=== PATIENT | female | born 2000 | race Caucasian/White ===

== ENCOUNTER 2022-03-22 17:00 | Outpatient (RCR) | payer BC, SELFPAY | END 2022-05-15 12:14 | disposition home or self-care (01) | PROVIDERS: PCP Family Medicine; Visit Provider Family Medicine | DX: M25.511 Pain in right shoulder (principal); Z51.89 Encounter for other specified aftercare | CPT/HCPCS: 97110; 97140; 97161 ==

== ENCOUNTER 2022-03-28 12:54 | Emergency (ER) | payer BC, SELFPAY ==
[2022-03-28 13:22] VITALS: BP 137/72; PULSE 123; RESP 16; TEMP 37; O2SAT 97; BMI 35.9
[2022-03-28] MEDS: HYDROCODONE-ACETAMIN 5-325 MG 1 TAB PO (15:34)
[2022-03-28] MEDS: LIDOCAINE 1% MDV 30 ML INJECTION (15:35)
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
--- OUTSIDE RECORDS SUMMARY | 2022-03-28 15:49 | XMS_ITS | Encounter Summary ---
:2000 Author Organization [facility] Address [address] [place] [address] Care Team Providers Name Role Phone Lionel Luo M.D. Primary Care Provider [phone] Reason for Visit Reason Comments COVID Inquiry Encounter Details Date Type Department Care Team Description 05/26/2020 Clinical Communication Department of Lionel Beatty Medicine in [place] [address] [place], [place] [phone] Social History Tobacco Use Types Packs/Day Years [...] 07/21/2021 relatives? How often do you attend baptism or sabianist services? Never 07/21/2021 Do you belong to any clubs or organizations such as No 07/21/2021 baptism groups, unions, fraternal or athletic groups, or [...] 12 months, you worried that your food Someti mes true 07/21/2021 would run out before you got money to buy more. Within the past 12 months, the food you bought just Never tr ue 07/21/2021 didn't last and you didn't have [...] place to sleep or slept in a fdc (including now)? Education Answer Date Recorded What is the highest level of school you have Some college, n o degree 05/29/2019 completed or the highest degree you have received? 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 documented as of this encounter Miscellaneous Notes Telephone Encounter - Zain Chioma Alvarado - 05/26/2020 12:39 PM CST COVID DOS/PASS Screening What is the patient requesting?: Additional Appointments (Continue with screening) Have you tested positive for COVID-19 in the last 30 days (20 days for ARZ) or do you have a pendingCOVID-19 test because you had symptoms?: No (Continue with screening) Have you had close contact* with a person who has a LABORATORY CONFIRMED case of COVID-19 in the past 14 days?: No (Continue with screening) When is the patient asking to be scheduled F2F?: Not applicable in [facility], [facility], [facility] (Continue screening) Plan: Endpoint recommendation: Followed regional [facility] *Reminder if sending patient for testing in [facility] or [facility], an email notification is required. EATION THERAPY DIRECTOR documented in this encounter Plan of Treatment Not on filedocumented as of this encounter Visit Diagnoses Not on filedocumented in this encounter Additional Health Concerns Assessment Noted Time PHQ-9 Depression Total Score: 9 01/21/2019 3:13 PM CDT documented as of this encounter Care Teams Field Staff Relationship Specialty Start Date End Date Lionel Luo M.D. PCP - General 01/12/17 [address] [place] [address] documented as of this encounter
--- OUTSIDE RECORDS SUMMARY | 2022-03-28 15:49 | XMS_ITS | Encounter Summary ---
:2000 Author Organization [facility] Address [address] [place] [address] Care Team Providers Name Role Phone Lionel Luo M.D. Primary Care Provider [phone] Reason for Referral Specialty Diagnoses / Procedures Referred By Contact Refer red To Contact [facility] Aneesh rodríguez [facility] Region [address] [place] [address] Referral ID Status Reason Start Date Expiration Date Visits Requ ested Visits Authorized Encounter Details Date Type Department Care Team Description 11/18/2020 Immunization Department of [facility] er For COVID-19 Medicine in [facility] Immunization [place] (Primary Dx) [address] [place] [address] Social History Tobacco Use Types Packs/Day Years [...] 07/21/2021 relatives? How often do you attend yazidism or denominational services? Never 07/21/2021 Do you belong to any clubs or organizations such as No 07/21/2021 yazidism groups, unions, fraternal or athletic groups, or [...] place to sleep or slept in a longterm (including now)? Education Answer Date Recorded What is the highest level of school you have Some college, n o degree 05/29/2019 completed or the highest degree you have received? 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 encounter Plan of Treatment Scheduled Referrals Name Type Priority Associated Diagnoses Order S chedule Covid immunization Outpatient Referral Routine Encounter For E xpected: office visit COVID-19 Vaccine 12/09/2020, Subsequent; 21 days Immunization Expires: 11/19/2023 documented as of this encounter Visit Diagnoses Diagnosis Encounter For COVID-19 Vaccine Immunizat ion - Primary documented in this encounter Additional Health Concerns Assessment Noted Time PHQ-9 Depression Total Score: 9 01/21/2019 3:13 PM CDT documented as of this encounter Care Teams Home Lending Officer Relationship Specialty Start Date End Date Lionel Luo M.D. PCP - General 01/12/[address] [facility] [phone] documented as of this encounter
--- OUTSIDE RECORDS SUMMARY | 2022-03-28 15:49 | XMS_ITS | Encounter Summary ---
:2000 Author Organization [facility] Address [address] [place] [address] Care Team Providers Name Role Phone Lionel Luo M.D. Primary Care Provider [phone] Encounter Details Date Type Department Care Team Description 09/28/2020 Hospital Encounter Department of Radiology, Sherrell Hamm, [facility], in CONCESSION STAND ATTENDANT, C. N.P. [facility] [address] [place] [phone] Social History Tobacco Use Types Packs/Day Years [...] 07/21/2021 relatives? How often do you attend buddhism or bahai services? Never 07/21/2021 Do you belong to any clubs or organizations such as No 07/21/2021 buddhism groups, unions, fraternal or athletic groups, or [...] place to sleep or slept in a fpc (including now)? Education Answer Date Recorded What is the highest level of school you have Some college, n o degree 05/29/2019 completed or the highest degree you have received? 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 dextroamphetamine Take 1 capsule 30 capsule 0 01/21/2019 (DEXEDRINE SPANSULE) 15 mg (15 mg total) by ER capsuleIndications: mouth daily. Attention Deficit With Hyperactivity Disorder propranoloL (INDERAL) 40 mg 0 07/07/20 20 tablet FLUoxetine (PROzac) 10 mg 0 09/27/2020 07/21/2021 capsule FLUoxetine (PROzac) 20 mg Take 1 capsule 30 capsule 1 201807/21/2021 capsuleIndications: Anxiety (20 mg total) by Generalized Disorder mouth daily. levonorgestreL-ethinyl Take 1 tablet by 84 tablet 4 020 07/04/2021 estrad mouth daily. (DUYENE,ABNER,ARIADNE) 0.1-20 mg-mcg per tabletIndications: Management Contraception Prescription documented as of this encounter Plan of Treatment Not on filedocumented as of this encounter Procedures Procedure Name Priority Date/Time Associated Comments Diagnosis DX ANKLE RIGHT 3+ RAD - Routine 09/28/2020 6:50 Injury Ankle Result s for this VIEWS (most inpatients PM CDT Initial Right procedure are in and all the results outpatients) section. documented in this encounter Results DX Ankle Right 3+ Views (09/28/2020 6:50 PM CDT) Anatomical Region Laterality Modality Lower Extremity, Ankle, Musculoskeletal RST LOS, Right Digital Radiography Musculoskeletal ARZ LOS, Muskuloskeletal FLA LOS Specimen (Source) Anatomical Collection Method Collection Time Re ceived Time Location / / Volume Laterality 09/28/2020 7:01 PM CDT Impressions 09/28/2020 7:02 PM CDT No acute radiographic abnormality of the right ankle. Narrative 09/28/2020 7:02 PM CDT EXAM: DX ANKLE RIGHT 3+ VIEWS COMPARISON: 12/11/2012. FINDINGS: Stable bone island within the right distal tibia. Small ossification distal to the right lateral malleolus al so appears stable, likely sequela of prior ligamentous injury. No acute fract ure or destructive osseous abnormality of the right ankle. No significant soft tissue swelling. No degenerative findings. Ankle mortise and talar dome a ppear intact. Procedure Note [place] Joshua M.D. - 09/28/2020For matting of this note might be different from the original. EXAM: DX ANKLE RIGHT 3+ VIEWS COMPARISON: 12/11/2012. FINDINGS: Stable bone island within the right distal tibia. Small ossification distal to the right lateral malleolus al so appears stable, likely sequela of prior ligamentous injury. No acute fract ure or destructive osseous abnormality of the right ankle. No significant soft tissue swelling. No degenerative findings. Ankle mortise and talar dome a ppear intact. IMPRESSION: No acute radiographic abnormality of the right ankle. Savi Hamm APRN, C.N.P. IMG DIAGNOSTIC IMAGING PRO CEDURES documented in this encounter Visit Diagnoses Not on filedocumented in this encounter Additional Health Concerns Assessment Noted Time PHQ-9 Depression Total Score: 9 01/21/2019 3:13 PM CDT documented as of this encounter Care Teams Canvas Products Sales Representative Relationship Specialty Start Date End Date Lionel Luo M.D. PCP - General 01/12/[address] [place] [phone] documented as of this encounter
--- OUTSIDE RECORDS SUMMARY | 2022-03-28 15:49 | XMS_ITS | Encounter Summary ---
:2000 Author Organization [facility] Address [address] [place] [address] Care Team Providers Name Role Phone Lionel Luo M.D. Primary Care Provider [phone] Reason for Referral Outpatient (Routine) - Closed Specialty Diagnoses / Procedures Referred By Contact Refer red To Contact Sleep Medicine Diagnoses Obstructive Sleep Apnea Adult Alyssa Thomas APRN, [facility] C.N.P. [address] [place] [address] Referral ID Status Reason Start Date Expiration Date Visits V isits Requested Authorized [id number] Closed Specialty 03/08/2021 03/08/2022 1 1 Services Required Reason for Visit Reason Comments Sleep Apnea Mouth guard, has questions a bout cpap Encounter Details Date Type Department Care Team Description 03/08/2021 Office Visit Department of [facility] Alyssa Thomas Obst ructive Sleep Apnea Medicine in [place], C.N.P. Adult (Primary Dx) Christian Darling [address] [place] [phone] Social History Tobacco Use Types Packs/Day Years [...] 07/21/2021 relatives? How often do you attend episcopalian or yazidi services? Never 07/21/2021 Do you belong to any clubs or organizations such as No 07/21/2021 episcopalian groups, unions, fraternal or athletic groups, or [...] place to sleep or slept in a skilled nursing (including now)? Education Answer Date Recorded What is the highest level of school you have Some college, n o degree 05/29/2019 completed or the highest degree you have received? 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 - 03/08/2021 11:30 AM CDT SUBJECTIVE CHIEF COMPLAINT / REASON FOR VISIT Sleep Apnea (Mouth guard, has questions about cpap) HISTORY OF PRESENT ILLNESS Ruy Rice is a 20 y.o. female who presents for prescription for mouth guard. Patient has known obstructive sleep apnea. She started on a CPAP in March 2018. She has been seen [facility] in [place] for her sleep apnea. She is not tolerating the CPAP as it is uncomfortable for her to wear it. She becomes claustrophobic. They have tried a new mask and she still not having any benefit. Mom states she notices a huge difference in the patient's mood and behavior with her wearing the CPAP and not. They were more concerned because she is starting college again what to make sure she isgetting good sleep. They are wondering if she can have a mouth guard instead of the CPAP to help with her sleep apnea. Mom is also questioning whether not she can start a sleep aid to help her toleratethe CPAP better. Review of Systems Comprehensive review of systems is negative except noted above. The following portions of the patient's history were reviewed and updated as appropriate: allergies,current medications, problem list and social history OBJECTIVE BP 127/78 (BP Location: Left arm, Patient Position: Sitting, Cuff Size: Regular) Pulse 86 Temp 36.1 ??C (Temporal) Resp 20 Wt 97.6 kg SpO2 98% BMI 33.71 kg/m?? PHYSICAL EXAM General Appearance: awake, alert, oriented, in no acute distress Skin: skin color, texture, turgor are normal Lungs: Breathing Pattern: regular, no distress ASSESSMENT / PLAN 1. Obstructive Sleep Apnea Adult Discussed with patient that I would recommend following back up with her sleep medicine provider fortheir input. I would not know what type of mouth guard to prescribe or if a mouth guard is appropriate for the type of sleep apnea she has been diagnosed. Discussed that I do not recommend starting a sleep aid to be able use the CPAP at this point. I would want Sleep medicine's approval before starting the sleep state on a regular basis. I did give the patient a referral to Sleep Medicine within the [facility] if this is more convenient. - Sleep Medicine - General consult (clinic); Future All of patient's questions were answered. Patient is agreeable with plan outlined above. Patient will return to clinic if symptoms do not improve as expected or become worse. documented in this encounter Plan of Treatment Scheduled Referrals Name Type Priority Associated Diagnoses Order S shweta Sleep Medicine - Outpatient Referral Routine Obstructive Sleep Expected: General consult Apnea Adult 03/08/2021 (clinic) (Approximate), Expires: 03/08/2024 documented as of this encounter Visit Diagnoses Diagnosis Obstructive Sleep Apnea Adult - Primary documented in this encounter Additional Health Concerns Assessment Noted Time PHQ-9 Depression Total Score: 9 01/21/2019 3:13 PM CDT documented as of this encounter Care Teams Campus Executive Director Relationship Specialty Start Date End Date Lionel Luo M.D. PCP - General 01/12/[address] [facility] [phone] documented as of this encounter
--- OUTSIDE RECORDS SUMMARY | 2022-03-28 15:49 | XMS_ITS | Encounter Summary ---
:2000 Author Organization [facility] Address [address] [place] [address] Care Team Providers Name Role Phone Lionel Luo M.D. Primary Care Provider [phone] Reason for Visit Reason Comments Anxiety For more than 8 years Appointment Request (Routine) - Closed Specialty Diagnoses / Procedures Referred By Contact Refer red To Contact Family Medicine Referral ID Status Reason Start Date Expiration Date Visits Requ ested Visits Authorized [id number] Closed 07/20/2021 07/20/2022 1 1 Encounter Details Date Type Department Care Team Description 07/21/2021 Office Visit Department of [facility] Alyssa Thomas Anxi ety [facility] Medicine in [place] DANCER, C.N.P. Disorder Christian Darling a [address] [place] [phone] Social History Tobacco Use Types Packs/Day Years [...] How often do you attend baptism or scientology services? Never 07/21/2021 Do you belong to [...] place to sleep or slept in a group home (including now)? Education Answer Date Recorded What is the highest level of school you have completed or 12 th grade 07/21/2021 the highest degree you have received? 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 encounter Last Filed Vital Signs Vital Sign Reading Time Taken Comments Blood Pressure 132/85 07/21/2021 2:56 PM PIECE MAKER Pulse 92 07/21/2021 2:56 PM PIECE MAKER Temperature 36.8 ??C (98.2 ??F) 07/21/2021 2:56 PM PIECE MAKER Respiratory Rate 16 07/21/2021 2:56 PM PIECE MAKER Oxygen Saturation 98% 07/21/2021 2:56 PM PIECE MAKER Inhaled Oxygen Concentration - - Weight 105 kg (232 lb 8 oz) 07/21/2021 2:56 PM PIECE MAKER Height 171.5 cm (5' 7.5) 07/21/2021 2:56 PM PIECE MAKER Body Mass Index 35.88 07/21/2021 2:56 PM PIECE MAKER documented in this encounter Progress Notes Alyssa Thomas, BARBER, C.N.P. - 07/21/2021 3:00 PM CST SUBJECTIVE CHIEF COMPLAINT / REASON FOR VISIT Anxiety (For more than 8 years) HISTORY OF PRESENT ILLNESS Ruy Rice is a 21 y.o. female who presents for medication refill. Patient needs a refill of her fluoxetine. She states she is almost out. She does have an appointment Psychiatry at the end ofthe month. She states anxiety is pretty well controlled at this time with the 30 mg of fluoxetine. No thoughts of suicide or self-harm. Review of Systems Comprehensive review of systems is negative except noted above. The following portions of the patient's history were reviewed: allergies, current medications, problem list and social history OBJECTIVE BP 132/85 Pulse 92 Temp 36.8 ??C (Temporal) Resp 16 Ht 171.5 cm Wt 105 kg SpO2 98% BMI35.88 kg/m?? PHYSICAL EXAM General Appearance: awake, alert, oriented, in no acute distress Skin: skin color, texture, turgor are normal Lungs: Breathing Pattern: regular, no distress Psych exam:alert,oriented, in NAD with a full range of affect, normal behavior and no psychotic features ASSESSMENT / PLAN 1. Anxiety Generalized Disorder I refilled Prozac for a total of 30 mg for the next month with 1 refill. Patient will follow-up withpsychiatry as scheduled. Further treatment evaluation based on Psychiatry recommendations. - FLUoxetine (PROzac) 10 mg capsule; Take 1 capsule (10 mg total) by mouth daily. Take with 20 mg Prozac for total of 30 mg daily. Dispense: 30 capsule; Refill: 1 - FLUoxetine (PROzac) 20 mg capsule; Take 1 capsule (20 mg total) by mouth daily. Take with 10 mg Prozac for total 30 mg of Prozac Dispense: 30 capsule; Refill: 1 All of patient's questions were answered. Patient is agreeable with plan outlined above. Patient will return to clinic if symptoms do not improve as expected or become worse. Answers for HPI/ROS submitted by the patient on 07/21/2021 No general issues: Yes No eye issues: Yes No ENT issues: Yes No heart issues: Yes No respiratory issues: Yes No GI issues: Yes No muscle/bone issues: Yes No skin issues: Yes No neurologic issues: Yes Little interest or pleasure in doing things: Yes Feeling nervous, anxious or on edge: Yes Not being able to stop or control worrying: Yes No blood/lymph issues: Yes No urinary/reproductive issues: Yes E MAKER documented in this encounter Plan of Treatment Not on filedocumented as of this encounter Visit Diagnoses Diagnosis Anxiety Generalized Disorder documented in this encounter Additional Health Concerns Assessment Noted Time PHQ-9 Depression Total Score: 4 07/21/2021 2:28 PM PIECE MAKER documented as of this encounter Care Teams Professor Of Archaeology Relationship Specialty Start Date End Date Lionel Luo M.D. PCP - General 01/12/[address] [facility] [place] [id number] documented as of this encounter
--- OUTSIDE RECORDS SUMMARY | 2022-03-28 15:49 | XMS_ITS | Encounter Summary ---
:2000 Author Organization [facility] Address [address] [place] [address] Care Team Providers Name Role Phone Lionel Luo M.D. Primary Care Provider [phone] Reason for Visit Reason Comments Med Refill control Encounter Details Date Type Department Care Team Description 05/26/2020 Refill Department of [facility] Lionel Luo, Med Refill ( Medicine in [place]ie Darling control ) [place] [address] [place] [phone] Social History Tobacco Use Types Packs/Day Years [...] or more drinks on one occasion? Ne mraisa 05/29/2019 Comment: Not asked Social Isolation Answer Date Recorded In a typical week, how many times do you talk on the Once a week 07/21/2021 phone with family, friends, or neighbors? How often do you get together with friends or Once a week 07/21/2021 relatives? How often do you attend mormon or adventism services? Never 07/21/2021 Do you belong to any clubs or organizations such as Sonya 07/21/2021 mormon groups, unions, fraternal or athletic groups, or [...] place to sleep or slept in a snf (including now)? Education Answer Date Recorded What is the highest level of school you have Some college, n o degree 05/29/2019 completed or the highest degree you have received? 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 - 05/26/2020 3:55 PM TIE KNITTER HELPER Name of Medication(s) Needing Refill: Levonorgestrel-ethinyl estrad Last Appointment: 05/29/2019 Future Appointment: 06/03/2020 with Alyssa Leyias KNITTER HELPER Telephone Encounter - Chioma Pittman - 05/26/2020 12:36 PM CST Please do not reply to sender,emails are not monitored. Thank you. If you need a prescription refill please call your pharmacy. Please allow 3 business days for processing. Expert RN: N/A (Med Refill Only) Call Center Template: ??? May we leave a message for you on this phone? no What can I help you with today? Patient has appt w/Alyssa Leyias scheduled on 06/03 ??? If Medication Refill: o What is the name and strength of the medication? control o What do you use the medication for? o How many pills do you have left? 1 week left o What pharmacy do you use (include location)? [facility] I will send this information to the appropriate staff member who will look into your concern. Is there anything else I can help you with today? Thank you for calling [facility]. KNITTER HELPER documented in this encounter Plan of Treatment Not on filedocumented as of this encounter Visit Diagnoses Diagnosis Management Contraception Prescription documented in this encounter Additional Health Concerns Assessment Noted Time PHQ-9 Depression Total Score: 9 01/21/2019 3:13 PM CDT documented as of this encounter Care Teams Television Equipment Operator Relationship Specialty Start Date End Date Lionel Luo M.D. PCP - General 6/30/[address] [place] [address] documented as of this encounter
--- OUTSIDE RECORDS SUMMARY | 2022-03-28 15:49 | XMS_ITS | Encounter Summary ---
:2000 Author [address] [facility] Address [address] [place] [address] Care Team Providers Name Role Phone Lionel Luo M.D. Primary Care Provider [phone] Reason for Visit Reason Comments COVID Nurse Line Encounter Details Date Type Department Care Team Description 01/26/2020 Clinical Communication Central Appointment Line, Covid YAMEL Nurse Line Office in [facility] [address] [place], [place] [phone] Social History Tobacco Use Types Packs/Day Years [...] 07/21/2021 relatives? How often do you attend mandaen or restorationist services? Never 07/21/2021 Do you belong to any clubs or organizations such as No 07/21/2021 mandaen groups, unions, fraternal or athletic groups, or [...] place to sleep or slept in a senior living (including now)? Education Answer Date Recorded What is the highest level of school you have Some college, n o degree 05/29/2019 completed or the highest degree you have received? 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 - 01/26/2020 3:27 PM CDT COVID-19 Nurse Line Screening ASSESSMENT COVID 19 Screening Have you had close contact with a person who has a LABORATORY CONFIRMED case of COVID-19?: No - Continue screening. In the last 48 hours have you had any of the following symptoms?: New nausea, New headache(heat flushing) Do you have any urgent symptoms?: None- Patient meets criteria for testing. PLAN Endpoint recommendation: Screening positive, testing indicated, advised to be swabbed for COVID-19, sent to [facility] located at [address] Testing hours are M-F 8:30 am to 4:30 pm. Sat-Sun 9 am to 12:30 pm. When you arrive stay in your car and someone will direct you. Care Points provided: STANDARD PRECAUTIONS FOR ALL PATIENTS: Wash hands often with soap and water for at least 20 seconds, especially after blowing your nose, coughing, sneezing, or having been in a public place. If soap and water aren't available, use a hand satellite manager that contains at least 60% alcohol. Avoid close contact with anyone who may be exhibiting respiratory symptoms such as coughing and sneezing. Avoid touching your eyes, nose and mouth. Clean and disinfect frequently touched surfaces daily. Cover your mouth and nose with a cloth face cover when around others or in public. The cloth face cover is not a substitute for social distancing. Continue to keep about 6 feet between yourself andothers. Monitor for symptoms. Do not take your temperature within 30 minutes of exercise. If your test or screen is negative and new symptoms develop please contact your provider. Educational Resource: https://www.cdc.gov/coronavirus/2019-ncov/ssuzqzj-xeicrqh-mxbx/index.html RECOMMENDATIONS TESTING CRITERIA IS MET: Stay home except to get medical care. Avoid public areasand public transportation. Separate yourself from other people and stay in a specific sick room ifpossible. Wear a cloth face covering, over your nose and mouth if you must be around other people even at home). Cover your nose and mouth when coughing or sneezing. Contact employer/occupational health department to notify them that they are being tested. Seek emergent care if any of the following occur: 1) Trouble breathing, 2) Bluish lips or face, 3) Persistent pain or pressure in the chest, 4) Newly confused or unable to stay alert and awake. Notify appropriate care provider if any new or worsening symptoms. If your test is negative and new symptoms develop please contact your care provider to determine if re-testing is necessary. Education Resources: https://www.cdc.gov/coronavirus/2019-ncov/i p-fxq-epn-sick/bcvdz-nopt-qovq.html SELF CARE FOR ALL PATIENTS: Take breaks from watching, reading, or listening to news stories. Make time to unwind. Try to do some other activities you enjoy. Connect with others. Be creative in keepingconnected with loved ones, especially those at high risk. Try healthy coping strategies such as meditation, relaxation, exercise, healthy eating habits, and avoid alcohol and drugs. Education: patient/caregiver Patient/caregiver able to teach back Patient agreeable to plan of care: Yes The following references were used: [facility] novel coronavirus (COVID- 19) resources CDC web site https://www.cdc.gov/coronavirus/2019-ncov/summary.html Nursing judgement documented in this encounter Plan of Treatment Not on filedocumented as of this encounter Visit Diagnoses Not on filedocumented in this encounter Additional Health Concerns Assessment Noted Time PHQ-9 Depression Total Score: 9 01/21/2019 3:13 PM CDT documented as of this encounter Care Teams Clinical Education Coordinator Relationship Specialty Start Date End Date Lionel Luo M.D. PCP - General 01/12/[address] [place] [phone] documented as of this encounter
--- OUTSIDE RECORDS SUMMARY | 2022-03-28 15:49 | XMS_ITS | Encounter Summary ---
:2000 Author Organization [facility] Address [address] [place] [address] Care Team Providers Name Role Phone Lionel Luo M.D. Primary Care Provider [phone] Reason for Visit Physical Therapy (Routine) - Canceled Specialty Diagnoses / Procedures Referred By Contact Refer red To Contact Diagnoses Pain Cervical Pain Scapula Alyssa Thomas APRN, [facility] Procedures PT Ongoing treatment C.N.P. [address] [place] [address] Referral ID Status Reason Start Date Expiration Date Visits V isits Requested Authorized [id number] Canceled 08/25/2020 07/15/2021 99 99 Encounter Details Date Type Department Care Team Description 09/22/2020 Clinical Support Department of Physical Alyssa Thomas APRN, C.N.P. [address] [place] [address] Pain Scapula (Primary Dx); Medicine and Guadalupe Ryder, P.TChen [address] [place] [address] Pain Cervical Rehabilitation in [place], [place] [address] [place] [phone] Social History Tobacco Use Types Packs/Day Years [...] 07/21/2021 relatives? How often do you attend pentecostal or yarsani services? 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 - 09/22/2020 10:30 AM CST Physical Therapy Outpatient Treatment Note SUBJECTIVE Patient's Name: Ruy Mijares Dwayne Referring Provider: Alyssa Thomas APRN, C.* Visit Diagnosis: 1. Pain Scapula 2. Pain Cervical Reason for Referral: Right shoulder pain, right shoulder blade pain, right neck pain Onset Date: 08/24/20 Payor: [facility] / Plan: [facility] HMO / Product Type: Medicaid HMO / No data recorded Epic Visit Count: 2 Patient comments: Patient reports she noticed some less pain at her scapular region. She continues to have some tenderness with end range shoulder movement, however it is decreased in intensity. She ishaving less right superior shoulder pain and her symptoms are mostly located in her shoulder blade. She has been compliant to her home exercise program. Contact monitoring: PPE used during therapy: Therapist was wearing the following PPE throughout entire session: surgicalmask and eye protection Patient was wearing a mask during therapy session: yes OBJECTIVE Pain: Intermittent pain right mid scapular region. Palpation: Moderate hypertonicity noted right upper trapezius, levator scapulae, supraspinatus, infraspinatus, and teres minor. Minor hypertonicity right scalenes ? Range of Motion: Left Right Shoulder Flexion 0-170 AROM: 170?? AROM: 151?? Shoulder Abduction 0-140 AROM: 170?? AROM: 138?? Shoulder Internal Rotation 0-70 AROM: T4 AROM: T8 Shoulder External Rotation 0-90 AROM: T2 AROM: T2 Strength: Bilateral shoulder strength 5/5 with the exception of bilateral external rotation 4/5 and right scaption 4+/5 TREATMENT Treatment today consisted of: Manual Therapy: With patient in left side-lying and in supine performed soft tissue mobilization andmyofascial release right upper trapezius, levator scapulae, infraspinatus, supraspinatus, and teres minor with extensive clearing along borders of scapula and spinous scapula. To improve right shoulderrange of motion performed grade 2/3 right shoulder inferior and posterior capsular mobilizations with stretching into end range right shoulder flexion and abduction. ?? Therapeutic Exercise: Educated patient in a progression of scap strengthening and stabilization to include red Thera-Band scapular row and shoulder extension. Provided patient with written and pictorial instructions of exercises. Patient was able to demonstrate exercises correctly with minimal cuing.? Home Exercise Program/Education: Wall shoulder flexion, wall shoulder abduction, levator scapulae stretch, lower cervical/upper thoracic stretch Pt reports good compliance with her HEP. Assessment Clinical Impression: Patient has been compliant to her home exercise program. Today she was able to perform end range shoulder flexion and abduction after treatment and mobilization with no symptoms. Patient continues with hypertonicity at mid right scapular region and upper trapezius that is gradually decreasing and tone. Patient remains appropriate for skilled physical therapy services to progress home exercise program with flexibility and stabilization activities into continue with manual therapytechniques to decrease muscle hypertonicity and improve shoulder range of motion. Functional Goals and Timeframes: PT Goal #1: Patient to improve score on NDI to 12% or less to demonstrate improved functional mobility. PT Goal #1 Date: 11/11/20 PT Goal #1 Status: Progressing PT Goal #2: Patient to improve right shoulder active range of motion flexion and abduction to at least 165?? to perform dressing activities overhead. PT Goal #2 Date: 11/11/20 PT Goal #2 Status: Progressing PT Goal #3: Patient to improve combined right shoulder range of motion extension/horizontal ad duction/internal rotation to at least the level of T4 to allow patient to Don/doff clothing. PT Goal #3 Date: 11/12/20 PT Goal #3 Status: Progressing No data recorded Plan Plan for next session: Review current home exercise program. Progress into scapular stabilization activities as able. Time Spent with Patient Manual Therapy (min): 20 min Therapeutic Exercise (min): 15 min Time Calculation Total Timed Units (min): 35 min Total Treatment Time (min): 35 min Guadalupe Ryder P.T. Department of Physical Medicine and Rehabilitation in [place], [place] [address] [facility] [phone] Dept: [phone] PER ON documented in this encounter Plan of Treatment Not on filedocumented as of this encounter Visit Diagnoses Diagnosis Pain Scapula - Primary Pain Cervical documented in this encounter Additional Health Concerns Assessment Noted Time PHQ-9 Depression Total Score: 9 01/21/2019 3:13 PM CDT documented as of this encounter Care Teams Material Dispatcher Relationship Specialty Start Date End Date Lionel Luo M.D. PCP - General 01/12/[address] [place] [phone] documented as of this encounter
--- OUTSIDE RECORDS SUMMARY | 2022-03-28 15:49 | XMS_ITS | Encounter Summary ---
:2000 Author Organization [facility] Address [address] [place] [address] Care Team Providers Name Role Phone Lionel Luo M.D. Primary Care Provider [phone] Reason for Visit Outpatient (Routine) - Closed Specialty Diagnoses / Procedures Referred By Contact Refer red To Contact Family Medicine Lionel Luo M.D. [facility] [address] [place] [address] Referral ID Status Reason Start Date Expiration Date Visits Requ ested Visits Authorized [id number] Closed 05/17/2020 05/17/2021 1 1 Encounter Details Date Type Department Care Team Description 07/01/2020 Office Visit Department of Family Alyssa Thomas, Need Vaccine Immunization Human Papillomavirus (Primary Dx); Medicine in RN PRIOR AUTHORIZATION, C.N.P. Management Contraception Prescription Christian Darling [address] [place] [phone] Social History Tobacco Use Types Packs/Day Years [...] 07/21/2021 relatives? How often do you attend rastafarian or scientology services? Never 07/21/2021 Do you belong to any clubs or organizations such as No 07/21/2021 rastafarian groups, unions, fraternal or athletic groups, or [...] place to sleep or slept in a alf (including now)? Education Answer Date Recorded What is the highest level of school you have Some college, n o degree 05/29/2019 completed or the highest degree you have received? 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 - 07/01/2020 4:30 PM CST SUBJECTIVE CHIEF COMPLAINT / REASON FOR VISIT No chief complaint on file. HISTORY OF PRESENT ILLNESS Ruy Rice is a 20 y.o. female who presents for medication refill. Patient needs refill of her control. She uses this to control her menses and decreased cramping. She is not sexually active. Patient declines Pap smear today. She states gives her too much anxiety. She is not having any side effects from the control. She is aware of the risks associated with control use. Patient is attending college and working. She is doing well it has been stressful with working and school. She is working with a psychiatrist to manage her anxiety. Overall, things are going well. Review of Systems Comprehensive review of systems is negative except noted above. The following portions of the patient's history were reviewed and updated as appropriate: allergies,current medications, problem list, surgical history and social history OBJECTIVE BP 122/70 (BP Location: Left arm, Patient Position: Sitting, Cuff Size: Regular) Pulse 91 Temp 36.4 ??C (Temporal) Wt 85.2 kg LMP 06/30/2020 SpO2 98% No BMI 29.43 kg/m?? PHYSICAL EXAM General Appearance: awake, alert, oriented, in no acute distress Skin: skin color, texture, turgor are normal Lungs: Normal expansion. Clear to auscultation. No rales, rhonchi, or wheezing. Heart: Heart sounds are normal. Regular rate and rhythm without murmur, gallop or rub. ASSESSMENT / PLAN 1. Management Contraception Prescription control is refilled for 1 year. Patient is aware of the risks of not having Pap smear completed. She will come in when she is ready. We talked about different relaxation techniques to use while having a Pap smear. She will let us know when she is ready. She is at lower risk if she is not sexually active at this time. - levonorgestreL-ethinyl estrad (AVIANE,ALESSE,LESSINA) 0.1-20 mg-mcg per tablet; Take 1 tablet by mouth daily. Dispense: 84 tablet; Refill: 4 2. Need Vaccine Immunization Human Papillomavirus Patient was given her last dose of HPV vaccination. She is now up-to-date on immunizations except for influenza which she declined. - 9vHPV: human papillomavirus vaccine All of patient's questions were answered. Patient is agreeable with plan outlined above. Patient will return to clinic if symptoms do not improve as expected or become worse. STARTER documented in this encounter Plan of Treatment Not on filedocumented as of this encounter Visit Diagnoses Diagnosis Need Vaccine Immunization Human Papillom avirus - Primary Management Contraception Prescription documented in this encounter Additional Health Concerns Assessment Noted Time PHQ-9 Depression Total Score: 9 01/21/2019 3:13 PM CDT documented as of this encounter Care Teams Drilling Manager Relationship Specialty Start Date End Date Lionel Luo M.D. PCP - General 01/12/[address] [place] [address] documented as of this encounter
--- OUTSIDE RECORDS SUMMARY | 2022-03-28 15:49 | XMS_ITS | Encounter Summary ---
:2000 Author Organization [facility] Address [address] [place] [address] Care Team Providers Name Role Phone Lionel Luo M.D. Primary Care Provider [phone] Reason for Referral Specialty Diagnoses / Procedures Referred By Contact Refer red To Contact Ty Garrett M.D. [facility] Region [address] [place] [address] Referral ID Status Reason Start Date Expiration Date Visits Requ ested Visits Authorized Encounter Details Date Type Department Care Team Description 10/15/2020 Orders Only [facility] PCP [facility] Ty Garrett Jr., M.D. [address] [place] [phone] (Wo rk) Social History Tobacco Use Types Packs/Day Years [...] 07/21/2021 relatives? How often do you attend presybeterian or gnosticism services? Never 07/21/2021 Do you belong to any clubs or organizations such as No 07/21/2021 presybeterian groups, unions, fraternal or athletic groups, or [...] months, you worried that your food Someadwoa arthur true 07/21/2021 would run out before you [...] place to sleep or slept in a care home (including now)? Education Answer Date Recorded What is the highest level of school you have Some college, n o degree 05/29/2019 completed or the highest degree you have received? 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 PCP - General 01/12/[address] [place] [phone] documented as of this encounter
--- OUTSIDE RECORDS SUMMARY | 2022-03-28 15:49 | XMS_ITS | Encounter Summary ---
:2000 Author Organization [facility] Address [address] [place] [address] Care Team Providers Name Role Phone Lionel Luo M.D. Primary Care Provider [phone] Reason for Referral Specialty Diagnoses / Procedures Referred By Contact Refer red To Contact Lionel Luo M.D. [facility] Region [address] [place] [address] Referral ID Status Reason Start Date Expiration Date Visits Requ ested Visits Authorized W MACHINE TENDER Encounter Details Date Type Department Care Team Description 06/14/2021 Orders Only [facility] PCP [facility] [place] Lionel Luo M.D. [address] [place] [phone] (Wo rk) Social History Tobacco Use Types [...] 07/21/2021 relatives? How often do you attend gnosticism or church services? Never 07/21/2021 Do you belong to any clubs or organizations such as No 07/21/2021 gnosticism groups, unions, fraternal or athletic groups, or [...] minutes do you engage in exercise at is 10 min 07/21/2021 level? Stress Answer [...] place to sleep or slept in a jail (including now)? Education Answer Date Recorded What is the highest level of school you have Some college, n o degree 05/29/2019 completed or the highest degree you have received? 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 PCP - General 01/12/[address] [place] [address] documented as of this encounter
--- OUTSIDE RECORDS SUMMARY | 2022-03-28 15:49 | XMS_ITS | Encounter Summary ---
:1999 Author Organization [facility] Address [address] [place] [address] Care Team Providers Name Role Phone Lionel Luo M.D. Primary Care Provider [phone] Reason for Visit Reason Comments Ankle Pain R rolled when stepping down a step while moving a bed. Today Encounter Details Date Type Department Care Team Description 09/28/2020 [facility] Ankle Initial Right (Primary Dx); [place], in [place], BARBER, C.N .P. Sprain Ankle Initial Right [place] [address] [place] [phone] Social History Tobacco Use Types Packs/Day Years [...] 07/21/2021 relatives? How often do you attend catholic or synagogue services? Never 07/21/2021 Do you belong to any clubs or organizations such as No 07/21/2021 catholic groups, unions, fraternal or athletic groups, or [...] place to sleep or slept in a half-way (including now)? Education Answer Date Recorded What is the highest level of school you have Some college, n o degree 05/29/2019 completed or the highest degree you have received? 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 - 09/28/2020 6:00 PM CDT Wear boot for protection when up and about. Rest ice and elevation when at home. Alberto wrap when at home. Gradually increase activity as tolerates. Start exercises for ankle as tolerates. Do not want to allow ankle to freeze up, be sure to stretch it daily. Followup if not gradually improving or if symptoms would worsen. Thanks for coming in to urgent caretonight. Hope this heals up quickly for you. AttachmentsThe following attachments cannot be sent through Care Everywhere. Ankle Sprain Iuia-xn-[id number] (Uzbek)Elastic Bandage and RICE Therapy (Uzbek) Walking Boot Adult (Uzbek)documented in this encounter Progress Notes Savi Hamm APRN, C.N.P. - 09/28/2020 6:00 PM CDT Images from the original note were not included. SUBJECTIVE CHIEF COMPLAINT / REASON FOR VISIT Ankle Pain (R rolled when stepping down a step while moving a bed. Today) HISTORY OF PRESENT ILLNESS Ruy Rice is a 20 y.o. female who presents for evaluation of right ankle injury. 4:50 pm moving a box spring and rolled right ankle when going down a step. [place] a crunch. Unable to bear weight. On crutches. The following portions of the patient's history were reviewed and updated as appropriate: Allergies,current medications, medical history. History of fx ankle in childhood reports frequent sprains since that time. ALLERGIES/CONTRAINDICATIONS Allergies Allergen Reactions ??? Dairy Digestive Ultra Other (see comments) ??? Gluten Other (see comments) CURRENT MEDICATIONS Current Outpatient Medications on File Prior to Visit Medication Sig ??? cetirizine (ZyrTEC) 10 mg tablet Take 1 tablet by mouth daily. ??? dextroamphetamine (DEXEDRINE SPANSULE) 15 mg ER capsule Take 1 capsule (15 mg total) by mouth daily. ??? FLUoxetine (PROzac) 10 mg capsule ??? FLUoxetine (PROzac) 20 mg capsule Take 1 capsule (20 mg total) by mouth daily. ??? levonorgestreL-ethinyl estrad (AVIANE,ALESSE,LESSINA) 0.1-20 mg-mcg per tablet Take 1 tablet by mouth daily. ??? propranoloL (INDERAL) 40 mg tablet No current facility-administered medications on file prior to visit. REVIEW OF SYSTEMS Pertinent items are noted in HPI; all other review of systems was negative. OBJECTIVE VITAL SIGNS BP 142/89 Pulse 84 Temp 36.9 ??C SpO2 98% PHYSICAL EXAMINATION Vitals signs and nursing note reviewed. Constitutional General: She is in acute distress (obvious sore ankle/foot. ). HENT Head: Comments: HEENT: Grossly intact. Cardiovascular Rate and Rhythm: Normal rate. Pulmonary Effort: Pulmonary effort is normal. Musculoskeletal General: Tenderness (lateral malleolus to medial malleous of right foot. ) and signs of injury (Right foot) present. Feet: Feet Comments: Tender to palpation and movement as noted above. Unable to dorsi/plantar flexion. CMS alltoes intact. Neurological Mental Status: She is alert. Psychiatric Mood and Affect: Mood normal. Behavior: Behavior normal. Behavior is cooperative. DIAGNOSTICS Dx Ankle Right 3+ Views Result Date: 09/28/2020 Narrative: EXAM: DX ANKLE RIGHT 3+ VIEWS COMPARISON: 12/11/2012. FINDINGS: Stable bone island within the right distal tibia. Small ossification distal to the right lateral malleolus also appears stable,likely sequela of prior ligamentous injury. No acute fracture or destructive osseous abnormality of the right ankle. No significant soft tissue swelling. No degenerative findings. Ankle mortise and talar dome appear intact. Impression: No acute radiographic abnormality of the right ankle. Personally reviewed images. ASSESSMENT / PLAN 1. Injury Ankle Initial Right - DX Ankle Right 3+ Views; Future - DX Ankle Right 3+ Views 2. Sprain Ankle Initial Right Mother is requesting walking boot for patient to have protection when on feet all day at work. Rest ice compression elevation. Follow up if not gradually improving or sooner if symptoms worsen. No further questions or concerns. Follow up as discussed. Discharged from urgent care in stable condition accompanied with her mother. I personally spent 25 minutes in total care of the patient today. documented in this encounter Plan of Treatment [...] CEDURES documented in this encounter Visit Diagnoses Diagnosis Injury Ankle Initial Right - Primary Sprain Ankle Initial Right documented in this encounter Additional Health Concerns Assessment Noted Time PHQ-9 Depression Total Score: 9 01/21/2019 3:13 PM CDT documented as of this encounter Care Teams Corporate Tax Manager Relationship Specialty Start Date End Date Lionel Luo M.D. PCP - General 01/12/[address] [place] [phone] documented as of this encounter
--- OUTSIDE RECORDS SUMMARY | 2022-03-28 15:49 | XMS_ITS | Encounter Summary ---
:1999 Author Organization [facility] Address [address] [place] [address] Care Team Providers Name Role Phone Lionel Luo M.D. Primary Care Provider [phone] Encounter Details Date Type Department Care Team Description 02/06/2019 Hospital Encounter Department of Hernan Lopez M .D. Pain Wrist Right Radiology, [place] [address] [facility], in [facility] [address] [place] [phone] [place], [place] (Work) [phone] Social History Tobacco Use Types Packs/Day Years [...] 07/21/2021 relatives? How often do you attend jain or evangelical services? Never 07/21/2021 Do you belong to any clubs or organizations such as No 07/21/2021 jain groups, unions, fraternal or athletic groups, or [...] slept in a care home (including now)? 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 dextroamphetamine Take 1 capsule 30 capsule 0 01/21/2019 (DEXEDRINE SPANSULE) 15 mg (15 mg total) by ER capsuleIndications: mouth daily. Attention Deficit With Hyperactivity Disorder FLUoxetine (PROzac) 20 mg Take 1 capsule 30 capsule 1 201807/21/2021 capsuleIndications: Anxiety (20 mg total) by Generalized Disorder mouth daily. levonorgestrel-ethinyl Take 1 tablet by 84 tablet 3 018 05/28/2019 estrad mouth daily. (NICHOLAS,ABNER,ARIADNE) 0.1-20 mg-mcg per tabletIndications: Management Contraception Prescription documented as of this encounter Plan of Treatment Not on filedocumented as of this encounter Procedures Procedure Name Priority Date/Time Associated Comments Diagnosis DX WRIST RIGHT 3+ RAD - Routine 02/06/2019 3:47 Pain Wrist Right Re sults for this VIEWS (most inpatients PM CDT procedure a re in and all the results outpatients) section. documented in this encounter Results DX Wrist Right 3+ Views (02/06/2019 3:47 PM CDT) Anatomical Region Laterality Modality Upper Extremity, Wrist, Musculoskeletal RST LOS, Right Computed Radiography Musculoskeletal ARZ LOS, Muskuloskeletal FLA LOS Specimen (Source) Anatomical Collection Method Collection Time Re ceived Time Location / / Volume Laterality 02/06/2019 3:52 PM CDT Impressions 02/06/2019 3:59 PM CDT Nondisplaced fracture of the radial styl oid. Narrative 02/06/2019 3:59 PM CDT EXAM: DX WRIST RIGHT 3+ VIEWS COMPARISON: None FINDINGS: Soft tissues are unremarkable. There is a nondisplaced fracture of the radial styloid. No additional fracture i dentified. Wrist joint spaces are preserved. Procedure Note Olegario Ortega Jr., M.D. - 2018 EXAM: DX WRIST RIGHT 3+ VIEWS COMPARISON: None FINDINGS: Soft tissues are unremarkable. There is a nondisplaced fracture of the radial styloid. No additional fracture i dentified. Wrist joint spaces are preserved. IMPRESSION: Nondisplaced fracture of the radial styl oid. Hernan [facility] CASSIE EASLEY documented in this encounter Visit Diagnoses Diagnosis Pain Wrist Right documented in this encounter Additional Health Concerns Assessment Noted Time PHQ-9 Depression Total Score: 9 01/21/2019 3:13 PM CDT documented as of this encounter Care Teams Control Panel Operator Crude Unit Relationship Specialty Start Date End Date Lionel Luo M.D. PCP - General 01/12/[address] [place] [phone] documented as of this encounter
--- OUTSIDE RECORDS SUMMARY | 2022-03-28 15:49 | XMS_ITS | Encounter Summary ---
:1999 Author Organization [facility] Address [address] [place] [address] Care Team Providers Name Role Phone Lionel Luo M.D. Primary Care Provider [phone] Encounter Details Date Type Department Care Team Description 08/24/2020 Hospital Encounter Department of Radiology Loyda Thomas, Pain Neck; in [facility] ruma BLANDON C.N.P. Pain Scap[place] [address] [place] [phone] Social History Tobacco Use Types Packs/Day Years [...] 07/21/2021 relatives? How often do you attend adventist or sikhism services? Never 07/21/2021 Do you belong to any clubs or organizations such as No 07/21/2021 adventist groups, unions, fraternal or athletic groups, or [...] place to sleep or slept in a custodial (including now)? Education Answer Date Recorded What is the highest level of school you have Some college, n o degree 05/29/2019 completed or the highest degree you have received? 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 levonorgestreL-ethinyl Take 1 tablet by 84 tablet 4 020 07/04/2021 estrad mouth daily. (ABNER PETERSON,ARIADNE) 0.1-20 mg-mcg per tabletIndications: Management Contraception Prescription documented as of this encounter Plan of Treatment Not on filedocumented as of this encounter Visit Diagnoses Diagnosis Pain Neck Pain Scapula documented in this encounter Additional Health Concerns Assessment Noted Time PHQ-9 Depression Total Score: 9 01/21/2019 3:13 PM CDT documented as of this encounter Care Teams Flexboard Operator Relationship Specialty Start Date End Date Lionel Luo M.D. PCP - General 01/12/[address] [facility] [phone] documented as of this encounter
--- OUTSIDE RECORDS SUMMARY | 2022-03-28 15:49 | XMS_ITS | Encounter Summary ---
:1999 Author Organization [facility] Address [address] [place] [address] Care Team Providers Name Role Phone Lionel Luo M.D. Primary Care Provider [phone] Reason for Visit Reason Comments COVID Nurse Line Encounter Details Date Type Department Care Team Description 10/17/2019 Clinical Communication Central Appointment Line, Covid YAMEL Nurse Line Office in [facility] [address] [place], [place] [phone] Social History Tobacco Use Types Packs/Day Years [...] 07/21/2021 relatives? How often do you attend christianity or baptism services? 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 - 10/17/2019 5:50 PM CDT COVID-19 Nurse Line Screening ASSESSMENT COVID 19 Screening Have you had close contact with a person who has a LABORATORY CONFIRMED case of COVID-19?: No - Continue screening. In the last 48 hours have you had any of the following symptoms?: New diarrhea, New sore throat, Newchills Do you have any urgent symptoms?: None- Patient meets criteria for testing. PLAN Endpoint recommendation: Screening positive, testing indicated, advised to be swabbed for COVID-19, sent to [place], [place] and Self-isolation, quarantine at home Care Points provided: Wash hands often with soap and water for at least 20 seconds, especially afterblowing your nose, coughing, sneezing, or having been in a public place If soap and water aren't available, use a hand hoister that contains at least 60% alcohol Avoid touching your face, nose and eyes Stay home except to get medical care Avoid public areas (do not go to work, school, etc) Avoid public transportation Stay in a specific room away from other people and pets Use a separate bathroom ifpossible Wear a facemask if you are sick before you enter the medical office Advise to contact theiremployer/occupational health department Go to the nearest emergency department if any of the following occur: 1) New shortness of breath at rest, 2) Pain, pressure or tightness unrelated to coughing inthe chest, jaw or arm, 3) Newly confused or unable to stay alert and awake Educational resources include- http://www.cdc.gov/coronavirus Education: patient/caregiver Patient/caregiver able to teach back Patient agreeable to plan of care: Yes The following references were used: [facility] novel coronavirus (COVID- 19) resources CDC web site https://www.cdc.gov/coronavirus/2019-ncov/summary.html [facility] Nursing judgement Telephone Encounter - Jason Purvis - 10/17/2019 5:44 PM CDT Headache Stomach ache Diarrhea Lightheaded documented in this encounter Plan of Treatment Not on filedocumented as of this encounter Visit Diagnoses Not on filedocumented in this encounter Additional Health Concerns Assessment Noted Time PHQ-9 Depression Total Score: 9 01/21/2019 3:13 PM CDT documented as of this encounter Care Teams Oil Well Logging Engineer Relationship Specialty Start Date End Date Lionel Luo M.D. PCP - General 01/12/[address] [place] [phone] documented as of this encounter
--- OUTSIDE RECORDS SUMMARY | 2022-03-28 15:49 | XMS_ITS | Encounter Summary ---
:1999 Author Organization [facility] Address [address] [place] [address] Care Team Providers Name Role Phone Lionel Luo M.D. Primary Care Provider [phone] Reason for Visit Reason Onset Date Comments Outpatient COVID-19 Testing 03/08/2020 Encounter Details Date Type Department Care Team Description 03/08/2020 External Outreach Department of [facility] Savi Hamm , Infection Upper Medicine in [place], C.N.P. Respiratory ([place], [place] [address] Dx) [address] [place] [phone] Social History Tobacco Use Types Packs/Day Years [...] 07/21/2021 relatives? How often do you attend latter-day or taoist services? Never 07/21/2021 Do you belong to any clubs or organizations such as No 07/21/2021 latter-day groups, unions, fraternal or athletic groups, or [...] 12 months, you worried that your food Allison mes true 07/21/2021 would run out before [...] place to sleep or slept in a residential (including now)? Education Answer Date Recorded What is the highest level of school you have Some college, n o degree 05/29/2019 completed or the highest degree you have received? 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 - 03/08/2020 1:32 PM CDT Encounter created for the drive-through COVID-19 testing. documented in this encounter Plan of Treatment Not on filedocumented as of this encounter Procedures Procedure Name Priority Date/Time Associated Diagnosis Comme nts SARS CORONAVIRUS-2, Routine 03/08/2020 1:40 PM Re sults for this PCR CDT procedure are i n the results section. documented in this encounter Results SARS Coronavirus-2, PCR (03/08/2020 1:40 PM CDT) [facility] Method Time Signature SARS Nasopharynx 03/09/2020 DTL Coronavirus-2 11:14 PM CDT Source SARS Undetected Undetected 03/09/2020 DTL Coronavirus-2 11:14 PM CDT , PCR Comment: SARS-CoV-2 RNA absent. This result does not rule out COVID-19 in the patient, as the sensitivity of the test depends o n the timing of the specimen collection and quality of the specimen. Result should be correlated with patient's history and clinical presentat ion. ----ADDITIONAL INFORMATION---- This test was developed and its performa nce characteristics determined by [facility] in a manner co nsistent with CLIA requirements. Independent review by the U.S. Food and Drug Administration is pending. Visit the CDC website: https://www.cdc.gov/coronavirus/ ?? for the most recent guidelines on [place] virus testing. Fact Sheet for Healthcare Providers: (https://www.2Checkout.Workshare/it-mmfil es/ Provider_Fact_Sheet_for_[facility]_COVI D-19.pdf) Fact Sheet for Patients: (https://www.2Checkout.Workshare/it-mmfil es/ Patient_Fact_Sheet_for_COVID-19.pdf) Specimen Anatomical Collection Method Collection Time Receive d Time (Source) Location / / Volume Laterality Varies 03/08/2020 1:40 PM 0 2:11 CDT PM CDT Savi Hamm APRN [facility] LAB MICROBIOLOGY - GENERAL ORDERABLES Performing Organization Address City/State/ZIP Code Phon e Number [facility] - [address] [place], [place] [address] [facility] [place] [address] [facility] [address] documented in this encounter Visit Diagnoses Diagnosis Infection Upper Respiratory - Primary documented in this encounter Additional Health Concerns Infection Onset Date Last Indicated Resolved Time COVID19 Pending 03/08/2020 03/08/2020 03/09/2020 8:39 AM CDT Assessment Noted Time PHQ-9 Depression Total Score: 9 01/21/2019 3:13 PM CDT documented as of this encounter Care Teams Certified Hand Therapist Relationship Specialty Start Date End Date Lionel Luo M.D. PCP - General 01/12/[address] [place] [facility] [place] [phone] documented as of this encounter
--- OUTSIDE RECORDS SUMMARY | 2022-03-28 15:49 | XMS_ITS | Encounter Summary ---
:1999 Author Organization [facility] Address [address] [place] [address] Care Team Providers Name Role Phone Lionel Luo M.D. Primary Care Provider [phone] Reason for Visit Reason Comments Med Refill Encounter Details Date Type Department Care Team Description 07/02/2021 Refill Department of Family Medicine Loyda Thomas APRN, Med Refill in [facility] C.N.P. [address] [place] [address] [place], [place] [phone] (Wo rk) Social History Tobacco Use Types [...] 07/21/2021 relatives? How often do you attend synagogue or scientology services? 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 - 07/04/2021 2:45 PM TRAFFIC CONTROLLER CABLE Name of Medication(s) Needing Refill: FALMINA Additional Information: Last fill date: 07-01-20 Last Appointment: 03-08-21 Future Appointment: None at this time FIC CONTROLLER CABLE documented in this encounter Plan of Treatment Not on filedocumented as of this encounter Visit Diagnoses Diagnosis Management Contraception Prescription documented in this encounter Additional Health Concerns Assessment Noted Time PHQ-9 Depression Total Score: 9 01/21/2019 3:13 PM CDT documented as of this encounter Care Teams Lawn Care Professional Relationship Specialty Start Date End Date Lionel Luo M.D. PCP - General 01/12/[address] [place] [phone] documented as of this encounter
--- OUTSIDE RECORDS SUMMARY | 2022-03-28 15:49 | XMS_ITS | Encounter Summary ---
:1999 Author Organization [facility] Address [address] [place] [address] Care Team Providers Name Role Phone Lionel Luo M.D. Primary Care Provider [phone] Encounter Details Date Type Department Care Team Description 07/19/2021 Immunization Department of Family Medicine in [place], [place] [address] [place] [address] Social History Tobacco Use Types Packs/Day Years Used Date Smoking Tobacco: Never Smokeless Tobacco: Never Alcohol Use Standard Drinks/Week Comments No 0 (1 standard drink = 0.6 oz pure alcoho l) Alcohol Habits Answer Date Recorded How often do you have a drink containing alcohol? Never 07/21/2021 How many drinks containing alcohol do you have on a typical or 2 05/29/2019 day when you are [...] 07/21/2021 relatives? How often do you attend congregation or samaritan services? Never 07/21/2021 Do you belong to any clubs or organizations such as No 07/21/2021 congregation groups, unions, fraternal or athletic groups, or [...] place to sleep or slept in a halfway (including now)? Education Answer Date Recorded What is the highest level of school you have Some college, n o degree 05/29/2019 completed or the highest degree you have received? 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 PCP - General 01/12/[address] [place] [phone] documented as of this encounter
--- OUTSIDE RECORDS SUMMARY | 2022-03-28 15:49 | XMS_ITS | Encounter Summary ---
:1999 Author Organization [facility] Address [address] [place] [address] Care Team Providers Name Role Phone Lionel Luo M.D. Primary Care Provider [phone] Reason for Visit Reason Onset Date Comments Outpatient COVID-19 Testing 10/18/2019 Encounter Details Date Type Department Care Team Description 10/18/2019 External Outreach Department [facility] [place] in [place]on APRN, Respiratory ( Primary Serafin Darling Dx) [place] [address] [place] [phone] Social History Tobacco Use Types Packs/Day Years [...] 07/21/2021 relatives? How often do you attend oriental orthodox or shinto services? 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 - 10/18/2019 9:04 AM CDT Encounter created for the drive-through COVID-19 testing. documented in this encounter Plan of Treatment Not on filedocumented as of this encounter Procedures Procedure Name Priority Date/Time Associated Diagnosis Comme nts SARS CORONAVIRUS-2, Routine 10/19/2019 12:04 PM Infection Uppe r Results for this PCR CDT Respiratory procedure are i n the results section. documented in this encounter Results SARS Coronavirus-2, PCR (10/19/2019 12:04 PM CDT) Component Value Ref Range Test Analysis Performed Pathologis t Method Time At Signature SARS Swab, Nasopharynx 10/20/2019 DTL Coronavirus-2 2:27 PM Source CDT SARS Negative Negative 10/20/2019 [facility] Coronavirus-2, 2:27 PM PCR CDT SARS Coronavirus This test was developed and its performance characteristics determined by 10/20/2019 DTL Interpretation [facility] in a manner cons istent with CLIA requirements. Independent review 2:27 PM by the U.S. Food and Drug Administration is pending. CDT For the most recent CDC guidelines for Coronavirus testing, visit: https://www.cdc.gov/coronavirus/ Fact Sheet for Healthcare Providers: Fact Sheet for Patients: Specimen Anatomical Collection Method Collection Time Receive d Time (Source) Location / / Volume Laterality Varies 10/19/2019 12:04 10/19/2019 4:10 (Nasopharynx) PM CDT PM CDT Nidhi Silva APRN, C.N.P. LAB MICROBIOLOGY - GENE RAL ORDERABLES Performing Organization Address City/State/ZIP Code Phon e Number [facility] - [address] [place], [place] [address] [facility] [place] [address] [facility] [address] documented in this encounter Visit Diagnoses Diagnosis Infection Upper Respiratory - Primary documented in this encounter Additional Health Concerns Assessment Noted Time PHQ-9 Depression Total Score: 9 01/21/2019 3:13 PM CDT documented as of this encounter Care Teams Heating Mechanic Relationship Specialty Start Date End Date Lionel Luo M.D. PCP - General 01/12/[address] [facility] [place] [phone] documented as of this encounter
--- OUTSIDE RECORDS SUMMARY | 2022-03-28 15:49 | XMS_ITS | Encounter Summary ---
:1999 Author Organization [facility] Address [address] [place] [address] Care Team Providers Name Role Phone Lionel Luo M.D. Primary Care Provider [phone] Encounter Details Date Type Department Care Team Description 12/09/2020 Immunization Department of [facility] er For COVID-19 Medicine in [place], [facility] ine Immunization [place] [address] [place] [address] Social History Tobacco Use Types Packs/Day [...] 07/21/2021 relatives? How often do you attend baptist or jain services? 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 PCP - General 01/12/[address] [place] [phone] documented as of this encounter
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
--- OUTSIDE RECORDS SUMMARY | 2022-03-28 15:49 | XMS_ITS | Encounter Summary ---
:1999 Author Organization [facility] Address [address] [place] [address] Care Team Providers Name Role Phone Lionel Luo M.D. Primary Care Provider Reason for Visit Reason Comments Follow-up right wrist fracture Outpatient (Routine) - Closed Specialty Diagnoses / Procedures Referred By Contact Refer red To Contact Family Medicine Hernan Lopez M.D. [facility] Region [address] [place] [address] Referral ID Status Reason Start Date Expiration Date Visits Requ ested Visits Authorized [id number] Closed 02/06/2019 02/06/2020 1 1 Encounter Details Date Type Department Care Team Description 02/13/2019 Office Visit Department of [facility] Nidhi Silva [facility] Closed Medicine in [place], INFORMATION DELIVERY ANALYST, C.N.P. Subsequent Right Christian Darling a [address] (Primary Dx) [address] [place] [phone] Social History Tobacco Use Types Packs/Day Years [...] 07/21/2021 relatives? How often do you attend cheondoism or buddhist services? Never 07/21/2021 Do you belong to any clubs or organizations such as No 07/21/2021 cheondoism groups, unions, fraternal or athletic groups, or [...] or slept in a usp (including now)? 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 - 02/13/2019 3:30 PM CDT SUBJECTIVE CHIEF COMPLAINT / REASON FOR VISIT Ruy Rice is a 18 y.o. female who presents for evaluation of Follow-up (right wrist fracture) HISTORY OF PRESENT ILLNESS 18-year-old female is here today for follow-up wrist fracture. One week ago she tripped and fell hyperextending her wrist. She fractured the radial head and was placed in a wrist brace and recommended to follow up today. She was seen on 02/06/2019. Patient states that she does not feel that the brace is keeping her immobilized as good as it should. Every time she moves her thumb she feels pain in thewrist. She rates her pain today at a 5. She has been taking Tylenol but has not been icing the area.Denies any numbness or tingling in her hand or finger. The following portions of the patient's history were reviewed and updated as appropriate: allergies,current medications, family history, medical history, social history, surgical history and problem list. REVIEW OF SYSTEMS REVIEW OF SYSTEMS A comprehensive review of systems was completed and all systems are negative except as listed under the HPI. MEDICATIONS Current Outpatient Medications on File Prior to Visit Medication Sig Dispense Refill ??? cetirizine (ZyrTEC) 10 mg tablet Take 1 tablet by mouth daily. ??? dextroamphetamine (DEXEDRINE SPANSULE) 15 mg ER capsule Take 1 capsule (15 mg total) by mouth daily. 30 capsule 0 ??? FLUoxetine (PROzac) 20 mg capsule Take 1 capsule (20 mg total) by mouth daily. 30 capsule 1 ??? levonorgestrel-ethinyl estrad (AVIANE,ALESSE,LESSINA) 0.1-20 mg-mcg per tablet Take 1 tablet by mouth daily. 84 tablet 3 No current facility-administered medications on file prior to visit. OBJECTIVE BP 114/66 Pulse 88 Temp 36.7 ??C Wt 96.5 kg LMP 01/18/2019 SpO2 98% BMI 31.88 kg/m?? PHYSICAL EXAM General: Patient is alert, oriented x 3 and in no acute distress. Musculoskeletal: Mild point tenderness at the radial head of the right wrist on the lateral aspect. No surrounding edema, ecchymosis noted. No other bony tenderness is noted. ASSESSMENT / PLAN 1. Fracture Radius Closed Subsequent Right I recommended a different brace that will immobilize the thumb. She agreed and she was fitted. She should wear this for an additional 3-4 weeks. [id number] Tylenol for discomfort. Follow up at that time if she has any symptoms that are persisting and would consider a repeat x-ray. Reviewed some s tretching and strengthening exercises after her braces off and pain has resolved. documented in this encounter Plan of Treatment Not on filedocumented as of this encounter Visit Diagnoses Diagnosis Fracture Radius Closed Subsequent Right - Primary documented in this encounter Additional Health Concerns Assessment Noted Time PHQ-9 Depression Total Score: 9 01/21/2019 3:13 PM CDT documented as of this encounter Care Teams Construction Quality Control Manager Relationship Specialty Start Date End Date Lionel Luo M.D. PCP - General 01/12/[address] [place], [place] [address] documented as of this encounter
--- OUTSIDE RECORDS SUMMARY | 2022-03-28 15:49 | XMS_ITS | Encounter Summary ---
:1999 Author Organization [facility] Address [address] [place] [address] Care Team Providers Name Role Phone Lionel Luo M.D. Primary Care Provider [phone] Reason for Referral Outpatient (Routine) - Closed Specialty Diagnoses / Procedures Referred By Contact Refer red To Contact Family Medicine Lionel Luo M.D. [facility] Region [address] [place] [address] Referral ID Status Reason Start Date Expiration Date Visits Requ ested Visits Authorized [id number] Closed 05/17/2020 05/17/2021 1 1 TAL RETOUCHER Encounter Details Date Type Department Care Team Description 05/17/2020 Orders Only [facility] PCP [facility] Lionel Luo M.D. [address] [place] [phone] (Wo rk) Social History Tobacco Use [...] 07/21/2021 relatives? How often do you attend christian or jewish services? 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 PCP - General 01/12/[address] [place] [phone] documented as of this encounter
--- OUTSIDE RECORDS SUMMARY | 2022-03-28 15:49 | XMS_ITS | Encounter Summary ---
:2000 Author Organization [facility] Address [address] [place] [address] Care Team Providers Name Role Phone Lionel Luo M.D. Primary Care Provider [phone] Reason for Visit Physical Therapy (Routine) - Canceled Specialty Diagnoses / Procedures Referred By Contact Refer red To Contact Diagnoses Pain Cervical Pain Scapula Alyssa Thomas APRN, [facility] Region Procedures PT Ongoing treatment C.N.P. [address] [place] [address] Referral ID Status Reason Start Date Expiration Date Visits V isits Requested Authorized [id number] Canceled 08/25/2020 07/15/2021 99 99 Encounter Details Date Type Department Care Team Description 10/07/2020 Clinical Support Department of Physical Alyssa Thomas APRN, C.N.P. [address] [place] [address] Pain Scapula (Primary Dx); Medicine and Guadalupe Ryder, P.TChen [address] [place] [address] Pain Cervical Rehabilitation in [place], [place] [address] [place] [phone] Social History Tobacco Use Types Packs/Day Years [...] 07/21/2021 relatives? How often do you attend amish or confucianism services? Never 07/21/2021 Do you belong to any clubs or organizations such as No 07/21/2021 amish groups, unions, fraternal or athletic groups, or [...] place to sleep or slept in a penitentiary (including now)? Education Answer Date Recorded What is the highest level of school you have Some college, n o degree 05/29/2019 completed or the highest degree you have received? 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 - 10/07/2020 11:15 AM CDT Physical Therapy Outpatient Treatment Note SUBJECTIVE Patient's Name: Ruy Mijares Dwayne Referring Provider: Alyssa Thomas APRN, C.* Visit Diagnosis: 1. Pain Scapula 2. Pain Cervical Reason for Referral: Right shoulder pain, right shoulder blade pain, right neck pain Onset Date: 08/24/20 Payor: [facility] CARE / Plan: [facility] HMO / Product Type: Medicaid HMO / No data recorded Epic Visit Count: 4 Patient comments: Patient reports she has fell backwards off a step while carrying an item last weekand injured her left ankle. Patient went to the emergency room and was prescribed a Cam boot to wear. She has been wearing with to work, but does not wear it within her home. She feels her ankle pain has been steadily decreasing. Patient reports that she has felt very little right scapular pain over the last week. Contact monitoring: PPE used during therapy: Therapist [...] end range right shoulder flexion and abduction. Also performed right shoulder lateral capsular mobilizations with gradual stretching into horizontal ad duction. ?? Therapeutic Exercise: Performed upper body ergometer 5 minutes, resistance level 6. ?? Home Exercise Program/Education: Wall shoulder flexion, wall shoulder abduction, levator scapulae stretch, lower cervical/upper thoracic stretch Red Thera-Band scapular retraction, red Thera-Band scapular extension Pt reports good compliance with her HEP. Assessment Clinical Impression: Patient has been compliant to her home exercise program. Today she was able to perform end range shoulder flexion and abduction after treatment and mobilization with no symptoms. Patient is having decreased hypertonicity at mid right scapular region and upper trapezius that is gradually decreasing in tone. Patient remains appropriate for skilled physical therapy services to progress home exercise program with flexibility and stabilization activities into continue with manual therapy techniques to decrease muscle hypertonicity and improve shoulder [...] Progress into scapular stabilization activities as able. Continue with soft tissue mobilization myofascial release to decrease muscle hypertonicity and decrease pain. Time Spent with Patient Manual Therapy (min): 30 min Therapeutic Exercise (min): 5 min Time Calculation Total Timed Units (min): 35 min Total Treatment Time (min): 35 min Guadalupe Ryder P.T. Department of Physical Medicine and Rehabilitation in [place] [address] [address] [facility] [address] Dept: [phone] Guadalupe Ryder P.T. - 10/07/2020 11:15 AM CDT Patient is a 20 y.o. female referred to clinic for Pain Scapula [M89.8X8]. Patient has been seen in Physical Therapy from 09/15/2020-10/07/2020 for a total of 4 visits. On assessment, patient presented with right scapular pain. Patient has been compliant with home exercise program and at home recommendations. REASON FOR DISCHARGE: Pt's goals have been met or partially met. Patient did not call to reschedule any additional visits. Functional Goals and Timeframes: PT Outpatient Goals [...] #2 Date: 11/11/20 PT Goal #2 Status: Achieved PT Goal #3: Patient to improve combined right shoulder range of motion extension/horizontal ad duction/internal rotation to at least the level of T4 to allow patient to Don/doff clothing. PT Goal #3 Date: 11/12/20 PT Goal #3 Status: Achieved Patient discharge at this time. Thank you for this referral. documented in this encounter Plan of Treatment Not on filedocumented as of this encounter Visit Diagnoses Diagnosis Pain Scapula - Primary Pain Cervical documented in this encounter Additional Health Concerns Assessment Noted Time PHQ-9 Depression Total Score: 9 01/21/2019 3:13 PM CDT documented as of this encounter Care Teams Director Life Sales Relationship Specialty Start Date End Date Lionel Luo M.D. PCP - General 01/12/[address] [place] [place] [address] documented as of this encounter
--- OUTSIDE RECORDS SUMMARY | 2022-03-28 15:49 | XMS_ITS | Encounter Summary ---
:2000 Author Organization [facility] Address [address] [place] [address] Care Team Providers Name Role Phone Lionel Luo M.D. Primary Care Provider [phone] Encounter Details Date Type Department Care Team Description 08/23/2021 Orders Only [facility] Lionel Luo M.D. [address] [place], [place] [phone] (Wo rk) Social History Tobacco Use [...] 07/21/2021 relatives? How often do you attend evangelical or sabianist services? Never 07/21/2021 Do you belong to any clubs or organizations such as No 07/21/2021 evangelical groups, unions, fraternal or athletic groups, or [...] place to sleep or slept in a prison (including now)? Education Answer Date Recorded What is the highest level of school you have completed or 12 th grade 07/21/2021 the highest degree you have received? 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 PCP - General 01/12/[address] [place] [address] documented as of this encounter
--- OUTSIDE RECORDS SUMMARY | 2022-03-28 15:49 | XMS_ITS | Encounter Summary ---
:2000 Author Organization [facility] Address [address] [place] [address] Care Team Providers Name Role Phone Lionel Luo M.D. Primary Care Provider [phone] Encounter Details Date Type Department Care Team Description 08/24/2020 Hospital Encounter Department of Radiology Loyda Thomas, Pain Neck; in [facility] ruma BLANDON C.N.P. Pain Scapula [address] [place] [phone] Social History Tobacco Use Types Packs/Day Years [...] 07/21/2021 relatives? How often do you attend spiritism or gnosticism services? Never 07/21/2021 Do you belong to any clubs or organizations such as No 07/21/2021 spiritism groups, unions, fraternal or athletic groups, or [...] place to sleep or slept in a [facility] (including now)? Education Answer Date Recorded What is the highest level of school you have Some college, n o degree 05/29/2019 completed or the highest degree you have received? 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 (NICHOLAS,ABNER,ARIADNE) 0.1-20 mg-mcg per tabletIndications: Management Contraception Prescription documented as of this encounter Plan of Treatment Not on filedocumented as of this encounter Procedures Procedure Name Priority Date/Time Associated Comments Diagnosis DX CERVICAL SPINE RAD - Routine 08/24/2020 12:11 Pain Neck Results for this 2-3 VIEWS (most inpatients PM PROGRAM DEVELOPER Pain Scapula procedure a re in and all the results outpatients) section. documented in this encounter Results DX Cervical Spine 2-3 Views (08/24/2020 12:11 PM PROGRAM DEVELOPER) Anatomical Region Laterality Modality Cervical Spine, Musculoskeletal RST LOS, N/A Digital Radiography Neuroradiology ARZ LOS, Muskuloskeletal FLA LOS Specimen (Source) Anatomical Collection Method Collection Time Re ceived Time Location / / Volume Laterality 08/24/2020 12:15 PM PROGRAM DEVELOPER Impressions 08/24/2020 12:17 PM PROGRAM DEVELOPER Negative cervical spine. Normal neural foramina and facets on the right. Narrative 08/24/2020 12:17 PM PROGRAM DEVELOPER EXAM: DX CERVICAL SPINE 2-3 VIEWS COMPARISON: [...] and facets on the right. Alyssa Thomas APRN C.N.PChen IMG DIAGNOSTIC IMAGING PROC EDURES documented in this encounter Visit Diagnoses Diagnosis Pain Neck Pain Scapula documented in this encounter Additional Health Concerns Assessment Noted Time PHQ-9 Depression Total Score: 9 01/21/2019 3:13 PM CDT documented as of this encounter Care Teams Healthcare Architect Relationship Specialty Start Date End Date Lionel Luo M.D. PCP - General 01/12/[address] [place] [address] documented as of this encounter
--- OUTSIDE RECORDS SUMMARY | 2022-03-28 15:49 | XMS_ITS | Encounter Summary ---
:2000 Author Organization [facility] Address [address] [place] [address] Care Team Providers Name Role Phone Lionel Luo M.D. Primary Care Provider [phone] Reason for Visit Physical Therapy (Routine) - Canceled Specialty Diagnoses / Procedures Referred By Contact Refer red To Contact Diagnoses Pain Cervical Pain Scapula Alyssa Thomas APRN, [facility] Region Procedures PT Ongoing treatment C.N.P. [address] [place] [address] Referral ID Status Reason Start Date Expiration Date Visits V isits Requested Authorized [id number] Canceled 08/25/2020 07/15/2021 99 99 Encounter Details Date Type Department Care Team Description 09/28/2020 Clinical Support Department of Physical Alyssa Thomas APRN, C.N.P. [address] [place] [address] Pain Scapula (Primary Dx); Medicine and Guadalupe Ryder, P.TChen [address] [place] [address] Pain Cervical Rehabilitation in [place], [place] [address] [place] [phone] Social History Tobacco Use Types Packs/Day Years [...] 07/21/2021 relatives? How often do you attend confucianism or confucianist services? 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 - 09/28/2020 9:45 AM CDT Physical Therapy Outpatient Treatment Note SUBJECTIVE Patient's Name: Ruy Mijares Dwayne Referring Provider: Alyssa Thomas APRN, C.* Visit Diagnosis: 1. Pain Scapula 2. Pain Cervical Reason for Referral: Right shoulder pain, right shoulder blade pain, right neck pain Onset Date: 08/24/20 Payor: [facility] CARE / Plan: [facility] HMO / Product Type: Medicaid HMO / No data recorded Epic Visit Count: 3 Patient comments: Patient reports she has not been as compliant to her stretching exercises over theeke, resulting in increased soreness in her shoulder blade. She has been able to sleep on her right shoulder 4 different lengths of time. She occasionally wakes pain in her right shoulder after slee ping on it, however it is not consistent with every time she is sleeping on her right side. Contact monitoring: PPE used during therapy: Therapist [...] ?? Therapeutic Exercise: Performed upper body ergometer 4 minutes, resistance level 4 with alternating directions each minute. Reviewed band exercises and patient feels that her current level of resistance remains appropriate. Performed passive range of motion stretching right shoulder into flexion, abduction, and horizontal ad duction ?? Home Exercise Program/Education: Wall shoulder flexion, [...] treatment and mobilization with no symptoms. Patient improved horizontal ad duction from 30?? to 60?? posttreatment. Patient continues with hypertonicity at mid right scapular region and upper trapezius that is gradually decreasing in tone. Patientremains appropriate for skilled physical therapy services to progress home exercise program with flexibility and stabilization activities into continue with manual therapy techniques to decrease musclehypertonicity and improve shoulder range of motion. Functional [...] Therapy (min): 30 min Therapeutic Exercise (min): 10 min Time Calculation Total Timed Units (min): 40 min Total Treatment Time (min): 40 min Guadalupe Ryder P.T. Department of Physical Medicine and Rehabilitation in [place], [place] [address] [facility] [address] Dept: [phone] documented in this encounter Plan of Treatment Not on filedocumented as of this encounter Visit Diagnoses Diagnosis Pain Scapula - Primary Pain Cervical documented in this encounter Additional Health Concerns Assessment Noted Time PHQ-9 Depression Total Score: 9 01/21/2019 3:13 PM CDT documented as of this encounter Care Teams Evp Strategy Relationship Specialty Start Date End Date Lionel Luo M.D. PCP - General 01/12/[address] [place] [address] documented as of this encounter
--- OUTSIDE RECORDS SUMMARY | 2022-03-28 15:49 | XMS_ITS | Encounter Summary ---
:2000 Author Organization [facility] Address [address] [place] [address] Care Team Providers Name Role Phone Lionel Luo M.D. Primary Care Provider [phone] Reason for Visit Physical Therapy (Routine) - Canceled Specialty Diagnoses / Procedures Referred By Contact Refer red To Contact Diagnoses Pain Cervical Pain Scapula Alyssa Thomas APRN, [facility] Region Procedures PT Ongoing treatment C.N.P. [address] [place] [phone] Referral ID Status Reason Start Date Expiration Date Visits V isits Requested Authorized [id number] Canceled 08/25/2020 07/15/2021 99 99 Encounter Details Date Type Department Care Team Description 09/17/2020 Clinical Support Department of Physical Alyssa Thomas APRN, C.N.P. [address] [place] [address] Pain Cervical (Primary Dx); Medicine and Guadalupe Ryder, P.TChen [address] [place] [address] Pain Scapula; Rehabilitation in [place], [place] [address] [place] [phone] Social History Tobacco Use Types Packs/Day Years [...] How often do you attend cheondoism or christianity services? Never 07/21/2021 Do you belong to [...] place to sleep or slept in a nursing home (including now)? Education Answer Date Recorded What is the highest level of school you have Some college, n o degree 05/29/2019 completed or the highest degree you have received? 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 - 09/17/2020 9:45 AM CST Patient did not show for visit. documented in this encounter Plan of Treatment Not on filedocumented as of this encounter Visit Diagnoses Diagnosis Pain Cervical - Primary Pain Scapula Pain Shoulder Right documented in this encounter Additional Health Concerns Assessment Noted Time PHQ-9 Depression Total Score: 9 01/21/2019 3:13 PM CDT documented as of this encounter Care Teams Forklift Mechanic Relationship Specialty Start Date End Date Lionel Luo M.D. PCP - General 01/12/[address] [place] [address] documented as of this encounter
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
--- OUTSIDE RECORDS SUMMARY | 2022-03-28 15:49 | XMS_ITS | Clinical Summary ---
:2000 Author Organization [facility] Address [address] [place] [address] Care Team Providers Name Role Phone Lionel Luo M.D. Primary Care Provider [phone] Source Comments Patient records contain information from all sites at [facility]. For routine questions regarding patient records, call [phone] during business hours, M-F 8:00 AM - 5:00 PM Central Time. Record requests for emergency care only can be directed to [phone] at any time.[facility] Allergies Active Allergy Reactions Severity Noted Date Comments Dairy Digestive Ultra Other (see comments) 08/24/2016 Gluten Other (see comments) 08/07/2016 Medications Medication Sig Dispensed Refills Start Date End Date Status cetirizine (ZyrTEC) 10 mg Take 1 tablet 0 08/09/2015 Active tablet by mouth daily. dextroamphetamine Take 1 capsule 30 capsule 0 01/21/2019 Active (DEXEDRINE SPANSULE) 15 (15 mg total) mg ER capsuleIndications: by mouth Attention Deficit With daily. Hyperactivity Disorder propranoloL (INDERAL) 40 0 07/07/2020 Active mg tablet Falmina, 28, 0.1-20 TAKE 1 TABLET 84 tablet 3 07/04/2021 Active mg-mcg per BY MOUTH tabletIndications: DAILY. Management Contraception Prescription FLUoxetine (PROzac) 10 mg Take 1 capsule 30 capsule 1 07/21/19 22 Active capsuleIndications: (10 mg total) Anxiety Generalized by mouth Disorder daily. Take with 20 mg Prozac for total of 30 mg daily. FLUoxetine (PROzac) 20 mg Take 1 capsule 30 capsule 1 07/21/19 22 Active capsuleIndications: (20 mg total) Anxiety Generalized by mouth Disorder daily. 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 Myopia 12/16/2012 Resolved Problems Problem Noted Date Resolved Date Osteotomy Mandibular Status Post 10/30/2016 019 Immunizations Name Administration Dates Next Due 4vHPV (discontinued) 01/11/2012, 11/08/2011 9vHPV 07/01/2020 DTaP (Infanrix, Tripedia) 12/05/2004, 1999, 1999 , 1999 DTaP / Hib 07/12/2000 HepA Pediatric/Adolescent 08/13/2017, 10/05/2015 HepB Pediatric/Adolescent 07/12/2000, 1999, 1999 , 1999 Hib (PRP-T) (ACTHIB, HIBERIX) 07/12/2000, 1999, 1999, 1999 IPV 12/05/2004, 07/12/2000, 1999, 1999 MCV4 (Menactra) 10/05/2015 MCV4 (Menveo) 11/08/2011 MMR 12/05/2004, 04/12/2000 PCV7 (discontinued) 04/12/2000 SARS-COV-2 (COVID-19) - FEMA Guides (12 07/19/2021, 12/09/2020, 0 11/18/2020 years or older) Tdap 11/08/2011 DELVIN 11/08/2011, 2000 Family History Medical History Relation Name Comments Anxiety disorder Brother Asthma Father Throat cancer Father Anxiety disorder Mother Relation Name Status Comments Brother Alive Father Alive Mother Alive Social History Tobacco Use Types Packs/Day Years Used Date Smoking Tobacco: Never Smokeless Tobacco: Never Tobacco Cessation: Counseling Given: No Alcohol Use Standard Drinks/Week Comments No 0 [...] 07/21/2021 relatives? How often do you attend caodaism or congregational services? 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 Inhaled Oxygen Concentration - - Weight 105 kg (232 lb 8 oz) 07/21/2021 2:56 PM 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 Height 171.5 cm (5' 7.5) 07/21/2021 2:56 PM 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 Body Mass Index 35.88 07/21/2021 2:56 PM 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 Plan of Treatment Health Maintenance Due Date Last Done Comments Cervical Cancer Screening 1999 Chlamydia and Gonorrhea 1999 Screening HIV Screening 1999 Hepatitis C Screening 1999 DTaP,Tdap,and Td Vaccines (7 11/07/2021 11/08/2011, 005, - Td or Tdap) 07/12/2000, Additional history exists Influenza Vaccine (#1) 2022 08/24/2006 Pneumococcal vaccine (0-64 Aged Out 04/12/2000 No lo nger eligible years) based on patient 's age to complete this topic Hepatitis B Vaccines Completed 07/12/2000, 1999, 1999, Additional history exists Meningococcal Vaccine Completed 10/05/2015, 11/08/2011 HPV Vaccines Completed 07/01/2020, 01/11/2012, 11/08/2011 COVID-19 Vaccine Completed 07/19/2021, 12/09/2020, 11/18/2020 Depression Screening (Annual Completed 07/21/2021 PHQ-2) Medical Devices Implanted Type Area Foreign Broadcast Specialist Device Shelf Model / Identifier Expiration Date Ser ial / Lot [employer]-Simplant - Ro [id number] Hardware e.g. VIVEK Flowers Implanted: Qty: 1 on 10/17/2016 pins/screws/r ods Description: Device Foreign Broadcast Specialist - VIVEK Lofton candelario. Device Status Text - [id number]. Insurance Payer Benefit Plan Subscriber ID Effective Phone Address Typ e / Group Dates BLUE CROSS BCBS BLUE [id number] 2018-[id number] ATTN: Kirsty vargas HMO BLUE SHIELD PLUS HMO nt CONSUMER [facility] [address] [address] [place] [address] [phone] [place] (Home) [place] [address] Care Teams Coding Compliance Auditor Relationship Specialty Start Date End Date Lionel Luo M.D. PCP - General 01/12/[address] [place] [address]
--- OUTSIDE RECORDS SUMMARY | 2022-03-28 15:50 | XMS_ITS | Encounter Summary ---
:2000 Author Organization [facility] Address [address] [place] [address] Care Team Providers Name Role Phone Unavailable Primary Care Provider Unavailable Encounter Details Date Type Department Care Team Description 08/24/2016 Hospital Encounter HX [facility] Alyssa Dodge, UPHOLSTERER LIMOUSINE AND HEARSE, C.N.P. [address] [place] [address] (Wo rk) Social History Tobacco Use Types Packs/Day Years Used Date Smoking Tobacco: Never Alcohol Habits Answer Date Recorded How often [...] How often do you attend gnosticist or taoist services? Never 07/21/2021 Do you [...] slept in a nursing home (including now)? 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 FLUoxetine (PROzac) 40 Take 1 capsule by 0 201507/02/2017 mg capsule mouth daily. documented as of this encounter Progress Notes Alyssa Thomas APRN, C.N.P. - 08/24/2016 3:47 PM CST Clinic Full Note CHIEF COMPLAINT/REASON FOR VISIT Rash HISTORY OF PRESENT ILLNESS Farhad Negrete is a 16-year-old female who presents to clinic with mom for evaluation of rash and itching for the last month. Mom states she had been complaining of itching all over in various spots for the last month. Mom states she in think anything of it until she saw some hives. Patient reports she gets hives randomly throughout the day and evening. Rash is very itchy. The notice that the itching started when her control bread and switched. They are wondering if this could be the cause ofthe itching. She did not take her control last evening and she has noticed an improvement in her itching or ready. Other than the itching she is tolerating her control well and desires to stay on control for menorrhagia. MEDICATIONS dextroamphetamine 15 mg oral capsule, extended release, 15 mg, 1 cap(s), PO, Daily AM, 0 refills, * dextroamphetamine 15 mg oral capsule, extended release, 15 mg, 1 cap(s), PO, Daily AM, 0 refills, * dextroamphetamine 15 mg oral capsule, extended release, 15 mg, 1 cap(s), PO, Daily AM, 0 refills, * Lutera 100 mcg-20 mcg oral tablet, 1 tab(s), PO, Daily, 3 refills PROzac 40 mg oral capsule, 40 mg, 1 cap(s), PO, Daily ZyrTEC 10 mg oral tablet, 10 mg, 1 tab(s), PO, Daily, * * indicates non-compliance ALLERGIES Dairy Digest Falmina (hives) Glutens PAST MEDICAL HISTORY Chronic Anxiety NOS Disorder Attention Deficit Hyperactive (ADHD) Disorder Autism Spectrum Historical Hip pain-swelling PROCEDURES/SURGICAL HISTORY Colonoscopy (05/30/2011), Esophagogastroduodenoscopy (05/30/2011). SOCIAL HISTORY Date Time: 08/24/2016 15:21 Tobacco: Smoking Status: Never smoker Exposure: Care provider denies smoking in home, Other: non-smoker Alcohol: Use: No Results Found Recreational Drugs: Use: No Results Found Type: No Results Found FAMILY HISTORY Mother: Negative:;;;;;;;;;;;;;;;;;;;;;; VITAL SIGNS T: 36.1 ??C (Core) HR: 87 BP: 104 / 56 SpO2: 98% WT: 87.2 kg PHYSICAL EXAMINATION GENERAL: Well developed, well nourished, alert and cooperative, and appears to be in no acute distress. LUNGS: Regular rate and rhythm of breathing. Non-labored. SKIN: Skin normal color, texture, and turgor with no lesions or eruptions at this time. Pictures shown in clinic of wheals scattered on arms, legs, and torso. IMPRESSION/REPORT/PLAN 1. Hives Ordered: 2. Reaction Drug Adverse Initial Ordered: I called the pharmacy and patient prescription brand was changed due to what they had a stock. The pharmacy is going to order a different brand of control for the patient. She will be able to greens picker a new prescription tomorrow. Patient may use Benadryl or Zyrtec as needed to help with hives. If symptoms do not improve with the change in control patient return to clinic for further evaluation. All of Mom's questions were answered. Mom is agreeable with plan outlined above. Patient will return to clinic if symptoms do not improve as expected or become worse. Electronically Signed By: ALYSSA THOMAS CNP On: 08/24/2016 03:50 PM Source: [facility] POWERCHART Document Id: [id number] AND SHOE INSPECTOR documented in this encounter Miscellaneous Notes Miscellaneous - Alyssa Thomas APRN, C.N.P. - 08/24/2016 3:50 PM CST Ambulatory Patient Summary [address] [place], [place] [id number] Visit Information Name: FARHAD NEGRETE [facility] Number: [phone] Current Date: 08/24/2016 15:50:47 Physicians Attending Provider: ALYSSA THOMAS CNP Primary Care Provider: MELANIA BENITEZ MD FARHAD NEGRETE has been given the following list of follow-up instructions, medication list, and patient education materials: Follow-up Instructions Your Medications Here is a list of your medications. It is important to take your medications as directed. Use a pillbox or chart to help remind you to take your medications. Please let your doctor or nurse know if you have problems taking your medications. Medication/Strength How to Take Indications/Special Instructions/Comments/Notes for Patient Medication Changes/Routing *cetirizine (ZyrTEC 10 mg oral tablet) 1 Tablet(s), Oral, once a day *dextroamphetamine (dextroamphetamine 15 mg oral capsule, extended release) 1 cap, Oral, once a day (in the morning) *dextroamphetamine (dextroamphetamine 15 mg oral capsule, extended release) 1 cap, Oral, once a day (in the morning) *dextroamphetamine (dextroamphetamine 15 mg oral capsule, extended release) 1 cap, Oral, once a day (in the morning) FLUoxetine (PROzac 40 mg oral capsule) 1 cap, Oral, once a day levonorgestrel-ethinyl estradiol (Lutera 100 mcg-20 mcg oral tablet) 1 Tablet(s), Oral, once a day * You have let us know that you are not taking this medication as listed. Please talk with your primary care provider or the health care provider who prescribed the medication as soon as possible. Stop Taking the Following Medications: Medication list as of 08-24-16 15:50 Attention: If you have any medications at home that are not on this list, DO NOT take them until youcontact your provider for clarification. Give a copy of your medication list to your primary care provider. Update your medication list any time medications or doses are changed and carry your medication list at all times in case of emergency. Electronically Signed By: ALYSSA THOMAS CNP Signed On:24-AUG-2016 15:47:14 Your Allergies & Intolerances Substance Reaction Symptoms Category Comments Falmina hives Drug Rash is caused from additive. Tolerates Oresythia control Dairy Digest Food Glutens Food Your Problem List Problem Status Onset Comments Disorder Attention Deficit Hyperactive (ADHD) Active Disorder Autism Spectrum Active Anxiety NOS Active Your Upcoming Appointments Date Time Location Provider No Appointments found Attention: Contact your local Clinic if further appointment detail needed. Consider Using Patient Online Services Patient Online Services is a secure online and Mobile application that lets you: ?? View lab and test results ?? View portions of your medical record including clinical notes, immunizations and discharge summaries ?? Request an appointment or medication refill ?? Review your appointment schedule ?? Send secure messages to your care team Its easy to create an account if you dont have one. Go to [email or web address] and click on Create Your Account. Then, follow the directions to complete the online form. Youll be asked for your [facility] number which you can find at the top of this document. Your Goals/Additional instructions: Source: [facility] POWERCHART Document Id: [id number] AND SHOE INSPECTOR Miscellaneous - Alyssa Thomas APRN, C.N.P. - 08/24/2016 3:50 PM CST Ambulatory Discharge Medication List [address] [id number] Visit Information Name: FARHAD NEGRETE [facility] Number: [id number] Current Date: 08/24/2016 15:50:46 Attending Provider: ALYSSA THOMAS VOLUNTEER RECRUITER Primary Care Provider: MELANIA BENITEZ MD FARHAD NEGRETE has been given the following list of medications: Your Medications It is important to take your medications as directed. Use a pill box or chart to help remind you to take your medications. Please let your doctor or nurse know if you have problems taking your medications. Medication/Strength How to Take Indications/Special Instructions/Comments/Notes for Patient Medication Changes/Routing *cetirizine (ZyrTEC 10 mg oral tablet) 1 Tablet(s), Oral, once a day *dextroamphetamine (dextroamphetamine 15 mg oral capsule, extended release) 1 cap, Oral, once a day (in the morning) *dextroamphetamine (dextroamphetamine 15 mg oral capsule, extended release) 1 cap, Oral, once a day (in the morning) *dextroamphetamine (dextroamphetamine 15 mg oral capsule, extended release) 1 cap, Oral, once a day (in the morning) FLUoxetine (PROzac 40 mg oral capsule) 1 cap, Oral, once a day levonorgestrel-ethinyl estradiol (Lutera 100 mcg-20 mcg oral tablet) 1 Tablet(s), Oral, once a day * You have let us know that you are not taking this medication as listed. Please talk with your primary care provider or the health care provider who prescribed the medication as soon as possible. Stop Taking the Following Medications: Medication list as of 08-24-16 15:50 Attention: If you have any medications at home that are not on this list, DO NOT take them until youcontact your provider for clarification. Give a copy of your medication list to your primary care provider. Update your medication list any time medications or doses are changed and carry your medication list at all times in case of emergency. Electronically Signed By: ALYSSA THOMAS VOLUNTEER RECRUITER Signed On:24-AUG-2016 15:47:14 Additional Information: Source: [facility] POWERCHART Document Id: [id number] AND SHOE INSPECTOR Miscellaneous - Radha Graham, LChenP.N. - 08/24/2016 3:21 PM CST Pediatric Field Coordinator Intake/History Pediatric Field Coordinator Intake/History Entered On: 08/24/2016 15:25 HOOF AND SHOE INSPECTOR Performed On: 08/24/2016 15:21 HOOF AND SHOE INSPECTOR by RADHA GRAHAM LPN Intake Chief Complaint : c/o itchiness, spots like bug bites numerous areas. Questioning if allergic to brand of control Temperature Core : 36.1 DegC(Converted to: 97.0 DegF) (LOW) Peripheral Pulse Rate : 87 /min Systolic Blood Pressure : 104 mmHg Diastolic Blood Pressure : 56 mmHg NIBP Mean : 72 mmHg SpO2 : 98 % Oxygen Therapy : Room air Actual Weight : 87.2 kg(Converted to: 192 lb 4 oz) Dosing Weight Clinic : 87.2 kg RADHA GRAHAM LPN - 08/24/2016 15:21 HOOF AND SHOE INSPECTOR General Info Present in Room During Exam/Procedure : Mother Languages : Wallisian Is Patient Female and 13-50 no hysterectomy : Yes Status : Patient denies Are you ? : No RADHA GRAHAM LPN - 08/24/2016 15:21 HOOF AND SHOE INSPECTOR Subjective Pain Symptoms : No RADHA GRAHAM LPN - 08/24/2016 15:21 HOOF AND SHOE INSPECTOR Dependent Habits Exposure to Tobacco Smoke : Care provider denies smoking in home, Other: non-smoker Smoking Status : Never smoker Tobacco 2A : No Tobacco Use/Currently Using : No Tobacco Use/Last 30 Days : No Tobacco Use/Last 12 months : No RADHA GRAHAM LPN - 08/24/2016 15:21 HOOF AND SHOE INSPECTOR Caffeine Use Grid Caffeine Use : Current Type : Soft drinks Frequency : Occasionally Amount : very rare RADHA GRAHAM LPN - 08/24/2016 15:21 HOOF AND SHOE INSPECTOR [facility] Document Id: [id number] HOOF AND SHOE INSPECTOR!33 AND SHOE INSPECTOR documented in this encounter Plan of Treatment Not on filedocumented as of this encounter Visit Diagnoses Not on filedocumented in this encounter
--- OUTSIDE RECORDS SUMMARY | 2022-03-28 15:50 | XMS_ITS | Encounter Summary ---
:2000 Author Organization [facility] Address [address] [place] [address] Care Team Providers Name Role Phone Unavailable Primary Care Provider Unavailable Encounter Details Date Type Department Care Team Description 10/05/2015 Hospital Encounter HX [facility] Alyssa Dodge, TERRAZZO POLISHER HELPER, C.N.P. [address] [place] [address] (Wo rk) Social History Tobacco Use Types Packs/Day Years Used Date Smoking Tobacco: Never Assessed Alcohol Habits Answer Date Recorded How often [...] 07/21/2021 relatives? How often do you attend methodist or jain services? Never 07/21/2021 Do you belong to any clubs or organizations such as No 07/21/2021 methodist groups, unions, fraternal or athletic groups, or [...] or slept in a jail (including now)? 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 documented as of this encounter Progress Notes Alyssa Nicole APRN, C.NMike - 10/05/2015 4:03 PM CDT Clinic Full Note CHIEF COMPLAINT/REASON FOR VISIT Medication refill HISTORY OF PRESENT ILLNESS Patient presents to the clinic with Mom for refill of Dexedrine. She has been taking Dexedrine daily when in school for ADHD. She is stable on her medications. She does really well at school. She is getting mostly A's. She has friends. Mom would like Farhad's ears checked. She has a history of producing a lot of wax and Mom wants to make sure her ears are not occluded. Patient also needs a refill of her control. She is on control for heavy and painful menses. She is not sexually active at this time. She is tolerating the control well. She does not forget any doses. She does not smoke. MEDICATIONS Dexedrine Spansule 5 mg oral capsule, extended release, 15 mg, 3 cap(s), PO, Daily AM, 0 refills Lutera 100 mcg-20 mcg oral tablet, 1 tab(s), For further refills, please follow up with PCP, PO, Daily, 3 refills ZyrTEC 10 mg oral tablet, 10 mg, 1 tab(s), PO, Daily ALLERGIES NKA PAST MEDICAL HISTORY Chronic Anxiety NOS Disorder Attention Deficit Hyperactive (ADHD) Disorder Autism Spectrum Historical Hip pain-swelling PROCEDURES/SURGICAL HISTORY Colonoscopy (05/30/2011), Esophagogastroduodenoscopy (05/30/2011). SOCIAL HISTORY Date Time: 10/05/2015 15:39 Tobacco: Smoking Status: Never smoker Exposure: Care provider denies smoking in home, Other: non-smoker Alcohol: Use: No Results Found Recreational Drugs: Use: No Results Found Type: No Results Found Richard in High School. Lives with both parents. FAMILY HISTORY Mother: Negative:;;;;;;;;;;;;;;;; Family history negative for heart disease. SYSTEMS REVIEW Denies fever, chills, dyspnea, lightheadedness, dizziness, chest pain, chest pressure, ear pain, rhinitis, or cough. VITAL SIGNS T: 36.5 ??C (Core) HR: 88 BP: 102 / 68 SpO2: 97% WT: 91.1 kg PHYSICAL EXAMINATION GENERAL: Well developed, well nourished, alert and cooperative, and appears to be in no acute distress. HEENT: Head: normocephalic Eyes: Conjunctive non-injected. Vision grossly intact. Ears: External auditory canals with scant amount of cerumen. Tympanic membranes pearly caceres with bony landmarks present. Hearing grossly intact. Nose: No nasal discharge. Throat: Oral cavity and pharynx normal. NECK: Neck supple, non-tender without lymphadenopathy, masses, or thyromegaly. CARDIOVASCULAR: Normal S1 and S2. No S3, S4 or murmurs. Rhythm is regular. LUNGS: Regular rate and rhythm of breathing. Non-labored. Clear to auscultation in all lung berry. SKIN: Skin normal color, texture, and turgor with no lesions or eruptions. IMPRESSION/REPORT/PLAN 1. Management Contraceptive control refilled for one year. Discussed potential side effects including risk for clots withbirth control. Patient is encouraged to not start smoking. Ordered: Disorder Attention Deficit Hyperactive (ADHD) Ordered: Disorder Autism Spectrum Refilled Dextroamphetamine for 3 months. Patient will call in when due for next refills. She will need to be seen in 6 months. Ordered: Orders: dextroamphetamine, 15 mg = 1 cap(s), PO, Daily AM, # 30 cap(s), 0 Refill(s), Maintenance dextroamphetamine, 15 mg = 1 cap(s), PO, Daily AM, # 30 cap(s), 0 Refill(s), Maintenance dextroamphetamine, 15 mg = 1 cap(s), PO, Daily AM, # 30 cap(s), 0 Refill(s), Maintenance levonorgestrel-ethinyl estradiol, 1 tab(s), PO, Daily, # 90 tab(s), 3 Refill(s), Maintenance, Pharmacy: [facility] Return Visit [facility] 30 Min All of patient and Mom's questions were answered. Patient and Mom are agreeable with plan outlined above. Patient will return to clinic in 6 months or sooner if needed. Electronically Signed By: ALYSSA NICOLE CNP On: 10/08/2015 02:19 PM Source: [facility] POWERCHART Document Id: [id number] documented in this encounter Miscellaneous Notes Miscellaneous - Alyssa Nicole APRN, C.N.P. - 10/05/2015 4:09 PM CDT Ambulatory Patient Summary [address] [place], [place] [phone] Visit Information Name: PENELOPEFARHAD [facility] Number: [id number] Current Date: 10/05/2015 16:09:55 Physicians Attending Provider: ALYSSA NICOLE CNP Primary Care Provider: MELANIA BENITEZ MD [...] Take Indications/Special Instructions/Comments/Notes for Patient Medication Changes/Routing cetirizine (ZyrTEC 10 mg oral tablet) 1 Tablet(s), Oral, once a day dextroamphetamine (Dexedrine Spansule 5 mg oral capsule, extended release) 3 cap, Oral, once a day (in the morning) dextroamphetamine (dextroamphetamine 15 mg oral capsule, extended release) 1 cap, Oral, once a day (in the morning) Routed to Printer dextroamphetamine (dextroamphetamine 15 mg oral capsule, extended release) 1 cap, Oral, once a day (in the morning) Routed to Printer dextroamphetamine (dextroamphetamine 15 mg oral capsule, extended release) 1 cap, Oral, once a day (in the morning) Routed to Printer levonorgestrel-ethinyl estradiol (Lutera 100 mcg-20 mcg oral tablet) 1 Tablet(s), Oral, once a day Routed to [facility] [address] [place] [address] Stop Taking the Following Medications: Medication list as of 10-05-15 16:09 Attention: If you have any medications at home that are not on this list, DO NOT take them until youcontact your provider for clarification. Give a copy of your medication list to your primary care provider. Update your medication list any time medications or doses are changed and carry your medication list at all times in case of emergency. Electronically Signed By: ALYSSA NICOLE CNP Signed On:05-OCT-2015 16:09:51 Your Allergies & Intolerances Substance Reaction Symptoms Category Comments No Known Allergies Drug Your Problem List Problem Status Onset Comments [...] if you dont have one. Go to [email or web address] and click on Create Your Account. Then, follow the directions to complete the online form. Youll be asked for your [facility] number which you can find at the top of this document. Your Goals/Additional instructions: Source: [facility] POWERCHART Document Id: [id number] Miscellaneous - Alyssa Nicole APRN, C.N.P. - 10/05/2015 4:09 PM CDT Ambulatory Discharge Medication List [facility] [address] [place], [place] [phone] Visit Information Name: FARHAD NEGRETE [facility] Number: [id number] Visit Date: 10/05/2015 16:09:55 Attending Provider: ALYSSA NICOLE CNP Primary Care Provider: MELANIA BENITEZ MD [...] Take Indications/Special Instructions/Comments/Notes for Patient Medication Changes/Routing cetirizine (ZyrTEC 10 mg oral tablet) 1 Tablet(s), Oral, once a day dextroamphetamine (Dexedrine Spansule 5 mg oral capsule, extended release) 3 cap, Oral, once a day (in the morning) dextroamphetamine (dextroamphetamine 15 mg oral capsule, extended release) 1 cap, Oral, once a day (in the morning) Routed to Printer dextroamphetamine (dextroamphetamine 15 mg oral capsule, extended release) 1 cap, Oral, once a day (in the morning) Routed to Printer dextroamphetamine (dextroamphetamine 15 mg oral capsule, extended release) 1 cap, Oral, once a day (in the morning) Routed to Printer levonorgestrel-ethinyl estradiol (Lutera 100 mcg-20 mcg oral tablet) 1 Tablet(s), Oral, once a day Routed to [address] [address] Stop Taking the Following Medications: Medication list as of 10-05-15 16:09 Attention: If you have any medications at home that are not on this list, DO NOT take them until youcontact your provider for clarification. Give a copy of your medication list to your primary care provider. Update your medication list any time medications or doses are changed and carry your medication list at all times in case of emergency. Electronically Signed By: ALYSSA NICOLE CNP Signed On:05-OCT-2015 16:09:51 Additional Information: Source: [facility] POWERCHART Document Id: [id number] Miscellaneous - Agustina Locke L.P.N. - 10/05/2015 3:39 PM CDT Pediatric Bilingual Sales Representative Intake/History Pediatric Bilingual Sales Representative Intake/History Entered On: 10/05/2015 15:40 CDT Performed On: 10/05/2015 15:39 CDT by AGUSTINA LOCKE LPN Intake Chief Complaint : Med renew check ears Temperature Core : 36.5 DegC(Converted to: 97.7 DegF) Peripheral Pulse Rate : 88 /min Systolic Blood Pressure : 102 mmHg Diastolic Blood Pressure : 68 mmHg NIBP Mean : 79 mmHg SpO2 : 97 % Actual Weight : 91.1 kg(Converted to: 200 lb 13 oz) Dosing Weight Clinic : 91.1 kg AGUSTINA LOCKE LPN - 10/05/2015 15:39 CDT General Info Languages : Filipino Is Patient Female and 13-50 no hysterectomy : Yes Status : Patient denies Are you ? : No AGUSTINA LOCKE LPN - 10/05/2015 15:39 CDT Subjective Pain Symptoms : No AGUSTINA LOCKE LPN - 10/05/2015 15:39 CDT Dependent Habits Exposure to Tobacco Smoke : Care provider denies smoking in home, Other: non-smoker Smoking Status : Never smoker Tobacco 2A : No Tobacco Use/Currently Using : No Tobacco Use/Last 30 Days : No Tobacco Use/Last 12 months : No AGUSTINA LOCKE LPN - 10/05/2015 15:39 CDT Caffeine Use Grid Amount : very rare AGUSTINA LOCKE LPN - 10/05/2015 15:39 CDT Source: [facility] [employer]ART Document Id: [id number] CDT!28 documented in this encounter Plan of Treatment Not on filedocumented as of this encounter Visit Diagnoses Not on filedocumented in this encounter
--- OUTSIDE RECORDS SUMMARY | 2022-03-28 15:50 | XMS_ITS | Encounter Summary ---
:2000 Author Organization [facility] Address [address] [place] [address] Care Team Providers Name Role Phone Lionel Luo M.D. Primary Care Provider [phone] Reason for Referral Outpatient (Routine) - Closed Specialty Diagnoses / Procedures Referred By Contact Refer red To Contact Family Medicine Hernan Lopez M.D. [facility] [address] [place] [address] Referral ID Status Reason Start Date Expiration Date Visits Requ ested Visits Authorized [id number] Closed 02/06/2019 02/06/2020 1 1 Reason for Visit Reason Comments Wrist Injury x2days Appointment Request (Routine) - Closed Specialty Diagnoses / Procedures Referred By Contact Refer red To Contact Family Medicine Referral ID Status Reason Start Date Expiration Date Visits Requ ested Visits Authorized [id number] Closed 02/04/2019 02/04/2020 1 1 Encounter Details Date Type Department Care Team Description 02/06/2019 Office Visit Department of Hernan Beltran M.D. Pain Wrist Right (Primary Dx); Medicine in [facility] [address] Fracture Radius Styloid Process Closed I nitial Right [place], [place] [address] [place] [address] [place], [place] [phone] Social History Tobacco Use Types Packs/Day Years [...] 07/21/2021 relatives? How often do you attend mormonism or zoroastrianism services? Never 07/21/2021 Do you belong to any clubs or organizations such as No 07/21/2021 mormonism groups, unions, fraternal or athletic groups, or [...] months, you worried that your food Allison arthur true 07/21/2021 would run out before [...] slept in a senior living (including now)? 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 - 02/06/2019 3:15 PM CDT SUBJECTIVE CHIEF COMPLAINT / REASON FOR VISIT Ruy Rice is a 18 y.o. female who presents for evaluation of Wrist Injury (x2days). HISTORY OF PRESENT ILLNESS 18 year old female presents today for right wrist pain. She tried to break fall with stretched wrists 2 days ago, pain at right wrist, not able to use it for any weight lifting. No fingers pain. The following portions of the patient's history were reviewed and updated as appropriate: allergies,current medications and problem list. OBJECTIVE BP 128/70 Pulse 82 Temp 36.5 ??C Wt 97.3 kg LMP 01/18/2019 SpO2 98% BMI 32.14 kg/m?? PHYSICAL EXAM General: Alert, oriented, normal speech, pleasant. Extremities: Right wrist with no obvious swelling, tenderness at wrist, flexion and extension with pain, all fingers normal. Right elbow normal. Neurology: No deficits noticed. Psychiatry: Alert and oriented to time, person and place. Normal affect and stable mood. Dx Wrist Right 3+ Views Result Date: 02/06/2019 Impression: Nondisplaced fracture of the radial styloid. ASSESSMENT / PLAN #1 Pain Wrist Right See below. - DX Wrist Right 3+ Views; Future; Expected date: 02/06/2019 #2 Fracture Radius Styloid Process Closed Initial Right Right wrist fracture, non displaced. Splint with thumb spica applied, recommend her to wear it all the time. Note given for no lifting with right hand at work for a week. Recheck in a week. With her age, expected healing in 2-3 weeks. Other orders - Family Medicine office visit (clinic) - Other provider; Future; Expected date: 02/13/2019 documented in this encounter Plan of Treatment Scheduled Referrals Name Type Priority Associated Diagnoses Order [facility] Family Medicine Outpatient Referral Routine Expec andrei: office visit 02/13/2019 (clinic) - Other (Approximat e), provider Expires: 02/06/2022 documented as of this encounter Results DX Wrist Right 3+ [...] encounter Visit Diagnoses Diagnosis Pain Wrist Right - Primary Fracture Radius Styloid Process Closed I nitial Right Pain Wrist Right documented in this encounter Additional Health Concerns Assessment Noted Time PHQ-9 Depression Total Score: 9 01/21/2019 3:13 PM CDT documented as of this encounter Care Teams Country Singer Relationship Specialty Start Date End Date Lionel Luo M.D. PCP - General 01/12/[address] [place] [address] documented as of this encounter
--- OUTSIDE RECORDS SUMMARY | 2022-03-28 15:50 | XMS_ITS | Encounter Summary ---
:2000 Author Organization [facility] Address [address] [place] [address] Care Team Providers Name Role Phone Lionel Luo M.D. Primary Care Provider [phone] Encounter Details Date Type Department Care Team Description 01/25/2017 Hospital Encounter HX [facility] Nadira Dodge, MEDICAL TRANSCRIPTIONIST, C.N.P. [address] [place] [phone] (Wo rk) Social History Tobacco Use Types [...] 07/21/2021 relatives? How often do you attend scientology or worship services? Never 07/21/2021 Do you belong to any clubs or organizations such as No 07/21/2021 scientology groups, unions, fraternal or athletic groups, or [...] or slept in a custodial (including now)? 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 Last Filed Vital Signs Vital Sign Reading Time Taken Comments Blood Pressure - - Pulse - - Temperature - - Respiratory Rate - - Oxygen Saturation - - Inhaled Oxygen Concentration - - Weight 86.4 kg (190 lb 7.6 oz) 01/25/2017 1:08 PM CDT Height 174 cm (5' 8.5) 01/25/2017 1:08 PM CDT Body Mass Index 28.54 01/25/2017 1:08 PM CDT Body Mass Index Percentile 92.88 % 01/25/2017 1:08 PM CD T Growth Chart: [facility] (Girls, 2-20 Years) documented in this encounter Medications at Time of Discharge Medication Sig Dispensed Refills Start Date End Date cetirizine (ZyrTEC) 10 mg Take 1 tablet by 0 07/17 tablet mouth daily. dextroamphetamine Take 1 capsule by 0 01/25/2017 07/02/2017 (for_DEXEDRINE SPANSULE) 15 mouth every mg ER capsule morning. FLUoxetine (PROzac) 20 mg Take 3 capsules by 0 01/21/2019 capsule mouth daily. FLUoxetine (PROzac) 40 mg Take 1 capsule by 0 07/02/2017 capsule mouth daily. levonorgestrel-ethinyl Take 1 tablet by 0 017 07/02/2017 estrad mouth daily. (ABNER PETERSON,ARIADNE) 0.1-20 mg-mcg per tablet documented as of this encounter Progress Notes Nadira Thomas, BARBER, C.N.P. - 01/25/2017 1:31 PM CDT Clinic Full Note CHIEF COMPLAINT/REASON FOR VISIT Needs refills on control and ADHD med HISTORY OF PRESENT ILLNESS Ruy Negrete is a 16-year-old female who presents to clinic with mom for follow-up on ADHD medication. Patient has been stable on dextroamphetamine for her ADHD for quite a while. She only takes this when she is going to school. She did well in school last year. She will be starting her senior yearnext month. She has no side effects from the medication. Patient also needs a refill of her control. She is taking control for menorrhagia. Thisis helping control her menses well . She has no side effects from the medication . There were thoughts that she had some hives from the medication but she has continued to get these despite changing the medication. Her hives seem to come and go. They were worse in the spring . She has only had 1 or 2 episodes of hives this summer. 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 She has not been taking her Zyrtec. Patient also stopped taking her Prozac after having just surgery. She had this just surgery in the spring. Her headaches have gone away since she had this surgery. She states she normally has anxiety related to school. If her anxiety can be pretty profound . She does work with a psychiatrist for her management of anxiety. Patient will be following up with her psychiatrist to determine if she should restart the Prozac. Patient will be starting a job in [place] in a few weeks. She is very nervous about this . She has not done much interaction with people outside of her home or school. MEDICATIONS dextroamphetamine 15 mg oral capsule, extended release, 15 mg, 1 cap(s), PO, Daily AM, 0 refills dextroamphetamine 15 mg oral capsule, extended release, 15 mg, 1 cap(s), PO, Daily AM, 0 refills dextroamphetamine 15 mg oral capsule, extended release, 15 mg, 1 cap(s), PO, Daily AM, 0 refills Lutera 100 mcg-20 mcg oral tablet, 1 tab(s), PO, Daily, 3 refills PROzac 40 mg oral capsule, 40 mg, 1 cap(s), PO, Daily, * * indicates non-compliance ALLERGIES Dairy Digest Glutens PAST MEDICAL HISTORY Chronic Anxiety NOS Disorder Attention Deficit Hyperactive (ADHD) Disorder Autism Spectrum Historical Hip pain-swelling PROCEDURES/SURGICAL HISTORY Colonoscopy (05/30/2011), Esophagogastroduodenoscopy (05/30/2011). SOCIAL HISTORY Date Time: 01/25/2017 13:08 Tobacco: Smoking Status: Never smoker Exposure: Care provider denies smoking in home, Other: non-smoker Alcohol: Use: No Results Found Recreational Drugs: Use: No Results Found Type: No Results Found FAMILY HISTORY Mother:Positive: Anxiety Brother:Positive: Anxiety SYSTEMS REVIEW Denies fever, chills, dyspnea, lightheadedness, dizziness , nausea , vomiting. No chest pain or palpitations. VITAL SIGNS T: 36.5 ??C (Core) HR: 96 BP: 116 / 62 SpO2: 97% HT: 174 cm WT: 86.4 kg BMI: 28.54 PHYSICAL EXAMINATION GENERAL: Well developed, well nourished, alert and cooperative, and appears to be in no acute distress. CARDIOVASCULAR: Normal S1 and S2. No S3, S4 or murmurs. Rhythm is regular. LUNGS: Regular rate and rhythm of breathing. Non-labored. Clear to auscultation in all lung berry. SKIN: Skin normal color, texture, and turgor with no lesions or eruptions. IMPRESSION/REPORT/PLAN 1. Disorder Attention Deficit Hyperactive (ADHD) Dextroamphetamine is refilled for 3 months with 3 separate prescriptions. Patient is responsible for maintaining these prescriptions and not losing them as we will not be able to replace them. Patientis aware of potential side effects. Patient may need to take medication if she does start working rosalind ADHD may cause some concentration concerns at work as well as school. Patient will call in in 3 months for another 3 months of refills . Patient will need to be seen in clinic in about 6 months. Ordered: 2. Management Contraceptive control is refilled for 1 year. Patient is aware of the potential side effects. Ordered: Orders: dextroamphetamine, 15 mg = 1 cap(s), PO, Daily AM, # 30 cap(s), 0 Refill(s), Maintenance dextroamphetamine, 15 mg = 1 cap(s), PO, Daily AM, # 30 cap(s), 0 Refill(s), Maintenance levonorgestrel-ethinyl estradiol, 1 tab(s), PO, Daily, # 90 tab(s), 3 Refill(s), Maintenance, Pharmacy: [facility] Return Visit [facility] 30 Min Patient will meet with Psychiatry to determine if she should restart her Prozac. If there is any problems getting in with Psychiatry and she needs assistance sooner she can always come into the clinic. Patient is also encouraged to restart her Zyrtec as I suspect that urticaria may be related to stress or allergies. The Zyrtec should help these hives from happening. All of patient's questions were answered. Patient is agreeable with plan outlined above. Patient will return to clinic in 6 months or sooner if needed. Electronically Signed By: NADIRA THOMAS CNP On: 01/25/2017 01:38 PM [facility] Document Id: [id number] documented in this encounter Miscellaneous Notes Miscellaneous - Nadira Thomas APRN, C.N.P. - 01/25/2017 1:39 PM CDT Ambulatory Patient Summary [address] [id number] Visit Information Name: RUY NEGRETE [facility] Number: [id number] Current Date: 01/25/2017 13:39:21 Physicians Attending Provider: NADIRA THOMAS [facility] Primary Care Provider: LIONEL LUO MD HIGINIOBLAYNERUY has been given the following list of [...] Take Indications/Special Instructions/Comments/Notes for Patient Medication Changes/Routing dextroamphetamine (dextroamphetamine 15 mg oral capsule, extended release) 1 cap, Oral, once a day (in the morning) dextroamphetamine (dextroamphetamine 15 mg oral capsule, extended release) 1 cap, Oral, once a day (in the morning) Routed to Printer dextroamphetamine (dextroamphetamine 15 mg oral capsule, extended release) 1 cap, Oral, once a day (in the morning) Routed to Printer *FLUoxetine (PROzac 40 mg oral capsule) 1 cap, Oral, once a day levonorgestrel-ethinyl estradiol (Lutera 100 mcg-20 mcg oral tablet) 1 Tablet(s), Oral, once a day Routed to [facility] [address] [place] [address] * You have let us know that you are not taking this medication as listed. Please talk with your primary care provider or the health care provider who prescribed the medication as soon as possible. Stop Taking the Following Medications: Medication list as of 01-25-17 13:39 Attention: If you have any medications at home that are not on this list, DO NOT take them until youcontact your provider for clarification. Give a copy of your medication list to your primary care provider. Update your medication list any time medications or doses are changed and carry your medication list at all times in case of emergency. Electronically Signed By: NADIRA THOMAS CNP Signed On:25-JAN-2017 13:39:18 Your Allergies & Intolerances Substance Reaction Symptoms Category Comments Dairy Digest Food Glutens Food Your Problem [...] if you dont have one. Go to [email or web address] and click on Create Your Account. Then, follow the directions to complete the online form. Youll be asked for your [facility] number which you can find at the top of this document. Your Goals/Additional instructions: Source: [facility] POWERCHART Document Id: [id number] Miscellaneous - Nadira Thomas APRN, C.N.P. - 01/25/2017 1:39 PM CDT Ambulatory Discharge Medication List [place] [address] [address] [place], [place] [id number] Visit Information Name: RUY NEGRETE [facility] Number: [id number] Current Date: 01/25/2017 13:39:21 Attending Provider: NADIRA THOMAS CNP Primary Care Provider: LIONEL LUO MD PENELOPE RUY ARANA has been given the following list of medications: Your Medications It is important to take your medications as directed. Use a pill box or chart to help remind you to take your medications. Please let your doctor or nurse know if you have problems taking your medications. Medication/Strength How to Take Indications/Special Instructions/Comments/Notes for Patient Medication Changes/Routing dextroamphetamine (dextroamphetamine 15 mg oral capsule, extended release) 1 cap, Oral, once a day (in the morning) dextroamphetamine (dextroamphetamine 15 mg oral capsule, extended release) 1 cap, Oral, once a day (in the morning) Routed to Printer dextroamphetamine (dextroamphetamine 15 mg oral capsule, extended release) 1 cap, Oral, once a day (in the morning) Routed to Printer *FLUoxetine (PROzac 40 mg oral capsule) 1 cap, Oral, once a day levonorgestrel-ethinyl estradiol (Lutera 100 mcg-20 mcg oral tablet) 1 Tablet(s), Oral, once a day Routed to [address] [id number] * You have let us know that you are not taking this medication as listed. Please talk with your primary care provider or the health care provider who prescribed the medication as soon as possible. Stop Taking the Following Medications: Medication list as of 01-25-17 13:39 Attention: If you have any medications at home that are not on this list, DO NOT take them until youcontact your provider for clarification. Give a copy of your medication list to your primary care provider. Update your medication list any time medications or doses are changed and carry your medication list at all times in case of emergency. Electronically Signed By: NADIRA THOMAS [facility] Signed On:25-JAN-2017 13:39:18 Additional Information: Source: [facility] POWERCHART Document Id: [id number] Miscellaneous - Radha Graham L.PChenN. 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 Intake/History Entered On: 01/25/2017 13:12 CDT Performed On: 01/25/2017 13:08 CDT by RADHA GRAHAM LPN Intake Chief Complaint : needs refills on control and ADHD med Temperature Core : 36.5 DegC(Converted to: 97.7 DegF) Peripheral Pulse Rate : 96 /min (HI) Systolic Blood Pressure : 116 mmHg Diastolic Blood Pressure : 62 mmHg NIBP Mean : 80 mmHg BP Location : Left upper extremity Blood Pressure Cuff Size : Large SpO2 : 97 % Oxygen Therapy : Room air Height : 174 cm(Converted to: 5 ft 9 inch(es), 69 inch(es)) Actual Weight : 86.4 kg(Converted to: 190 lb 8 oz) Dosing Weight Clinic : 86.4 kg Clinic BSA : 2.04 Body Mass Index : 28.54 kg/m2 RADHA GRAHAM LPN - 01/25/2017 13:08 CDT General Info Present in Room During Exam/Procedure : Mother Languages : [place] Is Patient Female and 13-50 no hysterectomy : Yes Status : Patient denies Are you ? : No RADHA GRAHAM LPN - 01/25/2017 13:08 CDT Subjective Pain Symptoms : Yes RADHA GRAHAM LPN - 01/25/2017 13:08 CDT Pain Scale Pain Scale Verbal 0-10 : Open RADHA GRAHAM LPN - 01/25/2017 13:08 CDT Pain Pain Assessment Grid Pain 1 Location : Other: lower lip/teeth RADHA GRAHAM LPN - 01/25/2017 13:08 CDT Dependent Habits Exposure to Tobacco Smoke : Care provider denies smoking in home, Other: non-smoker Smoking Status : Never smoker Tobacco 2A : No Tobacco Use/Currently Using : No Tobacco Use/Last 30 Days : No Tobacco Use/Last 12 months : No RADHA GRAHAM LPN - 01/25/2017 13:08 CDT Caffeine Use Grid Caffeine Use : Current Type : Soft drinks Frequency : Occasionally Amount : very rare RADHA GRAHAM LPN - 01/25/2017 13:08 CDT [facility] Document Id: [id number] documented in this encounter Plan of Treatment Not on filedocumented as of this encounter Visit Diagnoses Not on filedocumented in this encounter Care Teams Product Accountant Relationship Specialty Start Date End Date Lionel Luo M.D. PCP - General 01/12/[address] [place] [phone] documented as of this encounter
--- OUTSIDE RECORDS SUMMARY | 2022-03-28 15:50 | XMS_ITS | Encounter Summary ---
:1999 Author Organization [facility] Address [address] [place] [address] Care Team Providers Name Role Phone Lionel Luo M.D. Primary Care Provider [phone] Encounter Details Date Type Department Care Team Description 09/18/2018 Hospital Encounter Department of Radiology, Blayne Moore, [facility], in CERTIFIED DENTAL ASSISTANT, C.N. P., R.N. [facility] [address], [place] [address] [place], [place] [phone] Social History Tobacco Use Types Packs/Day Years [...] 07/21/2021 relatives? How often do you attend faith or anabaptism services? Never 07/21/2021 Do you belong to any clubs or organizations such as No 07/21/2021 faith groups, unions, fraternal or athletic groups, or [...] place to sleep or slept in a correction (including now)? 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 FLUoxetine (PROzac) 20 mg Take 3 capsules by 0 01/21/2019 capsule mouth daily. levonorgestrel-ethinyl Take 1 tablet by 84 tablet 3 018 05/28/2019 estrad mouth daily. (AVIANE,ALEJARADE,LESSINA) 0.1-20 mg-mcg per tabletIndications: Management Contraception Prescription documented as of this encounter Plan of Treatment Not on filedocumented as of this encounter Procedures Procedure Name Priority Date/Time Associated Comments Diagnosis DX SHOULDER RIGHT RAD - Routine 09/18/2018 11:57 Pain Shoulder Resu lts for this 2+ VIEWS (most inpatients AM BIOLOGICAL TECHNICAL OFFICER Right procedure a re in and all the results outpatients) section. documented in this encounter Results DX Humerus Right 2 Views (09/18/2018 11:58 AM BIOLOGICAL TECHNICAL OFFICER) Anatomical Region Laterality Modality Upper Extremity, Humerus, Musculoskeletal RST LOS, Right Computed Radiography Musculoskeletal ARZ LOS, Muskuloskeletal FLA LOS Specimen (Source) Anatomical Collection Method Collection Time Re ceived Time Location / / Volume Laterality 09/18/2018 1:05 PM BIOLOGICAL TECHNICAL OFFICER Impressions 09/18/2018 1:11 PM BIOLOGICAL TECHNICAL OFFICER IMPRESSION: No identified fracture/dislocation or acute osseous abnormality of the shoulder or right humerus. Narrative 09/18/2018 1:11 PM BIOLOGICAL TECHNICAL OFFICER EXAM: DX SHOULDER RIGHT 2+ VIEWS, DX HUMERUS RIGHT 2 VIEWS COMPARISON: None FINDINGS: There is normal orientation of the humerus with the osseous glenoid. No fracture/dislocation. AC joint intact . There is a lucency is the scapula medial to the osseous glenoid which favors a nutrient foramen. No displaced fracture or cortical disruption appreciated. If there is persisting clinical concern CT imaging could be obtained. Age-appropriate osseous mineralization. Visualized ribs and right lateral hemith orax demonstrate no acute abnormality. Dedicated humeral imaging demonstrates n o displaced fracture or acute osseous abnormality. Normal radiographic appeara nce of regional soft tissues. Procedure Note Flaco Burr M.D. - 09/18/2018Forma tting of this note might be different from the original. EXAM: DX SHOULDER RIGHT 2+ VIEWS, DX HUM ERUS RIGHT 2 VIEWS COMPARISON: None FINDINGS: There is normal orientation of the humerus with the osseous glenoid. No fracture/dislocation. AC joint intact . There is a lucency is the scapula medial to the osseous glenoid which favors a nutrient foramen. No displaced fracture or cortical disruption appreciated. If there is persisting clinical concern CT imaging could be obtained. Age-appropriate osseous mineralization. Visualized ribs and right lateral hemith orax demonstrate no acute abnormality. Dedicated humeral imaging demonstrates n o displaced fracture or acute osseous abnormality. Normal radiographic appeara nce of regional soft tissues. IMPRESSION: No identified fracture/dislo cation or acute osseous abnormality of the shoulder or right humerus. Dana Moore APRN, C.N.P., R.N. [facility] DI[facility]NO[facility]IC IMAGI NG PROCEDURES DX Shoulder Right 2+ Views (09/18/2018 11:57 AM BIOLOGICAL TECHNICAL OFFICER) Anatomical Region Laterality Modality Upper Extremity, Shoulder, Musculoskeletal RST LOS, Right Computed Radiography Musculoskeletal ARZ LOS, Muskuloskeletal FLA LOS Specimen (Source) Anatomical Collection Method Collection Time Re ceived Time Location / / Volume Laterality 09/18/2018 1:05 PM BIOLOGICAL TECHNICAL OFFICER Impressions 09/18/2018 1:11 PM BIOLOGICAL TECHNICAL OFFICER IMPRESSION: No identified fracture/dislocation or acute osseous abnormality of the shoulder or right humerus. Narrative 09/18/2018 1:11 PM BIOLOGICAL TECHNICAL OFFICER EXAM: DX SHOULDER RIGHT 2+ VIEWS, DX HUMERUS RIGHT 2 VIEWS COMPARISON: None FINDINGS: There is normal orientation of the humerus with the osseous glenoid. No fracture/dislocation. AC joint intact . There is a lucency is the scapula medial to the osseous glenoid which favors a nutrient foramen. No displaced fracture or cortical disruption appreciated. If there is persisting clinical concern CT imaging could be obtained. Age-appropriate osseous mineralization. Visualized ribs and right lateral hemith orax demonstrate no acute abnormality. Dedicated humeral imaging demonstrates n o displaced fracture or acute osseous abnormality. Normal radiographic appeara nce of regional soft tissues. Procedure Note Flaco Burr M.D. - 09/18/2018Forma tting of this note might be different from the original. EXAM: DX SHOULDER RIGHT 2+ VIEWS, DX HUM ERUS RIGHT 2 VIEWS COMPARISON: None FINDINGS: There is normal orientation of the humerus with the osseous glenoid. No fracture/dislocation. AC joint intact . There is a lucency is the scapula medial to the osseous glenoid which favors a nutrient foramen. No displaced fracture or cortical disruption appreciated. If there is persisting clinical concern CT imaging could be obtained. Age-appropriate osseous mineralization. Visualized ribs and right lateral hemith orax demonstrate no acute abnormality. Dedicated humeral imaging demonstrates n o displaced fracture or acute osseous abnormality. Normal radiographic appeara nce of regional soft tissues. IMPRESSION: No identified fracture/dislo cation or acute osseous abnormality of the shoulder or right humerus. Aneesh Lemos APRN.N.Trevon., R.N. IMG DIAGNOSTIC IMAGI NG PROCEDURES documented in this encounter Visit Diagnoses Not on filedocumented in this encounter Care Teams Curtains And Draperies Salesperson Relationship Specialty Start Date End Date Lionel Luo M.D. PCP - General 01/12/[address] [place] [phone] documented as of this encounter
--- OUTSIDE RECORDS SUMMARY | 2022-03-28 15:50 | XMS_ITS | Encounter Summary ---
:1999 Author Organization [facility] Address [address] [place] [address] Care Team Providers Name Role Phone Unavailable Primary Care Provider Unavailable Encounter Details Date Type Department Care Team Description 08/16/2015 Hospital Encounter HX [facility] Jesica Mehta i, CARGO VESSEL STEWARDESS, C.N.P., R. N. [address] [facility], [facility] [address] [place], [place] [address] (Wo rk) Social History Tobacco Use Types [...] 07/21/2021 relatives? How often do you attend voodoo or protestant services? Never 07/21/2021 Do you belong to any clubs or organizations such as No 07/21/2021 voodoo groups, unions, fraternal or athletic groups, or [...] at Date Recorded Female 07/21/2021 2:31 PM JUVENILE COUNSELOR documented as of this encounter Last Filed Vital Signs Vital Sign Reading Time Taken Comments Blood Pressure - - Pulse - - Temperature - - Respiratory Rate - - Oxygen Saturation - - Inhaled Oxygen Concentration - - Weight 90 kg (198 lb 6.6 oz) 08/16/2015 3:48 PM JUVENILE COUNSELOR Height 172.7 cm (5' 8) 08/16/2015 3:48 PM JUVENILE COUNSELOR Body Mass Index 30.17 08/16/2015 3:48 PM JUVENILE COUNSELOR Body Mass Index Percentile 96.01 % 08/16/2015 3:48 PM CS T Growth Chart: [facility] (Girls, 2-20 Years) documented in this encounter Medications at Time of Discharge Medication Sig Dispensed Refills Start Date End Date cetirizine (ZyrTEC) 10 mg Take 1 tablet by 0 07/17 tablet mouth daily. documented as of this encounter Progress Notes Kody Moore APRN, C.N.P. - 08/16/2015 3:42 PM CST [id number] CHIEF COMPLAINT/REASON FOR VISIT Recheck wound. HISTORY OF PRESENT ILLNESS Ruy is a 15-year-old female, who presents today for a wound check. She was last here on August 13 and the packing was left out. Mother reports that she had some drainage over the weekend, but minimal. No fever. She will finish her Bactrim tomorrow morning. She has not used pain medications in the last 2 days. MEDICATIONS Dexedrine Spansule 15 mg extended release daily. Lutera daily. Zyrtec 10 mg daily. Bactrim DS twice daily for 10 days. Started on 08/07/2015. ALLERGIES No known allergies. SYSTEMS REVIEW Per HPI. All others systems negative at this time. VITAL SIGNS Temperature 36.7 degrees Celsius, heart rate 80, blood pressure 110/76, oxygen saturation 99% on room air, height 172.72 cm, weight 90 kg, BMI 30.17. PHYSICAL EXAMINATION GENERAL: Ruy is alert and oriented, in no acute distress. SKIN: Warm and dry. Wound has closed. Edges are approximated and surrounded by pink granulation tissue. No fluctuance noted about the site. Nontender. Unable to express any exudate. MUSCULOSKELETAL: Normal gait and station. Normal posture. IMPRESSION/REPORT/PLAN Healed buttock wound, possible pilonidal cyst. Advised patient to continue her Bactrim to completion. The site was left open to air. Advised to continue to monitor the site for worsening symptoms and follow up should they occur. Recommended no baths, hot tubs or pools for the next week to allow the wound to fully close. Taking a shower with leaving the site uncovered is fine. All questions of patientand mother answered. Both stated understanding and agreement with current plan. Kody Moore APRN, C.N.P./pos Electronically Signed By: KODY MOORE AUTOMATIC PROFILE SANDER OPERATOR On: 08/20/2015 04:35 PM Source: [facility] MHSDOLBEYNONRADSYS Document Id: [id number] NILE COUNSELOR documented in this encounter Miscellaneous Notes Miscellaneous - Kody Moore APRN, C.N.P. - 08/16/2015 4:16 PM CST Ambulatory Patient Summary [address] [id number] Visit Information Name: RUY NEGRETE [facility] Number: [id number] Current Date: 08/16/2015 16:16:30 Physicians Attending Provider: KODY MOORE NP Primary Care Provider: MELANIA BENITEZ MD RUY NEGRETE has been given the following list [...] Oral, once a day (in the morning) levonorgestrel-ethinyl estradiol (Lutera 100 mcg-20 mcg oral tablet) 1 Tablet(s), Oral, once a day For further refills, please follow up with PCP Stop Taking the Following Medications: Medication list as of 08-16-15 16:16 Attention: If you have any medications at home that are not on this list, DO NOT take them until youcontact your provider for clarification. Give a copy of your medication list to your primary care provider. Update your medication list any time medications or doses are changed and carry your medication list at all times in case of emergency. Electronically Signed By: KODY MOORE AUTOMATIC PROFILE SANDER OPERATOR Signed On:16-AUG-2015 16:16:25 Your Allergies & Intolerances Substance Reaction Symptoms [...] you dont have one. Go to [email or web address] and click on Create Your Account. Then, follow the directions to complete the online form. Youll be asked for your [facility] number which you can find at the top of this document. Your Goals/Additional instructions: Source: [facility] POWERCHART Document Id: [id number] NILE COUNSELOR Miscellaneous - Kody Moore APRN, C.N.P. - 08/16/2015 4:16 PM CST Ambulatory Discharge Medication List [address] [id number] Visit Information Name: RUY NEGRETE [facility] Number: [id number] Visit Date: 08/16/2015 16:16:29 Attending Provider: KODY MOORE NP Primary Care Provider: MELANIA BENITEZ MD RUY NEGRETE has been given the following list [...] Oral, once a day (in the morning) levonorgestrel-ethinyl estradiol (Lutera 100 mcg-20 mcg oral tablet) 1 Tablet(s), Oral, once a day For further refills, please follow up with PCP Stop Taking the Following Medications: Medication list as of 08-16-15 16:16 Attention: If you have any medications at home that are not on this list, DO NOT take them until youcontact your provider for clarification. Give a copy of your medication list to your primary care provider. Update your medication list any time medications or doses are changed and carry your medication list at all times in case of emergency. Electronically Signed By: KODY MOORE AUTOMATIC PROFILE SANDER OPERATOR Signed On:16-AUG-2015 16:16:25 Additional Information: Source: [facility] POWERCHART Document Id: [id number] NILE COUNSELOR Miscellaneous - Bernadette Mills, C.M.A. - 08/16/2015 3:48 PM CST Pediatric Audio/Video Technician Intake/History Pediatric Audio/Video Technician Intake/History Entered On: 08/16/2015 15:50 JUVENILE COUNSELOR Performed On: 08/16/2015 15:48 JUVENILE COUNSELOR by BERNADETTE MILLS CRAPS MANAGER Intake Chief Complaint : Patient presents for a wound check. Temperature Core : 36.7 DegC(Converted to: 98.1 DegF) Peripheral Pulse Rate : 80 /min Systolic Blood Pressure : 110 mmHg Diastolic Blood Pressure : 76 mmHg NIBP Mean : 87 mmHg BP Location : Right upper extremity Blood Pressure Cuff Size : Regular SpO2 : 99 % Oxygen Therapy : Room air Height : 172.72 cm(Converted to: 5 ft 8 inch(es), 68 inch(es)) Actual Weight : 90.0 kg(Converted to: 198 lb 7 oz) Weight Source : Standing scale Dosing Weight Clinic : 90 kg Clinic BSA : 2.08 Body Mass Index : 30.17 kg/m2 BERNADETTE MILLS [facility] - 08/16/2015 15:48 JUVENILE COUNSELOR General Info Accompanied By : Mother Information Given By : Patient, Mother Preferred Communication Mode : Verbal Languages : [place] Is Patient Female and 13-50 no hysterectomy : Yes Status : Patient denies Are you ? : No BERNADETTE MILLS [facility] - 08/16/2015 15:48 JUVENILE COUNSELOR Subjective Pain Symptoms : No BERNADETTE MILLS [facility] - 08/16/2015 15:48 JUVENILE COUNSELOR Dependent Habits Exposure to Tobacco Smoke : Care provider denies smoking in home, Other: non-smoker Smoking Status : Unknown if ever smoke Tobacco 2A : Unknown Tobacco Use/Currently Using : No Tobacco Use/Last 30 Days : No Tobacco Use/Last 12 months : No BERNADETTE MILLS [facility] - 08/16/2015 15:48 JUVENILE COUNSELOR Caffeine Use Grid Amount : very rare BERNADETTE MILLS [facility] - 08/16/2015 15:48 JUVENILE COUNSELOR Source: [facility] POWERCHART Document Id: [id number] JUVENILE COUNSELOR!38 NILE COUNSELOR documented in this encounter Plan of Treatment Not on filedocumented as of this encounter Visit Diagnoses Not on filedocumented in this encounter
--- OUTSIDE RECORDS SUMMARY | 2022-03-28 15:50 | XMS_ITS | Encounter Summary ---
:1999 Author Organization [facility] Address [address] [place] [address] Care Team Providers Name Role Phone Lionel Luo M.D. Primary Care Provider [phone] Encounter Details Date Type Department Care Team Description 09/18/2018 Hospital Encounter Department of Radiology, Blayne Moore, [facility], in DIRECTOR OF CATERING, C.N. P., R.N. [facility] [address], [place] [address] [place], [place] [phone] Social History Tobacco Use Types Packs/Day Years [...] How often do you attend baptism or tenriism services? Never 07/21/2021 Do you belong to [...] or slept in a longterm (including now)? 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 FLUoxetine (PROzac) 20 mg Take 3 capsules by 0 01/21/2019 capsule mouth daily. levonorgestrel-ethinyl Take 1 tablet by 84 tablet 3 018 05/28/2019 estrad mouth daily. (DUYENE,ALEJARADE,LESSINA) 0.1-20 mg-mcg per tabletIndications: Management Contraception Prescription documented as of this encounter Plan of Treatment Not on filedocumented as of this encounter Procedures Procedure Name Priority Date/Time Associated Comments Diagnosis DX HUMERUS RIGHT RAD - Routine 09/18/2018 11:58 Pain Shoulder Resul ts for this 2 VIEWS (most inpatients AM FORMING OPERATOR Right procedure a re in and all the results outpatients) section. documented in this encounter Results DX Humerus Right 2 Views (09/18/2018 11:58 AM FORMING OPERATOR) Anatomical Region Laterality Modality Upper Extremity, Humerus, Musculoskeletal RST LOS, Right Computed Radiography Musculoskeletal ARZ LOS, Muskuloskeletal FLA LOS Specimen (Source) Anatomical Collection Method Collection Time Re ceived Time Location / / Volume Laterality 09/18/2018 1:05 PM FORMING OPERATOR Impressions 09/18/2018 1:11 PM FORMING OPERATOR IMPRESSION: No identified fracture/dislocation or acute osseous abnormality of the shoulder or right humerus. Narrative 09/18/2018 1:11 PM FORMING OPERATOR EXAM: DX SHOULDER RIGHT 2+ VIEWS, DX [...] right humerus. Dana Moore APRN, C.N.P., R.N. [facility] DIAGNOSTIC IMAGI NG PROCEDURES DX Shoulder Right 2+ Views (09/18/2018 11:57 AM FORMING OPERATOR) Anatomical Region Laterality Modality Upper Extremity, Shoulder, Musculoskeletal RST LOS, Right Computed Radiography Musculoskeletal ARZ LOS, Muskuloskeletal FLA LOS Specimen (Source) Anatomical Collection Method Collection Time Re ceived Time Location / / Volume Laterality 09/18/2018 1:05 PM FORMING OPERATOR Impressions 09/18/2018 1:11 PM FORMING OPERATOR IMPRESSION: No identified fracture/dislocation or acute osseous abnormality of the shoulder or right humerus. Narrative 09/18/2018 1:11 PM FORMING OPERATOR EXAM: DX SHOULDER RIGHT 2+ VIEWS, DX [...] right humerus. Dana Moore APRN, C.N.P., R.N. [facility]G DIAGNOSTIC IMAGI NG PROCEDURES documented in this encounter Visit Diagnoses Not on filedocumented in this encounter Care Teams Audit Tech Relationship Specialty Start Date End Date Lionel Luo M.D. PCP - General 01/12/[address] [place] [phone] documented as of this encounter
--- OUTSIDE RECORDS SUMMARY | 2022-03-28 15:50 | XMS_ITS | Encounter Summary ---
:1999 Author Organization [facility] Address [address] [place] [address] Care Team Providers Name Role Phone Lionel Luo M.D. Primary Care Provider [phone] Reason for Referral Outpatient (Routine) - Closed Specialty Diagnoses / Procedures Referred By Contact Refer red To Contact Diagnoses Attention Deficit Hyperactive Disorder Alyssa Thomas APRN, C.N.P. [address] [place] [phone] Referral ID Status Reason Start Date Expiration Date Visits Requ ested Visits Authorized [id number] Closed 04/27/2017 10/24/2017 1 1 Encounter Details Date Type Department Care Team Description 04/27/2017 Orders Only Department of [facility] in [place], BARBER, C. N.P. Hyperactive Disorder [place] [address] [place] [address] [place] [phone] Social History Tobacco Use Types Packs/Day Years [...] How often do you attend episcopalian or evangelical services? 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 PCP - General 01/12/[address] [place] [phone] documented as of this encounter
--- OUTSIDE RECORDS SUMMARY | 2022-03-28 15:50 | XMS_ITS | Encounter Summary ---
:1999 Author Organization [facility] Address [address] [place] [address] Care Team Providers Name Role Phone Unavailable Primary Care Provider Unavailable Encounter Details Date Type Department Care Team Description 10/17/2016 Hospital Encounter HX NO MAPPING Social History Tobacco Use Types Packs/Day Years [...] or slept in a fdc (including now)? 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 FLUoxetine (PROzac) 20 Take 3 capsules by 0 10/1701/21/2019 mg capsule mouth daily. FLUoxetine (PROzac) 40 Take 1 capsule by 0 201507/02/2017 mg capsule mouth daily. documented as of this encounter Plan of Treatment Not on filedocumented as of this encounter Visit Diagnoses Not on filedocumented in this encounter
--- OUTSIDE RECORDS SUMMARY | 2022-03-28 15:50 | XMS_ITS | Encounter Summary ---
:1999 Author Organization [facility] Address [address] [place] [address] Care Team Providers Name Role Phone Unavailable Primary Care Provider Unavailable Encounter Details Date Type Department Care Team Description 08/11/2015 Hospital Encounter HX [facility] Jesica Mehta i, PHOTOGRAPHIC LABORATORY SUPERVISOR, C.N.P., [address] [facility], [facility] [address] [place], [place] [address] (Wo rk) Social History Tobacco [...] 07/21/2021 relatives? How often do you attend sabianist or confucianist services? Never 07/21/2021 Do you belong to any clubs or organizations such as No 07/21/2021 sabianist groups, unions, fraternal or athletic groups, or [...] to sleep or slept in a senior care (including now)? Sex Assigned at Date Recorded Female 07/21/2021 2:31 PM CONSERVATION WORKER documented as of this encounter Last Filed Vital Signs Vital Sign Reading Time Taken Comments Blood Pressure - - Pulse - - Temperature - - Respiratory Rate - - Oxygen Saturation - - Inhaled Oxygen Concentration - - Weight 90 kg (198 lb 6.6 oz) 08/11/2015 9:13 AM CONSERVATION WORKER Height 172.7 cm (5' 8) 08/11/2015 9:13 AM CONSERVATION WORKER Body Mass Index 30.17 08/11/2015 9:13 AM CONSERVATION WORKER Body Mass Index Percentile 96.02 % 08/11/2015 9:13 AM CS T Growth Chart: [facility] (Girls, 2-20 Years) documented in this encounter Medications at Time of Discharge Medication Sig Dispensed Refills Start Date End Date cetirizine (ZyrTEC) 10 mg Take 1 tablet by 0 07/17 tablet mouth daily. documented as of this encounter Progress Notes Kody Moore APRN, C.N.P. - 08/11/2015 9:08 AM CST [id number] CHIEF COMPLAINT/REASON FOR VISIT Wound follow up. HISTORY OF PRESENT ILLNESS Ruy is a 15-year-old female, brought in by her mother today for followup of the wound that was incised and drained on August 09, 2015. She is here to have packing removed and replaced. Her pain is still fairly well controlled. No fever. MEDICATIONS Dexedrine Spansules 15 mg daily. Lutera one daily. Zyrtec 10 mg daily. Asbury 5/325 mg tablet 1/2 to 1 every 6 hours as needed for pain control. Ibuprofen 800 mg 3 times a day as needed for pain. Bactrim DS 1 by mouth twice a day x 10 days started on 08/07/2015. ALLERGIES No known allergies. SYSTEMS REVIEW Review of systems per HPI. All others systems negative at this time. VITAL SIGNS Temperature 36.4 degrees Celsius, heart rate 104, blood pressure 128/86, oxygen saturation 97% on room air. Height 172.72 cm weight 90 kg, BMI 30.17. PHYSICAL EXAMINATION GENERAL: Ruy is alert and oriented. In no acute distress. SKIN: Warm and dry. The buttock abscess site is healing well. The site of incision edges are approximated clean, dry, and intact. The ulceration remains open with a depth of approximately 1 cm. Minimalsanguinous purulent drainage present on the packing when removed. Otherwise no excess drainage expressed. The redness has resolved. There is still some firmness to palpation of the left of the ulceration. No fluctuance. Minimal to no tenderness. MUSCULOSKELETAL: Normal gait, normal posture. IMPRESSION/REPORT/PLAN The old packing was removed and repacked with quarter-inch iodoform gauze. Patient tolerated procedure well with mother's support periods. She premedicated with 1/2 Asbury prior to this visit today. Thesite was then covered with 2 x 2 gauze and ABDs secured in place. Patient is to continue her antibiotics and pain medication as needed. I would like to see her tomorrow for a re-evaluation of the woundand packing change. All questions of patient and mother answered. Both stated understanding and agreement with current plan. Kody Moore APRN, C.N.P./pos Electronically Signed By: KODY MOORE JAVA WEB ENGINEER On: 08/20/2015 04:35 PM Source: [facility] MHSDOLBEYNONRADSYS Document Id: [id number] ERVATION WORKER documented in this encounter Miscellaneous Notes Miscellaneous - Kody Moore APRN, C.N.P. - 08/15/2015 3:21 PM CST Ambulatory Patient Summary [address] [id number] Visit Information Name: RUY NEGRETE [facility] Number: [id number] Current Date: 08/15/2015 15:21:51 Physicians Attending Provider: KODY MOORE NP Primary [...] you have problems taking your medications. Medication/Strength Dose Route Frequency Indications/Special Instructions/Comments/Notes cetirizine (ZyrTEC 10 mg oral tablet) 10 mg Oral once a day dextroamphetamine (Dexedrine Spansule 5 mg oral capsule, extended release) 15 mg Oral once a day (inthe morning) levonorgestrel-ethinyl estradiol (Lutera 100 mcg-20 mcg oral tablet) 1 tab(s) Oral once a day For further refills, please follow up with PCP Attention: If you have any medications at [...] of emergency. Electronically Signed By: KODY MOORE JAVA WEB ENGINEER Signed On:15-AUG-2015 15:21:46 Your Allergies & Intolerances Substance Reaction Symptoms Category Comments No Known Allergies Drug Your Problem List Problem Status Onset Comments Disorder Attention Deficit Hyperactive (ADHD) Active Disorder Autism Spectrum Active Anxiety NOS Active Your Upcoming Appointments Date Time Location Provider 08/16/2015 15:45 MARK Moore NP, Kody Barajas Attention: Contact your local Clinic if further [...] if you dont have one. Go to [email or web address] and click on Create Your Account. Then, follow the directions to complete the online form. Youll be asked for your [facility] number which you can find at the top of this document. Your Goals/Additional instructions: Source: [facility] POWERCHART Document Id: [id number] ERVATION WORKER Miscellaneous - Kody Moore APRN, C.N.P. - 08/15/2015 3:21 PM CST Ambulatory Discharge Medication List [address] [id number] Visit Information Name: NERUY SURESH [facility] Number: [id number] Visit Date: 08/15/2015 15:21:50 Attending Provider: KODY MOORE NP Primary Care Provider: MELANIA BENITEZ MD RUY NEGRETE has been given the following list of medications: Your Medications It is important to take your medications as directed. Use a pill box or chart to help remind you to take your medications. Please let your doctor or nurse know if you have problems taking your medications. Medication/Strength Dose Route Frequency Indications/Special Instructions/Comments/Notes cetirizine (ZyrTEC 10 mg oral tablet) 10 mg Oral once a day dextroamphetamine (Dexedrine Spansule 5 mg oral capsule, extended release) 15 mg Oral once a day (inthe morning) levonorgestrel-ethinyl estradiol (Lutera 100 mcg-20 mcg oral tablet) 1 tab(s) Oral once a day For further refills, please follow up with PCP Attention: If you have any medications at [...] of emergency. Electronically Signed By: KODY MOORE JAVA WEB ENGINEER Signed On:15-AUG-2015 15:21:46 Additional Information: Source: [facility] POWERCHART Document Id: [id number] ERVATION WORKER Miscellaneous - Bernadette Mills, C.M.A. - 08/11/2015 9:13 AM CST Pediatric Gun Stocker Intake/History Pediatric Gun Stocker Intake/History Entered On: 08/11/2015 9:17 CONSERVATION WORKER Performed On: 08/11/2015 9:13 CONSERVATION WORKER by BERNADETTE MILLS RN PEDIATRIC Intake Chief Complaint : Patient presents for a follow up visit Temperature Core : 36.4 DegC(Converted to: 97.5 DegF) (LOW) Peripheral Pulse Rate : 104 /min (HI) Systolic Blood Pressure : 128 mmHg Diastolic Blood Pressure : 86 mmHg NIBP Mean : 100 mmHg BP Location : Right upper extremity Blood Pressure Cuff Size : Regular SpO2 : 97 % Oxygen Therapy : Room air Height : 172.72 cm(Converted to: 5 ft 8 inch(es), 68 inch(es)) Actual Weight : 90.0 kg(Converted to: 198 lb 7 oz) Weight Source : Standing scale Dosing Weight Clinic : 90 kg Clinic BSA : 2.08 Body Mass Index : 30.17 kg/m2 BERNADETTE MILLS [facility] - 08/11/2015 9:13 CONSERVATION WORKER General Info Accompanied By : Mother Information Given By : Patient, Mother Languages : Syriac Is Patient Female and 13-50 no hysterectomy : Yes Status : Patient denies Are you ? : No BERNADETTE MILLS [facility] - 08/11/2015 9:13 CONSERVATION WORKER Subjective Pain Symptoms : No BERNADETTE MILLS [facility] 08/11/2015 9:13 CONSERVATION WORKER Dependent Habits Exposure to Tobacco Smoke : Care provider denies smoking in home Smoking Status : Never smoker Tobacco 2A : No Tobacco Use/Currently Using : No Tobacco Use/Last 30 Days : No Tobacco Use/Last 12 months : No BERNADETTE MILLS [facility] - 08/11/2015 9:13 CONSERVATION WORKER Caffeine Use Grid Amount : very rare [facility] 08/11/2015 9:13 CONSERVATION WORKER Source: [facility] POWERCHART Document Id: [id number] CONSERVATION WORKER!37 ERVATION WORKER documented in this encounter Plan of Treatment Not on filedocumented as of this encounter Visit Diagnoses Not on filedocumented in this encounter
--- OUTSIDE RECORDS SUMMARY | 2022-03-28 15:50 | XMS_ITS | Encounter Summary ---
:1999 Author Organization [facility] Address [address] [place] [address] Care Team Providers Name Role Phone Lionel Luo M.D. Primary Care Provider [phone] Reason for Visit Reason Onset Date Comments Med Refill 06/27/2018 Encounter Details Date Type Department Care Team Description 06/27/2018 Clinical Communication Department of Sa ra Kirsty Leal, Med Refill Medicine in [facility], [facility] [address] [place] [phone] Social History Tobacco Use Types Packs/Day Years [...] 07/21/2021 relatives? How often do you attend hinduism or restorationist services? Never 07/21/2021 Do you belong to any clubs or organizations such as No 07/21/2021 hinduism groups, unions, fraternal or athletic groups, or [...] or slept in a fpc (including now)? Sex Assigned at Date Recorded Female 07/21/2021 2:31 PM MANAGER BANK documented as of this encounter Miscellaneous Notes Telephone Encounter - Shu Devi RAnjel. - 06/27/2018 3:37 PM CST Spoke with patient. She has appointment scheduled with Alyssa Thomas on 07/02. Will have enough to carry her over until the appointment. No further questions. GER BANK Telephone Encounter - Maria E Garcia S - 06/27/2018 3:12 PM CST Please do not reply to sender,emails are not monitored. Thank you. If you need a prescription refill please call your pharmacy. Please allow 3 business days for processing. Expert RN: N/A (Med Refill Only) Call Center Template: ??? May we leave a message for you on this phone? yes What can I help you with today? Please call pt to let her know that the RX has been sent to the pharmacy. Thanks. ??? If Medication Refill: o What is the name and strength of the medication? control pills o What do you use the medication for? o How many pills do you have left? o What pharmacy do you use (include location)? [facility] in [place] I will send this information to the appropriate staff member who will look into your concern. Is there anything else I can help you with today? Thank you for calling [facility]. GER BANK documented in this encounter Plan of Treatment Not on filedocumented as of this encounter Visit Diagnoses Not on filedocumented in this encounter Care Teams Projector Operator Relationship Specialty Start Date End Date Lionel Luo M.D. PCP - General 01/12/[address] [place] [phone] documented as of this encounter
--- OUTSIDE RECORDS SUMMARY | 2022-03-28 15:50 | XMS_ITS | Encounter Summary ---
:1999 Author Organization [facility] Address [address] [place] [address] Care Team Providers Name Role Phone Unavailable Primary Care Provider Unavailable Encounter Details Date Type Department Care Team Description 10/17/2016 - 10/20/2016 Hospital Encounter HX RST NOELLE 2B Social History Tobacco Use Types Packs/Day Years [...] 07/21/2021 relatives? How often do you attend yarsanism or mandaen services? Never 07/21/2021 Do you belong to any clubs or organizations such as No 07/21/2021 yarsanism groups, unions, fraternal or athletic groups, or [...] at Date Recorded Female 07/21/2021 2:31 PM SAMPLE COLLECTOR documented as of this encounter Last Filed Vital Signs Vital Sign Reading Time Taken Comments Blood Pressure - - Pulse - - Temperature - - Respiratory Rate - - Oxygen Saturation - - Inhaled Oxygen - - Concentration Weight 88.5 kg (195 lb 1.7 10/17/2016 7:50 AM Vital sign result oz) CDT from CD. Height 171.7 cm (5' 7.6) 10/17/2016 7:50 AM Vital s ign result CDT from CD. Body Mass Index 30.02 10/17/2016 7:50 AM CDT Body Mass Index Percentile 95.06 % 10/17/2016 7:50 AM CDT Growth Chart: [facility] (Girls, 2-20 Years) documented in this encounter [...] Name Priority Date/Time Associated Diagnosis Comme nts HEMOGLOBIN, B Routine 10/17/2016 12:18 PM Results for this CDT procedure are i n the results section . documented in this encounter Results (ABNORMAL) Hemoglobin (10/17/2016 12:18 PM CDT) athologist Signature Hb 11.7 (L) 12.0 - [facility] 15.5 G/DL [facility] Comment: Drawn in [place] 406 Specimen Anatomical Collection Method Collection Time Receive d Time (Source) Location / / Volume Laterality 10/17/2016 12:18 10/17/2016 PM CDT 12:18 PM CDT Narrative [facility] - 10/17/2016 12:28 PM CDT Drawn in [place] 406 John Bazzi M.D., D.D.S. LAB BLOOD ADD-ON Performing Organization Address City/State/ZIP Code Phon e Number [facility] - [address] [place], [place] [address] [facility] documented in this encounter Visit Diagnoses Not on filedocumented in this encounter
--- OUTSIDE RECORDS SUMMARY | 2022-03-28 15:50 | XMS_ITS | Encounter Summary ---
:1999 Author Organization [facility] Address [address] [place] [address] Care Team Providers Name Role Phone Unavailable Primary Care Provider Unavailable Encounter Details Date Type Department Care Team Description 08/13/2015 Hospital Encounter HX [facility] Jesica Mehta i, PIER RUNNER, C.N.P., R. [address]. [address] [facility], [facility] [address] [place], [place] [address] (Wo rk) Social History Tobacco [...] 07/21/2021 relatives? How often do you attend mandaeism or moravian services? Never 07/21/2021 Do you belong to any clubs or organizations such as No 07/21/2021 mandaeism groups, unions, fraternal or athletic groups, or [...] at Date Recorded Female 07/21/2021 2:31 PM AUTOMOTIVE PRODUCTION WORKER documented as of this encounter Last Filed Vital Signs Vital Sign Reading Time Taken Comments Blood Pressure - - Pulse - - Temperature - - Respiratory Rate - - Oxygen Saturation - - Inhaled Oxygen Concentration - - Weight 90 kg (198 lb 6.6 oz) 08/13/2015 9:33 AM AUTOMOTIVE PRODUCTION WORKER Height - - Body Mass Index 30.17 08/11/2015 9:13 AM AUTOMOTIVE PRODUCTION WORKER Body Mass Index Percentile 96.02 % 08/13/2015 9:33 AM CS T Growth Chart: [facility] (Girls, 2-20 Years) documented in this encounter Medications at Time of Discharge Medication Sig Dispensed Refills Start Date End Date cetirizine (ZyrTEC) 10 mg Take 1 tablet by 0 07/17 tablet mouth daily. documented as of this encounter Progress Notes Kody Moore, BARBER, C.N.P. - 08/13/2015 9:29 AM CST [id number] CHIEF COMPLAINT/REASON FOR VISIT Wound follow up. HISTORY OF PRESENT ILLNESS Ruy is a 15-year-old female, who returns today with her mother for a followup of wound packing. She is without complaints today. She has taken a Holden prior to this visit, and has not been affected too much by it, as she was at school prior to visit and plans to go back. MEDICATIONS Unchanged from previous visit. ALLERGIES No known allergies. VITAL SIGNS Temperature 36.9 degrees Celsius, heart rate 76, blood pressure 118/82, oxygen saturation 98% on room air. Weight 90 kg. PHYSICAL EXAMINATION GENERAL: Ruy is alert and oriented, appropriate. In no acute distress. SKIN: Warm and dry. EVALUATION OF THE GLUTEAL CLEFT WOUND: Revealed slightly more purulent drainage than yesterday, saturating the Iodoform gauze. It does have an odor. Once the gauze removed, I was also able to express some purulence from the site. It was then followed by sanguinous drainage, this was minimal. There remains a more firm area to the left gluteal cleft, but no redness, tenderness, fluctuance or heat. The wound depth remains approximately 1 cm with some tunneling to the superior and inferior aspect. The opening itself was approximately 0.5 cm in diameter. MUSCULOSKELETAL: Normal gait and station. Normal posture. IMPRESSION/REPORT/PLAN Open buttock wound. After last visit, I did consult with Dr. Lopez, who recommended leaving the packing out over the weekend, thus, packing was removed. The site was then dressed with 2 x 2 gauze and covered in ABD pads, secured with tape. I reminded patient that she is absolutely not to take baths. Also keep the site covered once in the shower. Advised to change the dressing on a daily basis, and continue evaluation. Continue the Bactrim to completion. Plan for a followup visit on Sunday to recheckthis site. Certainly follow up sooner if it becomes red and swollen again, or other concerns develop. I am considering a surgical referral for a pilonidal cyst, but will see how she is doing on Sunday. All questions of patient and mother answered; both stated understanding and agreement with plan. Kody Moore APRN, C.N.P./pos Electronically Signed By: KODY MOORE HOST/HOSTESS GROUND On: 08/14/2015 03:37 PM Source: [facility] MHSDOLBEYNONRADSYS Document Id: [id number] MOTIVE PRODUCTION WORKER documented in this encounter Miscellaneous Notes Miscellaneous - Kody Moore APRN, C.N.P. - 08/13/2015 2:47 PM CST Ambulatory Patient Summary [address] [id number] Visit Information Name: RUY NEGRETE [facility] Number: [id number] Current Date: 08/13/2015 14:47:15 Physicians Attending Provider: KODY MOORE NP Primary Care Provider: MELANIA BENITEZ MD HIGINIOBLAYNERUY has been given the following [...] Oral, once a day (in the morning) HYDROcodone-acetaminophen (Holden 5 mg-325 mg oral tablet) 1 Tablet(s), Oral, every 6 hours as neededfor Pain No more than 4,000mg acetaminophen/24hrs levonorgestrel-ethinyl estradiol (Lutera 100 mcg-20 mcg oral tablet) 1 Tablet(s), Oral, once a day For further refills, please follow up with PCP Stop Taking the Following Medications: Medication list as of 08-13-15 14:47 Attention: If you have any medications at [...] of emergency. Electronically Signed By: KODY MOORE NP Signed On:13-AUG-2015 14:47:09 Your Allergies & Intolerances Substance Reaction Symptoms [...] you dont have one. Go to [email or web address] and click on Create Your Account. Then, follow the directions to complete the online form. Youll be asked for your [facility] number which you can find at the top of this document. Your Goals/Additional instructions: Source: [facility] POWERCHART Document Id: [id number] MOTIVE PRODUCTION WORKER Miscellaneous - Kody Moore APRN, C.N.P. - 08/13/2015 2:47 PM CST Ambulatory Discharge Medication List [address] [id number] Visit Information Name: RUY NEGRETE [facility] Number: [id number] Visit Date: 08/13/2015 14:47:14 Attending Provider: KODY MOORE NP Primary Care [...] Oral, once a day (in the morning) HYDROcodone-acetaminophen (Holden 5 mg-325 mg oral tablet) 1 Tablet(s), Oral, every 6 hours as neededfor Pain No more than 4,000mg acetaminophen/24hrs levonorgestrel-ethinyl estradiol (Lutera 100 mcg-20 mcg oral tablet) 1 Tablet(s), Oral, once a day For further refills, please follow up with PCP Stop Taking the Following Medications: Medication list as of 08-13-15 14:47 Attention: If you have any medications at [...] of emergency. Electronically Signed By: KODY MOORE HOST/HOSTESS GROUND Signed On:13-AUG-2015 14:47:09 Additional Information: Source: [facility] POWERCHART Document Id: [id number] MOTIVE PRODUCTION WORKER Miscellaneous - Bernadette Mills C.M.A. - 08/13/2015 9:33 AM CST Pediatric Senior Hardware Design Engineer Intake/History Pediatric Senior Hardware Design Engineer Intake/History Entered On: 08/13/2015 9:35 AUTOMOTIVE PRODUCTION WORKER Performed On: 08/13/2015 9:33 AUTOMOTIVE PRODUCTION WORKER by BERNADETTE MILLS [facility] Intake Chief Complaint : Patient presents for wound care. Temperature Core : 36.9 DegC(Converted to: 98.4 DegF) Peripheral Pulse Rate : 76 /min Systolic Blood Pressure : 118 mmHg Diastolic Blood Pressure : 82 mmHg NIBP Mean : 94 mmHg BP Location : Right upper extremity Blood Pressure Cuff Size : Regular SpO2 : 98 % Oxygen Therapy : Room air Actual Weight : 90.0 kg(Converted to: 198 lb 7 oz) Weight Source : Standing scale Dosing Weight Clinic : 90 kg BERNADETTE MILLS [facility] - 08/13/2015 9:33 AUTOMOTIVE PRODUCTION WORKER General Info Accompanied By : Mother Information Given By : Patient, Mother Languages : Albanian Is Patient Female and 13-50 no hysterectomy : Yes Status : Patient denies Are you ? : No BERNADETTE MILLS [facility] - 08/13/2015 9:33 AUTOMOTIVE PRODUCTION WORKER Subjective Pain Symptoms : No BERNADETTE MILLS [facility] - 08/13/2015 9:33 AUTOMOTIVE PRODUCTION WORKER Dependent Habits Exposure to Tobacco Smoke : Care provider denies smoking in home Smoking Status : Never smoker Tobacco 2A : No Tobacco Use/Currently Using : No Tobacco Use/Last 30 Days : No Tobacco Use/Last 12 months : No BERNADETTE MILLS [facility] - 08/13/2015 9:33 AUTOMOTIVE PRODUCTION WORKER Caffeine Use Grid Amount : very rare BERNADETTE MILLS [facility] - 08/13/2015 9:33 AUTOMOTIVE PRODUCTION WORKER Source: [facility] POWERCHART Document Id: [id number] AUTOMOTIVE PRODUCTION WORKER!34 MOTIVE PRODUCTION WORKER documented in this encounter Plan of Treatment Not on filedocumented as of this encounter Visit Diagnoses Not on filedocumented in this encounter
--- OUTSIDE RECORDS SUMMARY | 2022-03-28 15:50 | XMS_ITS | Encounter Summary ---
:2000 Author Organization [facility] Address [address] [place] [address] Care Team Providers Name Role Phone Unavailable Primary Care Provider Unavailable Encounter Details Date Type Department Care Team Description 05/08/2016 Hospital Encounter HX [facility] Garrison Katz M.D. [address] [place] [address] (Wo rk) Social History Tobacco [...] 07/21/2021 relatives? How often do you attend taoist or cheondoism services? 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 Last Filed Vital Signs Vital Sign Reading Time Taken Comments Blood Pressure - - Pulse - - Temperature - - Respiratory Rate - - Oxygen Saturation - - Inhaled Oxygen Concentration - - Weight 89.8 kg (197 lb 15.6 oz) 05/08/2016 3:25 PM CDT Height 171 cm (5' 7.32) 05/08/2016 3:25 PM CDT Body Mass Index 30.71 05/08/2016 3:25 PM CDT Body Mass Index Percentile 95.99 % 05/08/2016 3:25 PM CD T Growth Chart: [facility] (Girls, 2-20 Years) documented in this encounter Medications at Time of Discharge Medication Sig Dispensed Refills Start Date End Date cetirizine (ZyrTEC) 10 Take 1 tablet by 0 016 mg tablet mouth daily. FLUoxetine (PROzac) 40 Take 1 capsule by 0 201507/02/2017 mg capsule mouth daily. documented as of this encounter Progress Notes Garrison Lopez M.D. - 05/08/2016 3:46 PM CDT Clinic Full Note CHIEF COMPLAINT/REASON FOR VISIT IBS since 7th grade, wondering if she has a gluten allergy, has had all the scoping in the past, have gotten worse since Mar. Started gluten free diet 2 weeks ago and feels better, would like testing. HISTORY OF PRESENT ILLNESS 16 year old girl brought in by Mother today for gluten allergy test. She has been having abdominal pain and diarrhea often since 7 th grade. Had evaluation then with negative test. Has been on diary free diet with no improvement. She went on gluten free diet for last 2 weeks, felt much better now. Nofamily history of celiac disease. MEDICATIONS dextroamphetamine 15 mg oral capsule, extended [...] (05/30/2011), Esophagogastroduodenoscopy (05/30/2011). SOCIAL HISTORY Date Time: 05/08/2016 15:25 Tobacco: Smoking Status: Never smoker Exposure: Care provider denies smoking in home, Other: non-smoker Alcohol: Use: No Results Found Recreational Drugs: Use: No Results Found Type: No Results Found FAMILY HISTORY Mother: Negative:;;;;;;;;;;;;;;;;;;;;;; SYSTEMS REVIEW As above. VITAL SIGNS T: 36.3 ??C (Core) HR: 83 RR: 16 BP: 100 / 70 SpO2: 97% HT: 171 cm WT: 89.8 kg BMI: 30.71 PHYSICAL EXAMINATION GENERAL: alert, oriented, normal speech, pleasant.. LUNGS: clear to auscultation, no wheezing or rales. HEART: normal sinus rhythm, normal S1, S2, no murmurs. ABDOMEN: soft, non tender, no mass, normal bowel sounds. IMPRESSION/REPORT/PLAN Irritable Bowel Syndrome (IBS) With Diarrhea Blood test not sensitive since she has been on gluten free diet. Has been diagnosed with IBS, and gluten free diet trial is helpful. She may continue with gluten free diet. No test ordered today. School note given for her to have accommodation at school lunch. Consider alternative testing if her symptoms worsening. Gluten free celiac cascade is available in [place] based on [place]. Electronically Signed By: GARRISON LOPEZ MD On: 05/08/2016 03:51 PM Source: [facility] POWERCHART Document Id: [id number] documented in this encounter Miscellaneous Notes Miscellaneous - Garrison Lopez M.D. - 05/08/2016 3:52 PM CDT Ambulatory Patient Summary [address] [id number] Visit Information Name: RUY NEGRETE [facility] Number: [id number] Current Date: 05/08/2016 15:52:15 Physicians Attending Provider: GARRISON LOPEZ MD Primary Care Provider: MELANIA BENITEZ MD RUY [...] 1 Tablet(s), Oral, once a day dextroamphetamine (dextroamphetamine 15 mg oral capsule, extended [...] tablet) 1 Tablet(s), Oral, once a day Stop Taking the Following Medications: Medication list as of 05-08-16 15:52 Attention: If you have any medications at home that are not on this list, DO NOT take them until youcontact your provider for clarification. Give a copy of your medication list to your primary care provider. Update your medication list any time medications or doses are changed and carry your medication list at all times in case of emergency. Electronically Signed By: GARRISON LOPEZ MD Signed On:08-MAY-2016 15:52:12 Your Allergies & Intolerances Substance Reaction Symptoms [...] form. Youll be asked for your [facility] number which you can find at the top of this document. Your Goals/Additional instructions: Source: [facility] POWERCHART Document Id: [id number] Miscellaneous - Garrison Lopez M.D. - 05/08/2016 3:52 PM CDT Ambulatory Discharge Medication List [address] [id number] Visit Information Name: PENELOPERUY [facility] Number: [id number] Current Date: 05/08/2016 15:52:14 Attending Provider: GARRISON LOPEZ MD Primary Care Provider: MELANIA BENITEZ MD RUY NEGRETE SUMIT has been given the following list of [...] 1 Tablet(s), Oral, once a day dextroamphetamine (dextroamphetamine 15 mg oral capsule, extended [...] tablet) 1 Tablet(s), Oral, once a day Stop Taking the Following Medications: Medication list as of 05-08-16 15:52 Attention: If you have any medications at home that are not on this list, DO NOT take them until youcontact your provider for clarification. Give a copy of your medication list to your primary care provider. Update your medication list any time medications or doses are changed and carry your medication list at all times in case of emergency. Electronically Signed By: GARRISON LOPEZ MD Signed On:08-MAY-2016 15:52:12 Additional Information: Source: [facility] GrabTaxiCHART Document Id: [id number] Mark - Garrison Lopez M.D. - 05/08/2016 3:42 PM CDT School Excuse May 08, 2016 RUY NEGRETE [address] [place] [id number] Dear RUY NEGRETE, You were examined in my office on: 05/08/2016. To return to school today: ( _ ) Yes ( _ ) No To return to regular activity: ( _ ) Yes ( _ ) No To have modified activity: ( _ ) Yes ( _ ) No As follows: ( _ ) No contact sports ( _ ) May do upper body activities ( _ ) May do lower body activities ( _ ) May do walking program ( _ ) No physical activity ( _ ) Other: _ Duration of activity restriction: ( _ ) Days ( _ ) Weeks ( _ ) Months ( _ ) Other: _ Physical Therapy referral: ( _ ) Yes ( _ ) No School Medication / Procedure Form completed: ( _ ) Yes ( _ ) Not necessary Notes: _ Please be advised that Ruy needs to be on gluten free diet for her medical condition. Sincerely, GARRISON LOPEZ [address] [place] [phone] Electronic Signature Electronically Signed By: GARRISON LOPEZ MD On: May 08, 2016 This document has images extracted. Source: [facility] [employer] Document Id: [id number] Electronically signed by Latha [facility] Cent[facility] Recruiting Assistant [id number] at 12/10/2016 10:24 AM CDT Mark - Bernadette Krishna L.P.NChen - 05/08/2016 3:25 PM CDT Pediatric Ladies Suit Operator Intake/History Pediatric Ladies Suit Operator Intake/History Entered On: 05/08/2016 15:28 CDT Performed On: 05/08/2016 15:25 CDT by BERNADETTE KRISHNA LPN Intake Chief Complaint : IBS since 7th grade, wondering if she has a gluten allergy, has had all the scoping in the past, have gotten worse since Mar. Started gluten free diet 2 weeks ago and feels better, would like testing. Temperature Core : 36.3 DegC(Converted to: 97.3 DegF) (LOW) Peripheral Pulse Rate : 83 /min Respiratory Rate : 16 /min Heart Rhythm : Regular Systolic Blood Pressure : 100 mmHg Diastolic Blood Pressure : 70 mmHg NIBP Mean : 80 mmHg BP Location : Right upper extremity Blood Pressure Cuff Size : Large SpO2 : 97 % Oxygen Therapy : Room air Height : 171 cm(Converted to: 5 ft 7 inch(es), 67 inch(es)) Actual Weight : 89.8 kg(Converted to: 198 lb 0 oz) Weight Source : Standing scale Dosing Weight Clinic : 89.8 kg Clinic BSA : 2.07 Body Mass Index : 30.71 kg/m2 BERNADETTE KRISHNA LPN - 05/08/2016 15:25 CDT General Info Present in Room During Exam/Procedure : Mother Information Given By : Mother Preferred Communication Mode : Verbal Languages : Irish Is Patient Female and 13-50 no hysterectomy : Yes Status : Patient denies Are you ? : No BERNADETTE KRISHNA LPN - 05/08/2016 15:25 CDT Subjective Pain Symptoms : No BERNADETTE KRISHNA LPN - 05/08/2016 15:25 CDT Dependent Habits Exposure to Tobacco Smoke : Care provider denies smoking in home, Other: non-smoker Smoking Status : Never smoker Tobacco 2A : No Tobacco Use/Currently Using : No Tobacco Use/Last 30 Days : No Tobacco Use/Last 12 months : No BERNADETTE KRISHNA LPN - 05/08/2016 15:25 CDT Caffeine Use Grid Caffeine Use : Current Type : Soft drinks Frequency : Occasionally Amount : very rare BERNADETTE KRISHNA LPN - 05/08/2016 15:25 CDT Source: [facility] POWERCHART Document Id: [id number] CDT!43 documented in this encounter Plan of Treatment Not on filedocumented as of this encounter Visit Diagnoses Not on filedocumented in this encounter
--- OUTSIDE RECORDS SUMMARY | 2022-03-28 15:50 | XMS_ITS | Encounter Summary ---
:2000 Author Organization [facility] Address [address] [place] [address] Care Team Providers Name Role Phone Unavailable Primary Care Provider Unavailable Encounter Details Date Type Department Care Team Description 04/24/2016 Hospital Encounter HX [facility] Alyssa Dodge, GAS MAIN AND LINE FITTER, C.N.P. [address] [place] [address] (Wo rk) Social History Tobacco [...] How often do you attend voodoo or temple services? 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 Last Filed Vital Signs Vital Sign Reading Time Taken Comments Blood Pressure - - Pulse - - Temperature - - Respiratory Rate - - Oxygen Saturation - - Inhaled Oxygen Concentration - - Weight 90 kg (198 lb 6.6 oz) 04/24/2016 3:54 PM CDT Height 174 cm (5' 8.5) 04/24/2016 3:54 PM CDT Body Mass Index 29.73 04/24/2016 3:54 PM CDT Body Mass Index Percentile 95.11 % 04/24/2016 3:54 PM CD T Growth Chart: [facility] (Girls, 2-20 Years) documented in this encounter Medications at Time of Discharge Medication Sig Dispensed Refills Start Date End Date cetirizine (ZyrTEC) 10 Take 1 tablet by 0 016 mg tablet mouth daily. FLUoxetine (PROzac) 40 Take 1 capsule by 0 201507/02/2017 mg capsule mouth daily. documented as of this encounter Progress Notes Alyssa Thomas APRN, C.N.P. - 04/24/2016 5:03 PM CDT Clinic Full Note CHIEF COMPLAINT/REASON FOR VISIT Suture removal and knee pain HISTORY OF PRESENT ILLNESS Patient presents to the clinic with mom for suture removal and evaluation of knee and ankle pain. Patient slipped and fell in the shower 9 days ago. She suffered a laceration to her left first toe andhad 5 sutures placed at an urgent care in [place]. Patient still has some pain on the toe but it is much better. No signs of infection. She is requesting suture removal today. Patient also hurt bother her left ankle and knee when falling in the shower. Her left knee got twisted. She has been walking with a slight limp. She states the pain got worse this morning. She actually went to the nurses office and got a wrap for her left knee. She states that helped a lot with the pain. There has been some swelling but it is improved. No bruising. Pain is located along the entire anterior portion of the knee. Pain is less in the left ankle but still present. She states she was diagnosed with an ankle sprain at urgent care. She is able to walk on her ankle without much pain. She has been wrapping her ankle as well which helps. She did have a right ankle sprain a few months ago but that is better. MEDICATIONS dextroamphetamine 15 mg oral capsule, extended release, dextroamphetamine 15 mg oral capsule, extended release, dextroamphetamine 15 mg oral capsule, extended release, Lutera 100 mcg-20 mcg oral tablet, PROzac 40 mg oral capsule, 40 mg, 1 cap(s), PO, Daily ZyrTEC 10 mg oral tablet, 10 mg, 1 tab(s), PO, Daily List Documented Prior to Med History Completed ALLERGIES NKA PAST MEDICAL HISTORY Chronic Anxiety NOS Disorder Attention Deficit Hyperactive (ADHD) Disorder Autism Spectrum Historical Hip pain-swelling PROCEDURES/SURGICAL HISTORY Colonoscopy (05/30/2011), Esophagogastroduodenoscopy (05/30/2011). SOCIAL HISTORY No Data Available Lives with Mom. Spends weekends with Dad. FAMILY HISTORY Mother: Negative:;;;;;;;;;;;;;;;;;;;;;; SYSTEMS REVIEW Denies fever, chills, dyspnea, numbness, or tingling. VITAL SIGNS T: 36.0 ??C (Core) HR: 82 RR: 18 BP: 118 / 74 SpO2: 100% HT: 174 cm WT: 90.0 kg BMI: 29.73 PHYSICAL EXAMINATION GENERAL: Well developed, well nourished, alert and cooperative, and appears to be in no acute distress. LUNGS: Regular rate and rhythm of breathing. Non-labored. LEFT LOWER EXTREMITY: Minimal edema of left knee. Full ROM of knee. Pain with palpation along anterior knee, just posterior to joint line. Left ankle with full ROM. Pain with palpation along entire anterior ankle. No specific area of pain. Dorsalis pulse 2+. Sensation in lower extremity intact. No warmth or erythema. SKIN: U shaped laceration on the plantar side of first left toe with [address]. No signs of infection. Laceration is healing well. Sensation in left toe intact. IMPRESSION/REPORT/PLAN 1. Laceration Toe W/O Nail Damage W/O Foreign Body (FB) Initial SUTURE REMOVAL: All 5 sutures were removed without complication. Recommend applying a small amount of bacitracin/Vaseline to area until well healed to reduce scarring. Return to clinic with further questions or concerns/as needed. Ordered: 2. Sprain Knee Initial L Discussed supportive cares with patient and Mom. Continue with syeda wrap. Patient was given 2 more syeda bandages to use. I recommend icing the area for 15 minutes multiple times per day. Ibuprofen for pain. Continue with gentle stretching. Symptoms should improve in the next 2-3 weeks. If symptoms do not improve or become worse, patient should return to the clinic for further evaluation. Ordered: 3. Sprain Ankle Initial L Discussed supportive cares. Patient was placed in an ankle brace. I recommend icing the area for 15minutes multiple times per day. Ibuprofen for pain. Symptoms should improve in the next few weeks. If symptoms do not improve, return to the clinic for further evaluation. Ordered: All of Mom's questions were answered. Mom is agreeable with plan outlined above. Patient will return to clinic if symptoms do not improve as expected or become worse. Electronically Signed By: ALYSSA THOMAS CNP On: 04/25/2016 09:08 AM Source: [facility] [employer] Document Id: [id number] documented in this encounter Miscellaneous Notes Miscellaneous - Alyssa Thomas APRN, C.N.P. - 04/24/2016 5:03 PM CDT Ambulatory Discharge Medication List [address] [id number] Visit Information Name: FARHDA NEGRETE [facility] Number: [id number] Current Date: 04/24/2016 17:03:39 Attending Provider: ALYSSA THOMAS CNP Primary Care [...] the Following Medications: Medication list as of 04-24-16 17:03 Attention: If you have any medications at [...] Electronically Signed By: ALYSSA THOMAS CNP Signed On:24-APR-2016 17:03:38 Additional Information: Source: [facility] POWERCHART Document Id: [id number] Miscellaneous - Alyssa Thomas APRN, C.N.P. - 04/24/2016 5:03 PM CDT Ambulatory Patient Summary [address] [id number] Visit Information Name: FARHAD NEGRETE [facility] Number: [id number] Current Date: 04/24/2016 17:03:40 Physicians Attending Provider: ALYSSA THOMAS CNP Primary Care Provider: MELANIA BENITEZ MD FARHAD NEGRETE SUMIT has been given the following [...] the Following Medications: Medication list as of 04-24-16 17:03 Attention: If you have any medications at [...] of emergency. Electronically Signed By: ALYSSA THOMAS ICE CREAM MAN Signed On:24-APR-2016 17:03:38 Your Allergies & Intolerances Substance Reaction Symptoms [...] if you dont have one. Go to [email or web address] and click on Create Your Account. Then, follow the directions to complete the online form. Youll be asked for your [facility] number which you can find at the top of this document. Your Goals/Additional instructions: Source: [facility] POWERCHART Document Id: [id number] Miscellaneous - Nicole Brooke C.M.A. - 04/24/2016 3:54 PM CDT Pediatric Veneer Redrier Intake/History Pediatric Veneer Redrier Intake/History Entered On: 04/24/2016 15:58 CDT Performed On: 04/24/2016 15:54 CDT by [facility] BR[facility] Intake Chief Complaint : removal of sutures from left toe on 04/15/16, left knee pain from fall in the shower on 04/15/16 as well Temperature Core : 36.0 DegC(Converted to: 96.8 DegF) (LOW) Peripheral Pulse Rate : 82 /min Respiratory Rate : 18 /min Systolic Blood Pressure : 118 mmHg Diastolic Blood Pressure : 74 mmHg NIBP Mean : 89 mmHg BP Location : Left upper extremity Blood Pressure Cuff Size : Regular SpO2 : 100 % Oxygen Therapy : Room air Height : 174 cm(Converted to: 5 ft 9 inch(es), 69 inch(es)) Actual Weight : 90.0 kg(Converted to: 198 lb 7 oz) Weight Source : Standing scale Dosing Weight Clinic : 90 kg Clinic BSA : 2.09 Body Mass Index : 29.73 kg/m2 [facility]OOKE [facility] - 04/24/2016 15:54 CDT General Info Mode of Arrival : Ambulatory Present in Room During Exam/Procedure : Mother Languages : Amharic Is Patient Female and 13-50 no hysterectomy : Yes Status : Patient denies Are you ? : No [facility] - 04/24/2016 15:54 CDT Subjective Pain Symptoms : Yes [facility] - 04/24/2016 15:54 CDT Pain Scale Pain Scale Verbal 0-10 : Open [facility] 04/24/2016 15:54 CDT Pain Pain Assessment Grid Pain 1 Location : Knee Laterality : Left Intensity : 4 [facility] - 04/24/2016 15:54 CDT Dependent Habits Exposure to Tobacco Smoke : Care provider denies smoking in home, Other: non-smoker Smoking Status : Never smoker Tobacco 2A : No Tobacco Use/Currently Using : No Tobacco Use/Last 30 Days : No Tobacco Use/Last 12 months : No [facility] - 04/24/2016 15:54 CDT Caffeine Use Grid Caffeine Use : Current Type : Soft drinks Frequency : Occasionally Amount : very rare NICOLE BROOKE WIRE COILER - 04/24/2016 15:54 CDT Source: [employer] Document Id: [id number] CDT!49 documented in this encounter Plan of Treatment Not on filedocumented as of this encounter Visit Diagnoses Not on filedocumented in this encounter
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
--- OUTSIDE RECORDS SUMMARY | 2022-03-28 15:50 | XMS_ITS | Encounter Summary ---
:2000 Author Organization [facility] Address [address] [place] [address] Care Team Providers Name Role Phone Unavailable Primary Care Provider Unavailable Encounter Details Date Type Department Care Team Description 08/10/2015 Hospital Encounter HX [facility] Garrison Katz M.D. [address] [place] [address] (Wo rk) Social History Tobacco [...] How often do you attend taoist or confucianism services? Never 07/21/2021 Do you [...] or slept in a residential (including now)? 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 documented as of this encounter Progress Notes Garrison Lopez M.D. - 08/10/2015 2:09 PM CST Clinic Full Note CHIEF COMPLAINT/REASON FOR VISIT recheck wound HISTORY OF PRESENT ILLNESS 15 year old girl brought in by mother for pilonidal cyst recheck after incision and drainage done yesterday. She had no pain at home. MEDICATIONS Dexedrine Spansule 5 mg oral capsule, extended release, 15 mg, 3 cap(s), PO, Daily AM, 0 refills Lutera 100 mcg-20 mcg oral tablet, 1 tab(s), For further refills, please follow up with PCP, PO, Daily, 3 refills Cornish 5 mg-325 mg oral tablet, 1 tab(s), PO, q6hr, PRN, 0 refills ZyrTEC 10 mg oral tablet, 10 mg, 1 tab(s), PO, Daily ALLERGIES NKA PAST MEDICAL HISTORY Chronic Anxiety NOS Disorder Attention Deficit Hyperactive (ADHD) Disorder Autism Spectrum Historical Hip pain-swelling PROCEDURES/SURGICAL HISTORY Colonoscopy (05/30/2011), Esophagogastroduodenoscopy (05/30/2011). SOCIAL HISTORY Date Time: 08/10/2015 13:57 Tobacco: Smoking Status: Never smoker Exposure: Care provider denies smoking in home Alcohol: Use: No Results Found Recreational Drugs: Use: No Results Found Type: No Results Found FAMILY HISTORY Mother: Negative:;;;;;;;;; SYSTEMS REVIEW As above. VITAL SIGNS T: 36.0 ??C (Core) HR: 87 SpO2: 98% PHYSICAL EXAMINATION GENERAL: alert, oriented, normal speech, pleasant. SKIN: pilonidal cyst site redness and swelling decreased, dressing with bloody fluids, no obvious pus. Mild tender at the site with palpation . IMPRESSION/REPORT/PLAN Cyst Pilonidal With Abscess s/p I & D. Iodoform(1/4 inch) packing changed today. The wound depth 1 cm. Recheck tomorrow. Repacking needed if bloody fluids still large amount. Electronically Signed By: GARRISON LOPEZ MD On: 08/10/2015 02:15 PM Source: HEALTH SYSTEM POWERCHART Document Id: [id number] IER PAYMENTS RECEIVED documented in this encounter Miscellaneous Notes Miscellaneous - Garrison Lopez M.D. - 08/10/2015 2:16 PM CST Ambulatory Patient Summary [address] [id number] Visit Information Name: RUY NEGRETE [facility] Number: [id number] Current Date: 08/10/2015 14:16:22 Physicians Attending Provider: GARRISON LOPEZ MD Primary [...] once a day (in the morning) HYDROcodone-acetaminophen (Cornish 5 mg-325 mg oral tablet) 1 Tablet(s), Oral, every 6 hours as neededfor Pain No more than 4,000mg acetaminophen/24hrs levonorgestrel-ethinyl estradiol (Lutera 100 mcg-20 mcg oral tablet) 1 Tablet(s), Oral, once a day For further refills, please follow up with PCP Stop Taking the Following Medications: Medication list as of 08-10-15 14:16 Attention: If you have any medications at [...] Electronically Signed By: GARRISON LOPEZ MD Signed On:10-AUG-2015 14:16:17 Your Allergies & Intolerances Substance Reaction Symptoms [...] if you dont have one. Go to [email or web address] and click on Create Your Account. Then, follow the directions to complete the online form. Youll be asked for your [facility] number which you can find at the top of this document. Your Goals/Additional instructions: Source: HEALTH SYSTEM POWERCHART Document Id: [id number] IER PAYMENTS RECEIVED Miscellaneous - Garrison Lopez M.D. - 08/10/2015 2:16 PM CST Ambulatory Discharge Medication List [address] [id number] Visit Information Name: RUY NEGRETE [facility] Number: [id number] Visit Date: 08/10/2015 14:16:21 Attending Provider: GARRISON LOPEZ MD Primary Care [...] once a day (in the morning) HYDROcodone-acetaminophen (Cornish 5 mg-325 mg oral tablet) 1 Tablet(s), Oral, every 6 hours as neededfor Pain No more than 4,000mg acetaminophen/24hrs levonorgestrel-ethinyl estradiol (Lutera 100 mcg-20 mcg oral tablet) 1 Tablet(s), Oral, once a day For further refills, please follow up with PCP Stop Taking the Following Medications: Medication list as of 08-10-15 14:16 Attention: If you have any medications at [...] Electronically Signed By: GARRISON LOPEZ MD Signed On:10-AUG-2015 14:16:17 Additional Information: Source: HEALTH SYSTEM POWERCHART Document Id: [id number] IER PAYMENTS RECEIVED Miscellaneous - Bernadette Krishna, L.P.N. - 08/10/2015 1:57 PM CST Pediatric Site Operations Manager Intake/History Pediatric Site Operations Manager Intake/History Entered On: 08/10/2015 13:57 CASHIER PAYMENTS RECEIVED Performed On: 08/10/2015 13:57 CASHIER PAYMENTS RECEIVED by BERNADETTE KRISHNA LPN Intake Chief Complaint : recheck wound Temperature Core : 36.0 DegC(Converted to: 96.8 DegF) (LOW) Peripheral Pulse Rate : 87 /min SpO2 : 98 % Oxygen Therapy : Room air BERNADETTE KRISHNA LPN - 08/10/2015 13:57 CASHIER PAYMENTS RECEIVED General Info Accompanied By : Mother Information Given By : Patient, Mother Preferred Communication Mode : Verbal Languages : Salvadorean Is Patient Female and 13-50 no hysterectomy : Yes Status : Patient denies Are you ? : No BERNADETTE KRISHNA LPN - 08/10/2015 13:57 CASHIER PAYMENTS RECEIVED Subjective Pain Symptoms : No BERNADETTE KRISHNA LPN - 08/10/2015 13:57 CASHIER PAYMENTS RECEIVED Dependent Habits Exposure to Tobacco Smoke : Care provider denies smoking in home Smoking Status : Never smoker Tobacco 2A : No Tobacco Use/Currently Using : No Tobacco Use/Last 30 Days : No Tobacco Use/Last 12 months : No BERNADETTE KRISHNA LPN - 08/10/2015 13:57 CASHIER PAYMENTS RECEIVED Caffeine Use Grid Amount : very rare BERNADETTE KRISHNA COSMETICS PRESSER - 08/10/2015 13:57 CASHIER PAYMENTS RECEIVED Source: HEALTH SYSTEM POWERCHART Document Id: [id number] CASHIER PAYMENTS RECEIVED!27 IER PAYMENTS RECEIVED documented in this encounter Plan of Treatment Not on filedocumented as of this encounter Visit Diagnoses Not on filedocumented in this encounter
--- OUTSIDE RECORDS SUMMARY | 2022-03-28 15:50 | XMS_ITS | Encounter Summary ---
:2000 Author Organization [facility] Address [address] [place] [address] Care Team Providers Name Role Phone Unavailable Primary Care Provider Unavailable Encounter Details Date Type Department Care Team Description 08/07/2016 Hospital Encounter HX [facility] Alyssa Dodge, SLURRY WORKER, C.N.P. [address] [place] [address] (Wo rk) Social History Tobacco [...] 07/21/2021 relatives? How often do you attend hindu or church services? Never 07/21/2021 Do you belong to any clubs or organizations such as No 07/21/2021 hindu groups, unions, fraternal or athletic groups, or [...] place to sleep or slept in a retirement (including now)? 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 documented as of this encounter Last Filed Vital Signs Vital Sign Reading Time Taken Comments Blood Pressure - - Pulse - - Temperature - - Respiratory Rate - - Oxygen Saturation - - Inhaled Oxygen Concentration - - Weight 87.4 kg (192 lb 10.9 oz) 08/07/2016 3:11 PM TUMBLER MACHINE OPERATOR HELPER Height 175.2 cm (5' 8.98) 08/07/2016 3:11 PM TUMBLER MACHINE OPERATOR HELPER Body Mass Index 28.47 08/07/2016 3:11 PM TUMBLER MACHINE OPERATOR HELPER Body Mass Index Percentile 93.22 % 08/07/2016 3:11 PM CS T Growth Chart: [facility] (Girls, 2-20 Years) documented in this encounter Medications at Time of Discharge Medication Sig Dispensed Refills Start Date End Date cetirizine (ZyrTEC) 10 Take 1 tablet by 0 016 mg tablet mouth daily. FLUoxetine (PROzac) 40 Take 1 capsule by 0 201507/02/2017 mg capsule mouth daily. documented as of this encounter Progress Notes Alyssa Thomas APRN, C.N.P. - 08/07/2016 3:33 PM CST Clinic Full Note CHIEF COMPLAINT/REASON FOR VISIT Medication refills for control and ADHD med HISTORY OF PRESENT ILLNESS Farhad Negrete is a 16-year-old female who presents to clinic with mom for medication refills. Patient is doing really well on dextroamphetamine 15 mg extended release daily. She is doing well in school. She has friends. She participates in dance. Mom reports no difficulties with concentration.Patient denies any chest pain or chest pressure. No palpitations. Patient also needs refill of her control. She is on control for heavy periods and cramping. The control has significantly improved her cramps and her menorrhagia. Patient does not smoke. No history of hypertension. Of note, patient is started on a gluten free and dairy free diet. Mom reports her abdominal pain and bloating is significantly improved. Patient states she feels so much better that it is not worth eating any gluten or dairy. MEDICATIONS dextroamphetamine 15 mg oral capsule, extended [...] 10 mg, 1 tab(s), PO, Daily ALLERGIES Glutens PAST MEDICAL HISTORY Chronic Anxiety NOS Disorder Attention Deficit Hyperactive (ADHD) Disorder Autism Spectrum Historical Hip pain-swelling PROCEDURES/SURGICAL HISTORY Colonoscopy (05/30/2011), Esophagogastroduodenoscopy (05/30/2011). SOCIAL HISTORY Date Time: 08/07/2016 15:11 Tobacco: Smoking Status: Never smoker Exposure: Care provider denies smoking in home, Other: non-smoker Alcohol: Use: No Results Found Recreational Drugs: Use: No Results Found Type: No Results Found FAMILY HISTORY Mother: Negative:;;;;;;;;;;;;;;;;;;;;;; SYSTEMS REVIEW A full 14 point review of systems is negative. VITAL SIGNS T: 36.2 ??C (Core) HR: 79 BP: 102 / 60 SpO2: 98% HT: 175.2 cm WT: 87.4 kg BMI: 28.47 PHYSICAL EXAMINATION GENERAL: Well developed, well nourished, [...] IMPRESSION/REPORT/PLAN 1. Disorder Attention Deficit Hyperactive (ADHD) Continue with dextroamphetamine 15 mg extended release daily . Patient is given 3 separate prescriptions for the next 3 months. Patient will call into clinic for the next 3 month prescriptions. I willneed to see her in 6 months. If she starts having concentration or develop side effects from the medication patient return to clinic. Patient is aware to not sell her medication and the high risk of abuse potential. Ordered: 2. Menorrhagia control refilled for 1 year. Patient is aware of the potential risks of blood clots. Ordered: Orders: dextroamphetamine, 15 mg = 1 cap(s), PO, Daily AM, # 30 cap(s), 0 Refill(s), Maintenance dextroamphetamine, 15 mg = 1 cap(s), PO, Daily AM, # 30 cap(s), 0 Refill(s), Maintenance dextroamphetamine, 15 mg = 1 cap(s), PO, Daily AM, # 30 cap(s), 0 Refill(s), Maintenance levonorgestrel-ethinyl estradiol, 1 tab(s), PO, Daily, # 90 tab(s), 3 Refill(s), Maintenance, Pharmacy: [facility] All of patient's questions were answered. Patient is agreeable with plan outlined above. Patient will return to clinic if symptoms do not improve as expected or become worse. Electronically Signed By: ALYSSA THOMAS CNP On: 08/08/2016 03:42 PM Source: [facility] POWERCHART Document Id: [id number] LER MACHINE OPERATOR HELPER documented in this encounter Miscellaneous Notes Miscellaneous - Alyssa Thomas APRN, C.N.P. - 08/07/2016 3:33 PM CST Ambulatory Patient Summary [address] [id number] Visit Information Name: HIGINIOFARHAD SURESH [facility] Number: [id number] Current Date: 08/07/2016 15:33:46 Physicians Attending Provider: ALYSSA THOMAS CNP Primary [...] day (in the morning) Routed to Printer FLUoxetine (PROzac 40 mg oral capsule) 1 cap, Oral, once a day levonorgestrel-ethinyl estradiol (Lutera 100 mcg-20 mcg oral tablet) 1 Tablet(s), Oral, once a day Routed to [address] [address] Stop Taking the Following Medications: Medication list as of 08-07-16 15:33 Attention: If you have any medications at [...] Electronically Signed By: ALYSSA THOMAS CNP Signed On:07-AUG-2016 15:33:44 Your Allergies & Intolerances Substance Reaction Symptoms Category Comments Glutens Food Your Problem List Problem Status [...] if you dont have one. Go to [email or web address] and click on Create Your Account. Then, follow the directions to complete the online form. Youll be asked for your [facility] number which you can find at the top of this document. Your Goals/Additional instructions: Source: [facility] POWERCHART Document Id: [id number] LER MACHINE OPERATOR HELPER Miscellaneous - Alyssa Thomas, BARBER, C.N.P. - 08/07/2016 3:33 PM CST Ambulatory Discharge Medication List [facility] [address] [place], [place] [id number] Visit Information Name: FARHAD NEGRETE [facility] Number: [id number] Current Date: 08/07/2016 15:33:45 Attending Provider: ALYSSA THOMAS [facility] Primary Care Provider: MELANIA BENITEZ MD PENELOPE FARHAD ARANA has been given the following list [...] day (in the morning) Routed to Printer FLUoxetine (PROzac 40 mg oral capsule) 1 cap, Oral, once a day levonorgestrel-ethinyl estradiol (Lutera 100 mcg-20 mcg oral tablet) 1 Tablet(s), Oral, once a day Routed to [facility] [address] [place] [address] Stop Taking the Following Medications: Medication list as of 08-07-16 15:33 Attention: If you have any medications at [...] of emergency. Electronically Signed By: ALYSSA THOMAS MILITARY PAY TECHNICIAN Signed On:07-AUG-2016 15:33:44 Additional Information: Source: [facility] POWERCHART Document Id: [id number] LER MACHINE OPERATOR HELPER Miscellaneous - Radha Graham L.P.N. - 08/07/2016 3:11 PM CST Pediatric Restaurant Culinary Manager Intake/History Pediatric Restaurant Culinary Manager Intake/History Entered On: 08/07/2016 15:13 TUMBLER MACHINE OPERATOR HELPER Performed On: 08/07/2016 15:11 TUMBLER MACHINE OPERATOR HELPER by RADHA GRAHAM LPN Intake Chief Complaint : med check and refills for control and ADHD med Temperature Core : 36.2 DegC(Converted to: 97.2 DegF) (LOW) Peripheral Pulse Rate : 79 /min Systolic Blood Pressure : 102 mmHg Diastolic Blood Pressure : 60 mmHg NIBP Mean : 74 mmHg SpO2 : 98 % Oxygen Therapy : Room air Height : 175.2 cm(Converted to: 5 ft 9 inch(es), 69 inch(es)) Actual Weight : 87.4 kg(Converted to: 192 lb 11 oz) Dosing Weight Clinic : 87.4 kg Clinic BSA : 2.06 Body Mass Index : 28.47 kg/m2 RADHA GRAHAM LPN - 08/07/2016 15:11 TUMBLER MACHINE OPERATOR HELPER General Info Present in Room During Exam/Procedure : Mother Languages : Comoran Is Patient Female and 13-50 no hysterectomy : Yes Status : Patient denies Are you ? : No RADHA GRAHAM LPN - 08/07/2016 15:11 TUMBLER MACHINE OPERATOR HELPER Subjective Pain Symptoms : No RADHA GRAHAM LPN - 08/07/2016 15:11 TUMBLER MACHINE OPERATOR HELPER Dependent Habits Exposure to Tobacco Smoke : Care provider denies smoking in home, Other: non-smoker Smoking Status : Never smoker Tobacco 2A : No Tobacco Use/Currently Using : No Tobacco Use/Last 30 Days : No Tobacco Use/Last 12 months : No RADHA GRAHAM LPN - 08/07/2016 15:11 TUMBLER MACHINE OPERATOR HELPER Caffeine Use Grid Caffeine Use : Current Type : Soft drinks Frequency : Occasionally Amount : very rare RADHA GRAHAM LPN - 08/07/2016 15:11 TUMBLER MACHINE OPERATOR HELPER Source: [facility] POWERCHART Document Id: [id number] TUMBLER MACHINE OPERATOR HELPER!36 LER MACHINE OPERATOR HELPER documented in this encounter Plan of Treatment Not on filedocumented as of this encounter Visit Diagnoses Not on filedocumented in this encounter
--- OUTSIDE RECORDS SUMMARY | 2022-03-28 15:50 | XMS_ITS | Encounter Summary ---
:1999 Author Organization [facility] Address [address] [place] [address] Care Team Providers Name Role Phone Lionel Luo M.D. Primary Care Provider [phone] Encounter Details Date Type Department Care Team Description 06/28/2017 Abstract Department of Family Medicine in [place] [address] [address] [place], [place] [phone] Social History Tobacco Use Types Packs/Day Years [...] How often do you attend cheondoism or hindu services? 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 PCP - General 01/12/17 [address] [facility] [place] [address] documented as of this encounter
--- OUTSIDE RECORDS SUMMARY | 2022-03-28 15:50 | XMS_ITS | Encounter Summary ---
:[address] [facility] Address [address] [place] [address] Care Team Providers Name Role Phone Lionel Luo M.D. Primary Care Provider [phone] Reason for Visit Reason Comments Other Would like to discuss going back on Adderall Encounter Details Date Type Department Care Team Description 01/21/2019 Office Visit Department of [facility] Alyssa Thomas Atte ntion Deficit With Hyperactivity Disorder (Primary Dx); Medicine in [employer]ODUCTS I ASSEMBLER, C.N.P. Anxiety Generalized Disorder Christian Anderson [address] [place], [place] [id number] Social History Tobacco Use Types Packs/Day Years [...] 07/21/2021 relatives? How often do you attend zoroastrianism or episcopalian services? Never 07/21/2021 Do you belong to any clubs or organizations such as No 07/21/2021 zoroastrianism groups, unions, fraternal or athletic groups, or [...] place to sleep or slept in a long term (including now)? 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 - 01/21/2019 2:30 PM CDT SUBJECTIVE CHIEF COMPLAINT / REASON FOR VISIT Other (Would like to discuss going back on Adderall ) HISTORY OF PRESENT ILLNESS Ruy Rice is a 18 y.o. female who presents for medication questions. Patient stopped taking her Prozac in August because she was not able follow up with her psychiatrist. She does have an appointment on February 27, 2019 with her psychiatrist. She feels she would like to restart the Prozac at a low dose now to get things moving. She also would like to restart the dextroamphetamine. She willbe re-starting college and has struggled without medication for ADHD. She has been on this before. Patient is also looking at other options for control. She would like to discuss getting an IUDif possible. Review of Systems Denies fevers, chills, chest pain, chest pressure, palpitations, thoughts of suicide or self-harm. The following portions of the patient's history were reviewed and updated as appropriate: allergies,current medications, surgical history, social history and problem list OBJECTIVE BP 120/68 (BP Location: Left arm, Patient Position: Sitting, Cuff Size: Large) Pulse 93 Temp 36.2 ??C Wt 97.7 kg LMP 01/18/2019 SpO2 97% ? No BMI 32.27 kg/m?? PHYSICAL EXAM General Appearance: awake, alert, oriented, in no acute distress Skin: skin color, texture, turgor are normal Lungs: Normal expansion. Clear to auscultation. No rales, rhonchi, or wheezing. Heart: Heart sounds are normal. Regular rate and rhythm without murmur, gallop or rub. ASSESSMENT / PLAN 1. Attention Deficit With Hyperactivity Disorder Discussed with the patient and mom that I will give 1 month for refills of the dextroamphetamine. Further treatment and recommendations can be done through her psychiatrist. Patient is where the potential side effects of this medication. - dextroamphetamine (DEXEDRINE SPANSULE) 15 mg ER capsule; Take 1 capsule (15 mg total) by mouth daily. Dispense: 30 capsule; Refill: 0 2. Anxiety Generalized Disorder Patient is also given a prescription for Prozac 20 mg to start. She has been up to 60 mg in the past. She is encouraged to follow up with her psychiatrist. - FLUoxetine (PROzac) 20 mg capsule; Take 1 capsule (20 mg total) by mouth daily. Dispense: 30 capsule; Refill: 1 All of patient's questions were answered. Patient is agreeable with plan outlined above. Patient will return to clinic if symptoms do not improve as expected or become worse. Total time spent 30 minutes, 25 minutes spent in counseling, review of outside records, and coordination of care. documented in this encounter Plan of Treatment Not on filedocumented as of this encounter Visit Diagnoses Diagnosis Attention Deficit With Hyperactivity Dis order - Primary Anxiety Generalized Disorder documented in this encounter Additional Health Concerns Assessment Noted Time PHQ-9 Depression Total Score: 9 01/21/2019 3:13 PM CDT documented as of this encounter Care Teams Reconnaissance Man Relationship Specialty Start Date End Date Lionel Luo M.D. PCP - General 01/12/[address] [place] [id number] documented as of this encounter
--- OUTSIDE RECORDS SUMMARY | 2022-03-28 15:50 | XMS_ITS | Encounter Summary ---
:2000 Author Organization [facility] Address [address] [place] [address] Care Team Providers Name Role Phone Unavailable Primary Care Provider Unavailable Encounter Details Date Type Department Care Team Description 03/02/2015 Hospital Encounter [facility]X [facility] Vianca Jaime, SWAMPER, C.N.P. [address] [place] [address] (Wo rk) Social History Tobacco [...] How often do you attend episcopalian or zoroastrianism services? Never 07/21/2021 Do you [...] or slept in a half-way (including now)? 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 - 03/02/2015 3:47 PM CDT [id number] CHIEF COMPLAINT/REASON FOR VISIT Ruy is here with her mom for refill of her control and Dexedrine. HISTORY OF PRESENT ILLNESS 1. Patient was started on Lutera oral contraceptive for painful menstruation, cramping, plus heavy menses 1 year ago. She has not been sexually active. She does get her menstrual cycles regularly, and she feels that it has helped her greatly reduce her PMS symptoms. She is very content with the medication and would like to continue on it. She denies any side effects. No headaches or abnormal bleeding. 2. Ruy has underwent multiple psychiatric evaluations, most recent 2012 at the [facility]. She was diagnosed with autism spectrum disorder, pervasive developmental disorder, ADHD. Ruy does very well in school and has had improved functioning with the Dexedrine; she did get As and BS and is active. She is able to make friends, and Mom notes a drastic improvement while on the medicine. Ruy did make the decision to go off of Dexedrine over the summer to have a break. Mom states this is completely Ruy's idea, and she was able to manage her symptoms. However, at times, it became difficult for her to concentrate. She is interested in restarting it while during school. She denies any side effects with the medications. Her evaluation report is in her paper records. PAST MEDICAL/SURGICAL HISTORY PAST MEDICAL HISTORY: Autism. ADHD. Dysmenorrhea. Anxiety. SURGICAL HISTORY: Colonoscopy and EGD in 2010. FAMILY HISTORY Negative. SOCIAL HISTORY Ruy lives with her mother and older brother. She does visit her dad and stepbrothers. No smoking. No alcohol use. She will be a sophomore at [employer]. MEDICATIONS Lutera. Dexedrine 15 mg daily. Currently not taking. ALLERGIES No known drug allergies. SYSTEMS REVIEW A 14-point review of systems completed and all systems negative except for complaints as above. VITAL SIGNS Temp 36.7, heart rate 83, blood pressure 118/78, O2 sat 98%. Height 170, weight 88.5, BMI 30.62. PHYSICAL EXAMINATION GENERAL: A very pleasant, 14-year-old female, who expresses herself quite well today. She is smiley and talkative. HEENT: Conjunctivae, TMs, nasal mucosa clear. CHEST: Lungs clear to auscultation. HEART: Rate rhythm is regular. GI: Abdomen is soft, nontender. No palpable mass or organomegaly. IMPRESSION/REPORT/PLAN 1. Dysmenorrhea, improved. 2. Autism spectrum disorder. 3. ADHD (attention-deficit hyperactivity disorder). PLAN: 1. We will refill control for 1 year. Side effects and adverse effects of the medication were reviewed today with Mom including the increased risk for blood clots. STD prevention was discussed ifshe should become sexually active, and patient voices understanding. Advised annual physical exams with Paps beginning at age 21. 2. I did go ahead and refill her Dexedrine 5 mg ER. She will take 3 caps daily every morning #90, norefills. However, 3 prescriptions dated for subsequent months were provided to her and they will keep this on file at her pharmacy. Encouraged to call or return if she is not feeling that the medication is controlling her symptoms or helping with her concentration. They do voice understanding and willfollow up in 6 months. Nidhi Silva, C.N.P./pos Electronically Signed By: NIDHI SILVA CONTRACT NEGOTIATION SPECIALIST On: 03/03/2015 12:43 PM Source: [facility] [id number] Document Id: [id number] documented in this encounter Miscellaneous Notes Miscellaneous - Shirley Moreno L.P.N. - 04/27/2015 11:16 AM CDT silvana Document Contains Addenda Addendum by SUKHJINDER COBB RN on 27 April 2015 11:41:29 CDT Notified Joya unable to redo the script, she will resubmit next month request for a refill. From: SHIRLEY MORENO LPN (ALEJANDRINA Guerra Nurse) To: [facility] Nurse; Sent: 04/27/2015 11:16:57 CDT Subject: silvana Pts mother Joya calling in stating she has lost pts last Dexedrine script dated 04/25/15. please advise if additional script can be given. I contacted pts pharmacy and they do not have a script on file. Joya CB# [phone] pt uses [facility] Source: [facility] [place] Document Id: [id number] Electronically signed by Latha [facility] Donor Services Specialist [id number] at 12/11/2016 2:24 AM CDT Miscellaneous - Nidhi Silva, BARBER, C.N.P. - 03/02/2015 4:42 PM CDT Ambulatory Patient Summary [address] [id number] Visit Information Name: RUY NEGRETE [facility] Number: [id number] Current Date: 03/02/2015 16:42:55 Physicians Attending Provider: NIDHI SILVA CONTRACT NEGOTIATION SPECIALIST Primary Care Provider: MELANIA BENITEZ MD RUY [...] Indications/Special Instructions/Comments/Notes for Patient Medication Changes/Routing dextroamphetamine (Dexedrine Spansule 5 mg oral capsule, extended release) 3 cap, Oral, once a day (in the morning) Routed to Printer dextroamphetamine (Dexedrine Spansule 5 mg oral capsule, extended release) 3 cap, Oral, once a day (in the morning) New Routed to Printer levonorgestrel-ethinyl estradiol (Lutera 100 mcg-20 mcg oral tablet) 1 Tablet(s), Oral, once a day For further refills, please follow up with PCP Routed to Printer Stop Taking the Following Medications: Medication list as of 03-02-15 16:42 Attention: If you have any medications at home that are not on this list, DO NOT take them until youcontact your provider for clarification. Give a copy of your medication list to your primary care provider. Update your medication list any time medications or doses are changed and carry your medication list at all times in case of emergency. Electronically Signed By: NIDHI SILVA CONTRACT NEGOTIATION SPECIALIST Signed On:02-MAR-2015 16:42:52 Your Allergies & Intolerances Substance Reaction Symptoms Category Comments No Known Allergies Drug Your Problem List Problem Status Onset Comments Hip pain-swelling Active 08/23/2013 Your Upcoming Appointments Date Time Location Provider [...] if you dont have one. Go to [email or web address] and click on Create Your Account. Then, follow the directions to complete the online form. Youll be asked for your [facility] number which you can find at the top of this document. Your Goals/Additional instructions: Source: [facility] POWERCHART Document Id: [id number] Miscellaneous - Nidhi Silva APRN, C.N.P. - 03/02/2015 4:42 PM CDT Ambulatory Discharge Medication List [address] [id number] Visit Information Name: RUY NEGRETE [facility] Number: [id number] Visit Date: 03/02/2015 16:42:54 Attending Provider: NIDHI SILVA NP Primary Care Provider: MELANIA BENITEZ MD [...] Indications/Special Instructions/Comments/Notes for Patient Medication Changes/Routing dextroamphetamine (Dexedrine Spansule 5 mg oral capsule, extended release) 3 cap, Oral, once a day (in the morning) Routed to Printer dextroamphetamine (Dexedrine Spansule 5 mg oral capsule, extended release) 3 cap, Oral, once a day (in the morning) New Routed to Printer levonorgestrel-ethinyl estradiol (Lutera 100 mcg-20 mcg oral tablet) 1 Tablet(s), Oral, once a day For further refills, please follow up with PCP Routed to Printer Stop Taking the Following Medications: Medication list as of 03-02-15 16:42 Attention: If you have any medications at home that are not on this list, DO NOT take them until youcontact your provider for clarification. Give a copy of your medication list to your primary care provider. Update your medication list any time medications or doses are changed and carry your medication list at all times in case of emergency. Electronically Signed By: NIDHI SILVA CONTRACT NEGOTIATION SPECIALIST Signed On:02-MAR-2015 16:42:52 Additional Information: Source: [facility] POWERCHART Document Id: [id number] Miscellaneous - Luzmaria Bynum, L.P.N. - 03/02/2015 3:52 PM CDT Pediatric Adjunct Psychology Faculty Member Intake/History Pediatric Adjunct Psychology Faculty Member Intake/History Entered On: 03/02/2015 15:53 CDT Performed On: 03/02/2015 15:52 CDT by KADLEC, LUZMARIA D AMERICAN HISTORY PROFESSOR Intake Chief Complaint : refills Temperature Core : 36.7 DegC(Converted to: 98.1 DegF) Peripheral Pulse Rate : 83 /min Systolic Blood Pressure : 118 mmHg Diastolic Blood Pressure : 78 mmHg NIBP Mean : 91 mmHg Height : 170 cm(Converted to: 5 ft 7 inch(es), 67 inch(es)) Actual Weight : 88.5 kg(Converted to: 195 lb 2 oz) Dosing Weight Clinic : 88.5 kg Clinic BSA : 2.04 Body Mass Index : 30.62 kg/m2 LUZMARIA BYNUM AMERICAN HISTORY PROFESSOR - 03/02/2015 15:52 CDT General Info Languages : Bolivian Is Patient Female and 13-50 no hysterectomy : Yes Status : Patient denies Are you ? : No LUZMARIA BYNUM LPN - 03/02/2015 15:52 CDT Subjective Pain Symptoms : No LUZMARIA BYNUM LPN - 03/02/2015 15:52 CDT Dependent Habits Tobacco Use/Currently Using : No Exposure to Tobacco Smoke : Care provider denies smoking in home Smoking Status : Never smoker LUZMARIA BYNUM AMERICAN HISTORY PROFESSOR - 03/02/2015 15:52 CDT Caffeine Use Grid Amount : very rare LUZMARIA BYNUM AMERICAN HISTORY PROFESSOR - 03/02/2015 15:52 CDT Source: [employer] Document Id: [id number] CDT!27 documented in this encounter Plan of Treatment Not on filedocumented as of this encounter Visit Diagnoses Not on filedocumented in this encounter
--- OUTSIDE RECORDS SUMMARY | 2022-03-28 15:50 | XMS_ITS | Encounter Summary ---
:2000 Author Organization [facility] Address [address] [place] [address] Care Team Providers Name Role Phone Lionel Luo M.D. Primary Care Provider [phone] Reason for Visit Reason Comments Med Management Encounter Details Date Type Department Care Team Description 07/02/2018 Office Visit Department of [facility] Alyssa Thomas Mana gement Contraception Medicine in PHD INTERN, C.N.P. Prescription Christian Darling a [address] [place] [phone] Social History Tobacco Use Types Packs/Day Years [...] 07/21/2021 relatives? How often do you attend orthodox or samaritan services? 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 - 07/02/2018 4:00 PM CST SUBJECTIVE CHIEF COMPLAINT / REASON FOR VISIT Med Management HISTORY OF PRESENT ILLNESS Ruy Rice is a 18 y.o. female who presents for refill of control. Patient was started on control about a year ago for menorrhagia. It is helped her menorrhagia significantly. It has also helped her mood. She has also noticed improvement in acne. She has no side effects from the medication. She is very happy with the medication at this point. Of note, patient was diagnosed with obstructive sleep apnea and will be started on CPAP therapy nextweek. She is actually excited to start treatment as she is hoping this will help with her fatigue. She will be following up with sleep specialist. Review of Systems Denies any chest pain, chest pressure, palpitations, calf pain, lightheadedness, or dizziness. The following portions of the patient's history were reviewed and updated as appropriate: current medications, social history, allergies, surgical history and problem list OBJECTIVE BP 108/58 Pulse 89 Temp 36.3 ??C Wt 93.1 kg SpO2 98% BMI 30.74 kg/m?? PHYSICAL EXAM General Appearance: awake, alert, oriented, in no acute distress Skin: skin color, texture, turgor are normal Lungs: Normal expansion. Clear to auscultation. No rales, rhonchi, or wheezing. Heart: Heart sounds are normal. Regular rate and rhythm without murmur, gallop or rub. ASSESSMENT / PLAN 1. Management Contraception Prescription control is refilled for 1 year. Patient is aware does not protect against any STDs. Patient isaware of the potential side effects. I hope treating patient's sleep apnea will help her symptoms. If she needs any other assistance she will let me know. - levonorgestrel-ethinyl estrad (AVIANE,ALESSE,LESSINA) 0.1-20 mg-mcg per tablet; Take 1 tablet by mouth daily. Dispense: 84 tablet; Refill: 3 All of patient's questions were answered. Patient is agreeable with plan outlined above. Patient will return to clinic in 1 year sooner if needed. NEERING LECTURER documented in this encounter Plan of Treatment Not on filedocumented as of this encounter Visit Diagnoses Diagnosis Management Contraception Prescription documented in this encounter Care Teams Group Tester Relationship Specialty Start Date End Date Lionel Luo M.D. PCP - General 01/12/17 [address] [place] [phone] documented as of this encounter
--- OUTSIDE RECORDS SUMMARY | 2022-03-28 15:50 | XMS_ITS | Encounter Summary ---
:1999 Author Organization [facility] Address [address] [place] [address] Care Team Providers Name Role Phone Unavailable Primary Care Provider Unavailable Encounter Details Date Type Department Care Team Description 04/03/2016 Hospital Encounter HX [facility] Alyssa Dodge, LADLE PULLER, C.N.P. [address] [place] [address] (Wo rk) Social History Tobacco [...] 07/21/2021 relatives? How often do you attend protestant or zoroastrian services? Never 07/21/2021 Do you belong to any clubs or organizations such as No 07/21/2021 protestant groups, unions, fraternal or athletic groups, or [...] or slept in a penitentiary (including now)? 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 - 04/03/2016 4:02 PM CDT Clinic Full Note CHIEF COMPLAINT/REASON FOR VISIT Medicaiton check HISTORY OF PRESENT ILLNESS Patient presents to clinic with her mom for check on ADHD medication. Patient states she is doing well. She has no side effects from the medication. School is going well. She is not having any difficulties with concentration. Her appetite is good. She has had a couple pound weight loss in the last few months. Started only takes the medication on school days. She does not take it on the weekends. Patient is seen a psychiatrist and has been started on Prozac. She states her anxiety is much improved since starting the Prozac. She will be following up with psychiatrist next few months. MEDICATIONS Dexedrine Spansule 5 mg oral capsule, extended release, 15 mg, 3 cap(s), PO, Daily AM, 0 refills dextroamphetamine [...] (05/30/2011), Esophagogastroduodenoscopy (05/30/2011). SOCIAL HISTORY Date Time: 04/03/2016 15:39 Tobacco: Smoking Status: Never smoker Exposure: Care provider denies smoking in home, Other: non-smoker Alcohol: Use: No Recreational Drugs: Use: No Results Found Type: No Results Found FAMILY HISTORY Mother: Negative:;;;;;;;;;;;;;;;;;;;;;; SYSTEMS REVIEW Denies fever, chills, dyspnea, chest pain, chest pressure, lightheadedness, dizziness, nausea, vomiting. VITAL SIGNS T: 36.8 ??C (Core) HR: 72 RR: 18 BP: 118 / 70 SpO2: 99% WT: 90.1 kg PHYSICAL EXAMINATION GENERAL: Well developed, well [...] IMPRESSION/REPORT/PLAN 1. Disorder Attention Deficit Hyperactive (ADHD) We will continue with the same dose of dextroamphetamine. Patient is given 3 separate prescriptionsfor 1 month at a time. Patient will need to call in for refills and 3 months. I will need to see thepatient back in 6 months. Patient is advised to be abuse potential with this medication. Ordered: Orders: dextroamphetamine, 15 mg = 1 cap(s), PO, Daily AM, # 30 cap(s), 0 Refill(s), Maintenance dextroamphetamine, 15 mg = 1 cap(s), PO, Daily AM, # 30 cap(s), 0 Refill(s), Maintenance dextroamphetamine, 15 mg = 1 cap(s), PO, Daily AM, # 30 cap(s), 0 Refill(s), Maintenance Return Visit [facility] Med 30 Min All of patient and Moms' questions were answered. Patient and Mom are agreeable with plan outlined above. Patient will return to clinic if symptoms do not improve as expected or become worse. Electronically Signed By: ALYSSA THOMAS CNP On: 04/04/2016 08:56 AM [facility] Document Id: [id number] documented in this encounter Miscellaneous Notes Miscellaneous - Alyssa Thomas APRN, C.N.P. - 04/03/2016 4:02 PM CDT Ambulatory Discharge Medication List [address] [id number] Visit Information Name: HIGINIOFARHAD SURESH [facility] Number: [id number] Visit Date: 04/03/2016 16:02:08 Attending Provider: ALYSSA THOMAS BRICK AND TILE MAKING MACHINE OPERATOR Primary Care Provider: MELANIA BENITEZ MD FARHAD [...] the Following Medications: Medication list as of 04-03-16 16:02 Attention: If you have any medications at [...] Electronically Signed By: ALYSSA THOMAS CNP Signed On:03-APR-2016 16:02:05 Additional Information: Source: [facility] POWERCHART Document Id: [id number] Miscellaneous - Alyssa Thomas APRN, C.N.P. - 04/03/2016 4:02 PM CDT Ambulatory Patient Summary [address] [id number] Visit Information Name: FARHAD NEGRETE [facility] Number: [id number] Current Date: 04/03/2016 16:02:09 Physicians Attending Provider: ALYSSA THOMAS CNP Primary [...] the Following Medications: Medication list as of 04-03-16 16:02 Attention: If you have any medications at [...] of emergency. Electronically Signed By: ALYSSA THOMAS BRICK AND TILE MAKING MACHINE OPERATOR Signed On:03-APR-2016 16:02:05 Your Allergies & Intolerances Substance Reaction Symptoms [...] if you dont have one. Go to [email or web address] and click on Create Your Account. Then, follow the directions to complete the online form. Youll be asked for your [facility] number which you can find at the top of this document. Your Goals/Additional instructions: Source: [facility] POWERCHART Document Id: [id number] Miscellaneous - Shirley Tate L.PChenN. - 04/03/2016 3:39 PM CDT Pediatric Ram Car Operator Intake/History Pediatric Ram Car Operator Intake/History Entered On: 04/03/2016 15:41 CDT Performed On: 04/03/2016 15:39 CDT by SHIRLEY TATE LPN Intake Chief Complaint : MEDICATION CHECK UP Temperature Core : 36.8 DegC(Converted to: 98.2 DegF) Peripheral Pulse Rate : 72 /min Respiratory Rate : 18 /min Heart Rhythm : Regular Systolic Blood Pressure : 118 mmHg Diastolic Blood Pressure : 70 mmHg NIBP Mean : 86 mmHg BP Location : Left upper extremity Blood Pressure Cuff Size : Regular SpO2 : 99 % Oxygen Therapy : Room air Actual Weight : 90.1 kg(Converted to: 198 lb 10 oz) Weight Source : Standing scale Dosing Weight Clinic : 90.1 kg SHIRLEY TATE LPN - 04/03/2016 15:39 CDT General Info Information Given By : Patient, Mother Preferred Communication Mode : Verbal Languages : [place] Is Patient Female and 13-50 no hysterectomy : Yes Status : Patient denies Are you ? : No SHIRLEY TATE LPN - 04/03/2016 15:39 CDT Subjective Pain Symptoms : No SHIRLEY TATE LPN - 04/03/2016 15:39 CDT Dependent Habits Exposure to Tobacco Smoke : Care provider denies smoking in home, Other: non-smoker Smoking Status : Never smoker Tobacco 2A : No Tobacco Use/Currently Using : No Tobacco Use/Last 30 Days : No Tobacco Use/Last 12 months : No Alcohol Use : No SHIRLEY TATE LPN - 04/03/2016 15:39 CDT Caffeine Use Grid Caffeine Use : Current Type : Soft drinks Frequency : Occasionally Amount : very rare SHIRLEY TATE LPN - 04/03/2016 15:39 CDT Source: [employer] Document Id: [id number] CDT!40 documented in this encounter Plan of Treatment Not on filedocumented as of this encounter Visit Diagnoses Not on filedocumented in this encounter
--- OUTSIDE RECORDS SUMMARY | 2022-03-28 15:50 | XMS_ITS | Encounter Summary ---
:2000 Author Organization [facility] Address [address] [place] [address] Care Team Providers Name Role Phone Unavailable Primary Care Provider Unavailable Encounter Details Date Type Department Care Team Description 11/25/2015 Hospital Encounter HX [facility] Alyssa Dodge, ADOLESCENT COORDINATOR, C.N.P. [address] [place] [address] (Wo rk) Social History Tobacco [...] How often do you attend hindu or mandaeism services? 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 documented as of this encounter Progress Notes Alyssa Thomas APRN, C.NMike - 11/25/2015 4:42 PM CDT Clinic Full Note CHIEF COMPLAINT/REASON FOR VISIT Right ankle pain off and on HISTORY OF PRESENT ILLNESS Patient presents to the clinic with her Mom for a note excusing her from physical education for thenext 2 weeks. She has a history of a right ankle fracture through the growth place 6 years ago. Since then she has been prone to spraining her ankle. She sprained her ankle about 3 weeks ago. Since then her ankle is getting better but keeps getting re-injured during gym. She has been icing her ankle. She did go through physical therapy a few years ago on the right ankle. She knows which exercises to do to help strengthen the ankle. She does wear a stretchy ankle brace, but it is not very helpful. She is most concerned because she is running a 5K in December and wants her ankle healed by then. MEDICATIONS Dexedrine Spansule 5 mg oral capsule, [...] tablet, 1 tab(s), PO, Daily, 3 refills ZyrTEC 10 mg oral tablet, 10 mg, 1 tab(s), PO, Daily ALLERGIES NKA PAST MEDICAL HISTORY Chronic Anxiety NOS Disorder Attention Deficit Hyperactive (ADHD) Disorder Autism Spectrum Historical Hip pain-swelling PROCEDURES/SURGICAL HISTORY Colonoscopy (05/30/2011), Esophagogastroduodenoscopy (05/30/2011). SOCIAL HISTORY Date Time: 11/25/2015 15:51 Tobacco: Smoking Status: Never smoker Exposure: Care provider denies smoking in home, Other: non-smoker Alcohol: Use: No Results Found Recreational Drugs: Use: No Results Found Type: No Results Found FAMILY HISTORY Mother: Negative:;;;;;;;;;;;;;;;;;;;;;; SYSTEMS REVIEW Denies numbness or tingling. VITAL SIGNS T: 36.6 ??C (Core) HR: 66 BP: 108 / 74 SpO2: 98% WT: 91.9 kg PHYSICAL EXAMINATION GENERAL: Well developed, well nourished, alert and cooperative, and appears to be in no acute distress. LUNGS: Regular rate and rhythm of breathing. Non-labored. RIGHT ANKLE: No swelling, erythema, or warmth. Full ROM of joint. Dorsalis pulse 2+. Mild pain withpalpation along lateral aspect of ankle. SKIN: Skin normal color, texture, and turgor with no lesions or eruptions. IMPRESSION/REPORT/PLAN 1. Sprain Ankle Subsequent R Ordered: I think it is reasonable for her to continue with light activity in gym. No running or contact sports. Patient is encouraged to continue with exercises to strengthen right ankle. Patient is given a figure 8 ankle brace in clinic today. I encourage her to wear this for the next few weeks. I recommend icing the area for 15 minutes multiple times per day. All of Mom's questions were answered. Mom is agreeable with plan outlined above. Patient will return to clinic if symptoms do not improve as expected or become worse. Electronically Signed By: ALYSSA THOMAS CNP On: 11/29/2015 09:02 AM Source: [facility] POWERCHART Document Id: [id number] documented in this encounter Miscellaneous Notes Miscellaneous - Alyssa Thomas APRN, C.N.P. - 12/14/2015 1:21 PM CDT Custom Result Letter December 14, 2015 FARHAD NEGRETE [address] [place] [id number] Dear FARHAD NEHRING, Farhad Nehring is prescribed Dextroamphetamine 15 mg every morning for ADHD. If you have further questions please contact me at [phone]. Sincerely, ALYSSA THOMAS [address] [place] [address] [id number] Electronic Signature Electronically Signed By: ALYSSA THOMAS CNP On: December 14, 2015 This document has images extracted. Source: [facility] Fleck Document Id: [id number] Electronically signed by [facility] Allergy And Immunology Specialist [id number] at 12/09/2016 1:17 PM CDT Miscellaneous - Ana Matias - 12/09/2015 4:[address] Bird-Pt needs letter sent to school stating that pt is on ADHD med Document Contains Addenda Addendum by AGUSTINA LOCKE LPN on December 14, 2015 13:25:08 CDT Called patient's mom and verbalized letter done. Mom requesting to picker and packer letter. Placed at front desk manager. Addendum by ALYSSA THOMAS CNP on December 14, 2015 13:23:01 CDT From: ALYSSA THOMAS CNP To: [facility] Nurse; Sent: 12/14/2015 13:23:01 CDT Subject: RE: Dr. Skaggs needs letter sent to school stating that pt is on ADHD med Please let Mom know I wrote note. She may pick it up if needed. We can also fax the letter if she would like. Choi SF Addendum by ELEN PHOENIX RN on December 09, 2015 16:41:15 CDT From: ELEN PHOENIX RN ([facility] Nurse) To: ALYSSA THOMAS CNP; Sent: 12/09/2015 16:41:15 CDT Subject: FW: Dr. Skaggs needs letter sent to school stating that pt is on ADHD med Addendum by ISMAEL SPRINGER RN on December 09, 2015 16:33:29 CDT From: ISMAEL SPRINGER RN ([facility] Nurse) To: [facility] Nurse; Sent: 12/09/2015 16:33:29 CDT Subject: FW: Dr. Bird-Pt needs letter sent to [facility] stating that pt is on ADHD med From: ANA MATIAS To: [facility] Nurse; Sent: 12/09/2015 16:27:12 CDT Subject: Dr. Bird-Pt needs letter sent to [facility] stating that pt is on ADHD med If you need a prescription refill please call your pharmacy. Please allow 3 business days for processing. Call Center Template: ?? May we leave a message for you on this phone? yes ?? What can I help you with today?Pt needs letter sent to [facility] in [place] stating that pt is on ADHD medication for teacher/team. Pt mother has another meeting with school on 12/13 at 2:45pm and needs letter for meeting. Please give mother a call with any questions. ?? If Medication Refill: o What is the medication? o What pharmacy do you use? o Have you contacted your pharmacy regarding this request? I will send this information to the appropriate staff member who will look into your concern. If thenurse needs to talk to you he or she will call you back within two hours. Thank you for calling [facility]. Source: [facility] POWERCHART Document Id: [id number] Electronically signed by L[facility] Allergy And Immunology Specialist [id number] at 12/09/2016 1:17 PM CDT Miscellaneous - Alyssa Thomas APRN, C.N.P. - 11/25/2015 4:42 PM CDT Ambulatory Discharge Medication List [place] [address] [place], [place] [phone] Visit Information Name: FARHAD NEGRETE [facility] Number: [id number] Visit Date: 11/25/2015 16:42:27 Attending Provider: ALYSSA THOMAS CNP Primary Care Provider: MELANIA BENITEZ MD NATHANIELFARHAD CISNEROS has been given the following list of [...] the Following Medications: Medication list as of 11-25-15 16:42 Attention: If you have any medications [...] Electronically Signed By: ALYSSA THOMAS CNP Signed On:25-NOV-2015 16:42:26 Additional Information: Source: [facility] POWERCHART Document Id: [id number] Miscellaneous - Alyssa Thomas APRN, C.N.P. - 11/25/2015 4:42 PM CDT Ambulatory Patient Summary [address] [id number] Visit Information Name: FARHAD NEGRETE [facility] Number: [id number] Current Date: 11/25/2015 16:42:28 Physicians Attending Provider: ALYSSA THOMAS CNP Primary [...] the Following Medications: Medication list as of 11-25-15 16:42 Attention: If you have any medications [...] Electronically Signed By: ALYSSA THOMAS CNP Signed On:25-NOV-2015 16:42:26 Your Allergies & Intolerances Substance Reaction Symptoms Category Comments No Known Allergies Drug Your Problem List Problem Status Onset Comments Disorder Attention Deficit Hyperactive (ADHD) Active Disorder Autism Spectrum Active Anxiety NOS Active Your Upcoming Appointments Date Time Location Provider 04/03/2016 15:15 [facility] Alyssa Thomas CNP Attention: Contact your local Clinic if further [...] if you dont have one. Go to [email or web address] and click on Create Your Account. Then, follow the directions to complete the online form. Youll be asked for your [facility] number which you can find at the top of this document. Your Goals/Additional instructions: Source: [employer] Document Id: [id number] Miscellaneous - Alyssa Thomas APRN, C.N.P. - 11/25/2015 4:03 PM CDT School Excuse November 25, 2015 FARHAD NEGRETE [address] [facility] [id number] Dear FARHAD NEGRETE, You were examined in my office on: 11/25/2015 To return to school today: ( x ) Yes ( _ ) No To return to regular activity: ( _ ) Yes ( x ) No To have modified activity: ( x ) Yes ( _ ) No As follows: ( x ) No contact sports ( x ) May do upper body activities ( _ ) May do lower body activities ( x ) May do walking program ( _ ) No physical activity ( _ ) Other: _ Duration of activity restriction: ( _ ) Days ( 2 ) Weeks ( _ ) Months ( _ ) Other: _ Physical Therapy referral: ( _ ) Yes ( _ ) No School Medication / Procedure Form completed: ( _ ) Yes ( _ ) Not necessary Notes: _ Sincerely, ALYSSA THOMAS [address] [place] [address] Electronic Signature Electronically Signed By: ALYSSA THOMAS CNP On: November 25, 2015 This document has images extracted. Source: [facility] POWERCHART Document Id: [id number] Electronically signed by [facility] Allergy And Immunology Specialist [id number] at 12/09/2016 1:17 PM CDT Miscellaneous - Agustina Locke L.P.N. - 11/25/2015 3:51 PM CDT Pediatric Linoleum Tile Layer Intake/History Pediatric Linoleum Tile Layer Intake/History Entered On: 11/25/2015 15:52 CDT Performed On: 11/25/2015 15:51 CDT by AGUSTINA LOCKE LPN Intake Chief Complaint : Right ankle pain off and on fx growth plate 6 yrs ago Needs note for excuse from phyed Temperature Core : 36.6 DegC(Converted to: 97.9 DegF) Peripheral Pulse Rate : 66 /min Systolic Blood Pressure : 108 mmHg Diastolic Blood Pressure : 74 mmHg NIBP Mean : 85 mmHg SpO2 : 98 % Actual Weight : 91.9 kg(Converted to: 202 lb 10 oz) Dosing Weight Clinic : 91.9 kg AGUSTINA LOCKE LPN - 11/25/2015 15:51 CDT General Info Languages : Prydeinig Is Patient Female and 13-50 no hysterectomy : Yes Status : Patient denies Are you ? : No AGUSTINA LOCKE LPN - 11/25/2015 15:51 CDT Subjective Pain Symptoms : Yes AGUSTINA LOCKE LPN - 11/25/2015 15:51 CDT Pain Scale Pain Scale Verbal 0-10 : Open AGUSTINA LOCKE LPN - 11/25/2015 15:51 CDT Pain Pain Assessment Grid Pain 1 Location : Ankle Laterality : Right Intensity : 5 AGUSTINA LOCKE LPN - 11/25/2015 15:51 CDT Dependent Habits Exposure to Tobacco Smoke : Care provider denies smoking in home, Other: non-smoker Smoking Status : Never smoker Tobacco 2A : No Tobacco Use/Currently Using : No Tobacco Use/Last 30 Days : No Tobacco Use/Last 12 months : No AGUSTINA LOCKE LPN - 11/25/2015 15:51 CDT Caffeine Use Grid Amount : very rare AGUSTINA LOCKE LPN - 11/25/2015 15:51 CDT Source: [facility] POWERCHART Document Id: [id number] CDT!36 documented in this encounter Plan of Treatment Not on filedocumented as of this encounter Visit Diagnoses Not on filedocumented in this encounter
--- OUTSIDE RECORDS SUMMARY | 2022-03-28 15:50 | XMS_ITS | Encounter Summary ---
:1999 Author Organization [facility] Address [address] [place] [address] Care Team Providers Name Role Phone Unavailable Primary Care Provider Unavailable Encounter Details Date Type Department Care Team Description 08/09/2015 Hospital Encounter HX [facility]P Jesica Mehta i, DRY GOODS CLERK, C.N.P., [address] [facility], [facility] [address] [place], [place] [address] (Wo rk) Social History Tobacco [...] 07/21/2021 relatives? How often do you attend taoism or latter-day services? 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 documented as of this encounter Progress Notes Kody Moore APRN, C.N.P. - 08/09/2015 3:58 PM CST [id number] CHIEF COMPLAINT/REASON FOR VISIT Infection on buttock. HISTORY OF PRESENT ILLNESS Ruy is a 15-year-old female, brought in by her mother today for a followup to infection near her tailbone. About 5 days ago, Ruy started noticing pain to the area that mother checked a day or 2 later she noted no abnormalities to the site. On August 07, patient presented to urgent care where a quarter-sized area of infection was noted. She was placed on Bactrim twice daily for 10 days and told to follow up at this clinic to have the site drained. Now the patient and mother report the site has turned into a big bump. It opened on its own overnight, early this morning, draining bloody pus.It is feeling somewhat better. The patient and mother deny any history of capsule MRSA. Patient wishes for a note to excuse her from gym class. PAST MEDICAL/SURGICAL HISTORY Autism. ADHD. Dysmenorrhea. Anxiety. Colonoscopy and EGD in 2010. SOCIAL HISTORY No exposure to secondhand smoke in the home. Nonsmoker. MEDICATIONS Dexedrine spansule 15 mg daily. Lutera daily. Zyrtec 10 mg daily. ALLERGIES No known allergies. SYSTEMS REVIEW Review of systems per HPI. Last menstrual period was 07/27/2015. Patient's mother was requesting refills of control pills and her stimulant. All other systems negative at this time. VITAL SIGNS Temperature 36.6 degrees Celsius, heart rate 91, blood pressure 108/78, oxygen saturation 96% on room air, weight 89.9 kg. Pain rating 5/10 to the infection site. PHYSICAL EXAMINATION GENERAL: Ruy is alert and oriented, pleasant, in no acute distress. Good interaction with mother. SKIN: Warm and dry. To the superior aspect of the gluteal cleft mainly on the left cheek is a red, swollen abscess with fluctuance. There is a 1-2 mm opening to the medial aspect. Once the buttock cheeks are spread and pressure relieved on that site, an excess amount of bloody purulence drains from that opening. This site is very tender and warm to palpation. MUSCULOSKELETAL: Normal gait and station, normal posture. IMPRESSION/REPORT/PLAN Cellulitis with abscess to the buttock. PROCEDURE: After risks and benefits discussed with patient and mother and written consent obtained, Dr. Lopez and I elected to proceed with incision and drainage of the abscess. The patient was laid prone on the procedure table. Mother was present at her head to provide comfort and support. The name and date of patient reviewed prior to procedure. The site was prepped with chlorhexidine. Lidocaine 3 mL of 1% without epinephrine were injected to the site to provide anesthesia. A 1 cm incision was a made just lateral to the natural opening of the abscess. A hemostat was then used to extend the natural opening to promote further drainage from both sites. Some purulence, but mainly sanguinous drainage flowed. Using an 18-gauge needle, 10 mL of normal saline was used to irrigate the abscess pocket until no further purulent drainage expressed. The site was then reanesthetized with another 3 mL of 1% lidocaine without epinephrine. A 1/4-inch iodoform gauze was used to pack the site, leaving a 3 cm tail exposed. The site was then covered with two 4 x 4's and ABD pad. It was secured with tape. The patient was advised to leave the dressings in place until next visit. She was okay to shower, leaving the dressing in place. The patient tolerated procedure well. She was advised to continue the Bactrim as directed. She was also advised that she may use ibuprofen either 600 mg 4 times a day or 800 mg3 times a day with food for pain control. For severe pain, she was given Shumway 5/325 mg tablets to use 1/2 to 1 every 6 hours as needed for pain control, #5, with no refills. It was stressed to patientand mother to avoid any other medications that could endorse sleepiness and she is to avoid driving after taking this medication. A note was given to excuse her from gym class for the rest of this week. She will follow up with Dr. Lopez tomorrow for an exchange of the packings and if necessary a followup with myself again in 2 days for another packing exchange. Followup in the meantime for worsening symptoms. The patient and mother were advised to contact her PCP for a refill of control and her stimulant medications. All questions of patient and mother answered. Both stated understanding and agreement with the current plan. Kody Moore APRN, C.N.P./pos Electronically Signed By: KODY MOORE SALES PROMOTION REPRESENTATIVE On: 08/14/2015 03:38 PM Source: [facility] MHSDOLBEYNONRADSYS Document Id: [id number] GER REGULATORY documented in this encounter Miscellaneous Notes Miscellaneous - Kody Moore APRN, C.N.P. - 08/10/2015 5:53 AM CST Ambulatory Patient Summary [address] [id number] Visit Information Name: RUY NEGRETE [facility] Number: [id number] Current Date: 08/10/2015 05:53:58 Physicians Attending Provider: KODY MOORE NP Primary [...] once a day (in the morning) HYDROcodone-acetaminophen (Shumway 5 mg-325 mg oral tablet) 1 Tablet(s), Oral, every 6 hours as neededfor Pain No more than 4,000mg acetaminophen/24hrs New Routed to Printer levonorgestrel-ethinyl estradiol (Lutera 100 mcg-20 mcg oral tablet) 1 Tablet(s), Oral, once a day For further refills, please follow up with PCP Stop Taking the Following Medications: Medication list as of 08-10-15 05:53 Attention: If you have any medications at [...] of emergency. Electronically Signed By: KODY MOORE SALES PROMOTION REPRESENTATIVE Signed On:10-AUG-2015 05:53:53 Your Allergies & Intolerances Substance Reaction Symptoms Category Comments No Known Allergies Drug Your Problem List Problem Status Onset Comments Disorder Attention Deficit Hyperactive (ADHD) Active Disorder Autism Spectrum Active Anxiety NOS Active Your Upcoming Appointments Date Time Location Provider 08/10/2015 13:45 MARK Lopez MD, [place] Attention: Contact your local Clinic if further [...] if you dont have one. Go to [email or web address] and click on Create Your Account. Then, follow the directions to complete the online form. Youll be asked for your [facility] number which you can find at the top of this document. Your Goals/Additional instructions: Source: [facility] POWERCHART Document Id: [id number] GER REGULATORY Miscellaneous - Kody Moore APRN, C.N.P. - 08/10/2015 5:53 AM CST Ambulatory Discharge Medication List [place] - [address] [id number] Visit Information Name: RUY NEGRETE [facility] Number: [id number] Visit Date: 08/10/2015 05:53:58 Attending Provider: KODY MOORE NP Primary Care [...] once a day (in the morning) HYDROcodone-acetaminophen (Shumway 5 mg-325 mg oral tablet) 1 Tablet(s), Oral, every 6 hours as neededfor Pain No more than 4,000mg acetaminophen/24hrs New Routed to Printer levonorgestrel-ethinyl estradiol (Lutera 100 mcg-20 mcg oral tablet) 1 Tablet(s), Oral, once a day For further refills, please follow up with PCP Stop Taking the Following Medications: Medication list as of 08-10-15 05:53 Attention: If you have any medications at [...] of emergency. Electronically Signed By: KODY MOORE SALES PROMOTION REPRESENTATIVE Signed On:10-AUG-2015 05:53:53 Additional Information: Source: [facility] POWERCHART Document Id: [id number] GER REGULATORY Miscellaneous - Kody Moore APRN, C.N.P. - 08/09/2015 5:24 PM CST Custom Result Letter 09 August 2015 RUY PENELOPE [address] [facility] [id number] Dear RUY NEGRETERuy is excused from any participation in physical activity for gym class for the rest of this week. Thank you for your cooperation. Sincerely, KODY MOORE [address] [place] [id number] Electronic Signature Electronically Signed By: KODY MOORE SALES PROMOTION REPRESENTATIVE On: 09 August 2015 This document has images extracted. Source: [facility] POWERCHART Document Id: [id number] Miscellaneous - Bernadette Mills C.M.A. - 08/09/2015 4:12 PM CST Pediatric Fixed Income Trading Vice President Intake/History Pediatric Fixed Income Trading Vice President Intake/History Entered On: 08/09/2015 16:17 MANAGER REGULATORY Performed On: 08/09/2015 16:12 MANAGER REGULATORY by BERNADETTE MILLS [facility] Intake Chief Complaint : Patient presents with bacterial infection near her tailbone, she was given antibiotics twice daily for 10 days. It ruptured on its own last night. Patient also would like medication refilled, normally seen in [place]. Would like excuse for gym Wed. Temperature Core : 36.6 DegC(Converted to: 97.9 DegF) Peripheral Pulse Rate : 91 /min (HI) Systolic Blood Pressure : 108 mmHg Diastolic Blood Pressure : 78 mmHg NIBP Mean : 88 mmHg BP Location : Right upper extremity Blood Pressure Cuff Size : Regular SpO2 : 96 % Oxygen Therapy : Room air Actual Weight : 89.9 kg(Converted to: 198 lb 3 oz) Weight Source : Standing scale Dosing Weight Clinic : 89.9 kg BERNADETTE MLILS [facility] - 08/09/2015 16:12 MANAGER REGULATORY General Info Accompanied By : Mother Information Given By : Patient, Mother Information Given by Names : Joya Preferred Communication Mode : Verbal Languages : Bulgarian Is Patient Female and 13-50 no hysterectomy : Yes Status : Patient denies Are you ? : No BERNADETTE MILLS CMA - 08/09/2015 16:12 MANAGER REGULATORY Subjective Pain Symptoms : Yes BERNADETTE MILLS CMA - 08/09/2015 16:12 MANAGER REGULATORY Pain Scale Pain Scale Verbal 0-10 : Open BERNADETTE MILLS [facility] - 08/09/2015 16:12 MANAGER REGULATORY Pain Pain Assessment Grid Pain 1 Location : Buttock Intensity : 5 BERNADETTE MILLS [facility] 08/09/2015 16:12 MANAGER REGULATORY Dependent Habits Exposure to Tobacco Smoke : Care provider denies smoking in home Smoking Status : Never smoker Tobacco 2A : No Tobacco Use/Currently Using : No Tobacco Use/Last 30 Days : No Tobacco Use/Last 12 months : No BERNADTETE MILLS [facility] - 08/09/2015 16:12 MANAGER REGULATORY Caffeine Use Grid Amount : very rare BERNADETTE MILLS [facility] - 08/09/2015 16:12 MANAGER REGULATORY [facility] Document Id: [id number] MANAGER REGULATORY!43 GER REGULATORY documented in this encounter Plan of Treatment Not on filedocumented as of this encounter Visit Diagnoses Not on filedocumented in this encounter
--- OUTSIDE RECORDS SUMMARY | 2022-03-28 15:50 | XMS_ITS | Encounter Summary ---
:2000 Author Organization [facility] Address [address] [place] [address] Care Team Providers Name Role Phone Unavailable Primary Care Provider Unavailable Encounter Details Date Type Department Care Team Description 08/12/2015 Hospital Encounter HX [facility] Jesica Mehta i, BRAKES INSPECTOR, C.N.P., [address] [facility], [facility] [address] [place], [place] [address] (Wo rk) Social History Tobacco [...] 07/21/2021 relatives? How often do you attend druze or alevism services? Never 07/21/2021 Do you belong to any clubs or organizations such as No 07/21/2021 druze groups, unions, fraternal or athletic groups, or [...] place to sleep or slept in a mcc (including now)? Sex Assigned at Date Recorded Female 07/21/2021 2:31 PM AOC DIRECTOR INTELLIGENCE OFFICER documented as of this encounter Last Filed Vital Signs Vital Sign Reading Time Taken Comments Blood Pressure - - Pulse - - Temperature - - Respiratory Rate - - Oxygen Saturation - - Inhaled Oxygen Concentration - - Weight 90 kg (198 lb 6.6 oz) 08/12/2015 3:47 PM AOC DIRECTOR INTELLIGENCE OFFICER Height - - Body Mass Index 30.17 08/11/2015 9:13 AM AOC DIRECTOR INTELLIGENCE OFFICER Body Mass Index Percentile 96.02 % 08/12/2015 3:47 PM CS T Growth Chart: [facility] (Girls, 2-20 Years) documented in this encounter Medications at Time of Discharge Medication Sig Dispensed Refills Start Date End Date cetirizine (ZyrTEC) 10 mg Take 1 tablet by 0 07/17 tablet mouth daily. documented as of this encounter Progress Notes Kody Moore, BARBER, C.N.P. - 08/12/2015 3:42 PM CST [id number] CHIEF COMPLAINT/REASON FOR VISIT Pack wound. HISTORY OF PRESENT ILLNESS Ruy is a 15-year-old female, who presents today for a recheck of the coccygeal wound. She has taken 1 Lakebay prior to visit today in anticipation of the pain. Otherwise, without complaints. MEDICATIONS Unchanged from last visit. ALLERGIES No known allergies. VITAL SIGNS Temperature 36.8 degrees Celsius, heart rate 83, blood pressure 120/82, oxygen saturation 100% on room air, weight 90 kg. PHYSICAL EXAMINATION GENERAL: Ruy is alert and oriented. In no acute distress. SKIN: Warm and dry. There is still firm tissue to the left gluteal cleft, but the fluctuance is gone. It is no longer tender. No more redness or heat. The opening has centralized. There is still a small amount of purulence. Measurement reveals still approximately 1 cm in depth. A small amount of malodorous purulence was present on packing when removed. MUSCULOSKELETAL: Normal gait and station. Normal posture. IMPRESSION/REPORT/PLAN Coccygeal wound check. With mother standing by, the wound was gently repacked with quarter-inch iodoform gauze with a 3 cm tail left. It was then dressed with 4x4s and covered with ABDs and tape. Discussed with the patient and mother that I am concerned that this could actually be a pilonidal cyst dueto the maintenance of depth for the past 3 days. Will repack today and see what it looks like tomorrow since there still continues to be some drainage. I did consult with Dr. Lopez once again who recommended leaving the packing out over the weekend and rechecking on Sunday. Will discuss this with the patient and mother tomorrow. Otherwise, they have had a followup appointment tomorrow morning to remove the packing and re-evaluate. If the wound does not close, will refer to General Surgery for further evaluation. All questions of the patient and mother answered. Both stated understanding and agreement with current plan. Kody Moore APRN, C.N.P./pos Electronically Signed By: KODY MOORE MOTOR MAN On: 08/14/2015 03:39 PM Source: [facility] [id number] Document Id: [id number] DIRECTOR INTELLIGENCE OFFICER documented in this encounter Miscellaneous Notes Miscellaneous - Kody Moore APRN, C.N.P. - 08/12/2015 5:07 PM CST Ambulatory Patient Summary [address] [id number] Visit Information Name: RUY NEGRETE [facility] Number: [id number] Current Date: 08/12/2015 17:07:15 Physicians Attending Provider: KODY MOORE NP Primary [...] once a day (in the morning) HYDROcodone-acetaminophen (Lakebay 5 mg-325 mg oral tablet) 1 Tablet(s), Oral, every 6 hours as neededfor Pain No more than 4,000mg acetaminophen/24hrs levonorgestrel-ethinyl estradiol (Lutera 100 mcg-20 mcg oral tablet) 1 Tablet(s), Oral, once a day For further refills, please follow up with PCP Stop Taking the Following Medications: Medication list as of 08-12-15 17:07 Attention: If you have any medications at [...] of emergency. Electronically Signed By: KODY MOORE MOTOR MAN Signed On:12-AUG-2015 17:07:10 Your Allergies & Intolerances Substance Reaction Symptoms Category Comments No Known Allergies Drug Your Problem List Problem Status Onset Comments Disorder Attention Deficit Hyperactive (ADHD) Active Disorder Autism Spectrum Active Anxiety NOS Active Your Upcoming Appointments Date Time Location Provider 08/13/2015 09:15 MARK Moore NP, Kody Barajas Attention: Contact [...] if you dont have one. Go to [email or web address] and click on Create Your Account. Then, follow the directions to complete the online form. Youll be asked for your [facility] number which you can find at the top of this document. Your Goals/Additional instructions: Source: [facility] POWERCHART Document Id: [id number] DIRECTOR INTELLIGENCE OFFICER Miscellaneous - Kody Moore APRN, C.N.P. - 08/12/2015 5:07 PM CST Ambulatory Discharge Medication List [place] - [address] [id number] Visit Information Name: RUY NEGRETE [facility] Number: [id number] Visit Date: 08/12/2015 17:07:14 Attending Provider: KODY MOORE NP Primary Care [...] once a day (in the morning) HYDROcodone-acetaminophen (Lakebay 5 mg-325 mg oral tablet) 1 Tablet(s), Oral, every 6 hours as neededfor Pain No more than 4,000mg acetaminophen/24hrs levonorgestrel-ethinyl estradiol (Lutera 100 mcg-20 mcg oral tablet) 1 Tablet(s), Oral, once a day For further refills, please follow up with PCP Stop Taking the Following Medications: Medication list as of 08-12-15 17:07 Attention: If you have any medications at [...] of emergency. Electronically Signed By: KODY MOORE MOTOR MAN Signed On:12-AUG-2015 17:07:10 Additional Information: Source: [facility] POWERCHART Document Id: [id number] DIRECTOR INTELLIGENCE OFFICER Miscellaneous - Bernadette Mills C.MMaryellen - 08/12/2015 3:47 PM CST Pediatric Production Welder Intake/History Pediatric Production Welder Intake/History Entered On: 08/12/2015 15:49 AOC DIRECTOR INTELLIGENCE OFFICER Performed On: 08/12/2015 15:47 AOC DIRECTOR INTELLIGENCE OFFICER by BERNADETTE MILLS [facility] Intake Chief Complaint : Patient presents for wound check. Temperature Core : 36.8 DegC(Converted to: 98.2 DegF) Peripheral Pulse Rate : 83 /min Systolic Blood Pressure : 120 mmHg Diastolic Blood Pressure : 82 mmHg NIBP Mean : 95 mmHg BP Location : Right upper extremity Blood Pressure Cuff Size : Regular SpO2 : 100 % Oxygen Therapy : Room air Actual Weight : 90.0 kg(Converted to: 198 lb 7 oz) Weight Source : Standing scale Dosing Weight Clinic : 90 kg BERNADETTE MILLS CMA - 08/12/2015 15:47 AOC DIRECTOR INTELLIGENCE OFFICER General Info Accompanied By : Mother Information Given By : Patient, Mother Preferred Communication Mode : Verbal Languages : Amharic Is Patient Female and 13-50 no hysterectomy : Yes Status : Patient denies Are you ? : No BERNADETTE MILLS CMA - 08/12/2015 15:47 AOC DIRECTOR INTELLIGENCE OFFICER Subjective Pain Symptoms : No BERNADETTE MILLS CMA - 08/12/2015 15:47 AOC DIRECTOR INTELLIGENCE OFFICER Dependent Habits Exposure to Tobacco Smoke : Care provider denies smoking in home Smoking Status : Never smoker Tobacco 2A : No Tobacco Use/Currently Using : No Tobacco Use/Last 30 Days : No Tobacco Use/Last 12 months : No BERNADETTE MILLS CMA - 08/12/2015 15:47 AOC DIRECTOR INTELLIGENCE OFFICER Caffeine Use Grid Amount : very rare BERNADETTE MILLS CMA - 08/12/2015 15:47 AOC DIRECTOR INTELLIGENCE OFFICER Source: [facility] POWERCHART Document Id: [id number] AOC DIRECTOR INTELLIGENCE OFFICER!35 DIRECTOR INTELLIGENCE OFFICER documented in this encounter Plan of Treatment Not on filedocumented as of this encounter Visit Diagnoses Not on filedocumented in this encounter
--- OUTSIDE RECORDS SUMMARY | 2022-03-28 15:50 | XMS_ITS | Encounter Summary ---
:2000 Author Organization [facility] Address [address] [place] [address] Care Team Providers Name Role Phone Unavailable Primary Care Provider Unavailable Encounter Details Date Type Department Care Team Description 10/16/2016 Hospital Encounter HX NO MAPPING Ynes Leach [address] [place], [place] [phone] Social History Tobacco Use Types Packs/Day Years [...] 07/21/2021 relatives? How often do you attend restoration or nondenominational services? Never 07/21/2021 Do you belong to any clubs or organizations such as No 07/21/2021 restoration groups, unions, fraternal or athletic groups, or [...] at Date Recorded Female 07/21/2021 2:31 PM POLICE BOOKING OFFICER documented as of this encounter Medications [...]
--- OUTSIDE RECORDS SUMMARY | 2022-03-28 15:51 | XMS_ITS | Encounter Summary ---
:2000 Author Organization [facility] Address [address] [place] [address] Care Team Providers Name Role Phone Unavailable Primary Care Provider Unavailable Encounter Details Date Type Department Care Team Description 04/01/2014 Hospital Encounter HX [facility] Johann Hong D.O. [address] [place] [address] (Wo rk) Social History Tobacco [...] 07/21/2021 relatives? How often do you attend mosque or cheondoism services? Never 07/21/2021 Do you belong to any clubs or organizations such as No 07/21/2021 mosque groups, unions, fraternal or athletic groups, or [...] or slept in a assisted (including now)? 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 (Girls, 2-20 Years) documented in this encounter Progress Notes Johann Agee D.O. - 04/01/2014 3:24 PM CDT [id number] CHIEF COMPLAINT/REASON FOR VISIT Several issues. 1. ADHD medication refill. Ruy has been on stimulant basically since the 6th grade. She is now a 9th grader. She has done pretty well in school. The dextroamphetamine 15 mg daily seems to manage hersymptoms of hyperactivity pretty well and keeps her engaged. She also has an autism spectrum disorder, for which she meets with a group for an hour and a half once a week, and this may be going to one-on-one sessions. She used to get her medication filled by Dr. Marino in [place], but this is too far to drive so she wants to transition this care here. The medicine has not caused any problems with blood pressure, heart rate, lightheadedness, dizziness, appetite, weight loss. There is no family history of sudden cardiac . 2. Plantar warts. She has multiple warts on the bottom of the left foot. A couple of them are painful. They have not tried any over the counter treatments and are wondering what can be done. 3. Left leg pain. She motions that she has pain in the mid medial tibia anteriorly for about 4 months. It happened after an injury when she was going down the stairs and landed wrong, about 4 months ago. She continues to have pain, especially with running or jumping activities, and is limiting her in phys ed. She has not noticed any swelling or bruising. There is no nocturnal symptoms. No fevers, chills, or night sweats. ALLERGIES None. MEDICATIONS Dextroamphetamine 5 mg 3 capsules daily. Oral contraceptive pill daily to help with menses, cramping. Cetirizine 10 mg daily OTC for seasonal allergies. SOCIAL HISTORY Lives with mother and an older brother. Biological father lives elsewhere and she goes to his house every other weekend. FAMILY HISTORY Maternal grandfather and maternal uncle both committed suicide. Brother had depression for a while. SYSTEMS REVIEW REVIEW OF SYSTEMS: Ruy reports no trouble with being hopeless, helpless, depressed, tearful, anxious. She feels that her ADHD is quite stable at this time. She denies chest pains, palpitations, shortness of breath. Her activity is currently limited due to remote pain. PHYSICAL EXAMINATION VITAL SIGNS: On exam, she is afebrile. Pulse 69, blood pressure 118/60, O2 sat is 98%. HEART: Sounds are regular. No murmurs. LUNGS: Clear. Breath sounds equal. No wheezes, rales, or rhonchi. MUSCULOSKELETAL: Left mid tibia medially is tender without mass, swelling, ecchymosis or deformity. The knee and ankle joints appear to be okay. SKIN: She has a cluster of plantar warts on the sole of left foot. There is a focused cluster at the 2nd or 3rd metatarsophalangeal joint area. NEUROPSYCHIATRIC: No focal deficits. Pupils equal, reactive. Speech is clear. Well behaved. No fidgeting. Well groomed. No bizarre behavior. IMPRESSION/REPORT/PLAN ASSESSMENT: 1. Attention deficit hyperactivity disorder. Plan: Family will request records and I will refill herdextroamphetamine 5 mg 3 capsule daily, #90 with no refills. 2. Left mid tibia pain. X-rays were done. No fracture is noted. No deformities. Recommend orthopedicconsult given the 4 month duration of symptoms. She has not improved with analgesics. Note for school limiting her activities was provided. 3. Plantar warts, left foot x12. Treated with 3 freeze-thaw cycles using liquid nitrogen, which she tolerated well. Johann Agee D.O./pos Electronically Signed By: JOHANN AGEE DO On: 04/07/2014 05:28 PM Modified by and Electronically Signed by: JOHANN AGEE DO On: 04/07/2014 05:28 PM Source: [facility] MHSDOLBEYNONRADSYS Document Id: [id number] documented in this encounter Nursing Notes Johann Agee D.O. - 04/01/2014 4:10 PM CDT Ambulatory Patient Education The following Patient Education Materials have been given to the patient: Patient Education Materials: Pediatrics ADHD and Your Family Pediatrics ADHD and Your Family Taking care of a child with ADHD might cause other relationships in the household to suffer. This doesnt have to happen. Each member of the family can help build lasting bonds. That way, life can get better for everyone. How You May Feel If you have a child with ADHD, you may feel guilty, worried, and tired. Try to get enough rest and do some things you enjoy. Ask family and friends for support. You and Your Partner Its easy to blame each other. You may not agree on the basilio diagnosis, treatment, or discipline. Finding answers isnt easy, but make an effort to talk each day. Now is the time to build new trust within your relationship. Nurturing Your Other Children You may devote a lot of time and effort to the child with ADHD. As a result, your other children mayfeel left out. Do your best to spend time with your other children, too. Instead of using up your energy, you may find that these moments help build your reserves. Parents Role ?? For yourself: Recharge and relax. Free up some time by finding a caregiver who understands ADHD. Ask a counselor or your support group about people who might be able to supervise your child. ?? For your marriage: Try to respect any differing opinions. Also, spend time alone as a couple. Talk about things other than your child and coping with ADHD. ?? For your other children: Do things with them. Ask about their hobbies, desires, and fears. Let them know they matter to you. Then help them relate to the child with ADHD. ?? Reward everyones efforts to act like a family. ?? Counseling may help you manage your stress. It can also help strengthen your marriage and resolvefamily conflicts. The Future Holds Promise Your basilio ADHD symptoms are likely to change and evolve as he or she matures. But with time and ongoing guidance, your child can learn to manage his or her traits. Many adults with ADHD are happy and successful. ?? [id number] Yolande Sanders, [address] [place] [address], [place] [address]. All rights reserved. This information is not intended as a substitute for professional medical care. Always follow your healthcare professional's instructions. This document has images extracted. Please consider using [email or web address] for all your patient education needs. Source: [facility] POWERCHART Document Id: [id number] documented in this encounter Miscellaneous Notes Telephone Encounter - Yudy Shukla - 04/03/2014 9:07 AM CDT *Phone Message Document Contains Addenda Addendum by BRITTANIE MANSFIELD on 06 April 2014 09:44:49 CDT Records sent to [facility]-Dr. Phoenix Lloyd at fax number [phone] 04/06. From: JOSE SHUKLA To: JOHANN AGEE DO; Cc: BRITTANIE MANSFIELD; Sent: 04/03/2014 09:07:24 CDT Subject: *Phone Message Caller is: ( ) Patient ( ) Mother ( ) Father ( ) Spouse ( ) Daughter ( ) Son ( ) Pharmacy ( ) Other: Physician: Template of screen: Location of appointment: [facility] Provider scheduled with:DR PHOENIX KAM Date and time of appt:SundayMar 810AM Reason for appt:LFT LEG PAIN How patient was notified: ( ) in person ( X ) via phone ( ) left message ( ) sent letter Additional Comments:MOM WILL OUTPATIENT SERVICES DIRECTOR KIRTI GU PLS SEND REPORTS Records to be faxed to:[facility] NUM[facility] [phone] Patient MRN #: Reason for Call: Message: PATIENTS KNOWS OF APPT Advice/Action: Source used: ( ) Verbalizes understanding of instructions ( ) Instructed to call back if symptoms worsen or do not resolve ( ) Refused to see provider ( ) Appointment Scheduled ( ) OK to leave message on voice mail ( ) Patient told to expect return call: ( ) today ( ) tomorrow ( ) next work day ( ) Patient's email ( ) Patient told physician out of office, will call upon return call on ( ) ( ) Patient told physician out of office, routed to other physician ( ) Other ( ) Call back telephone number ( ) Call back cell phone number ( ) Source: [facility] Proximetry Document Id: [id number] Electronically signed by Conversion, [facility] Geographic Area Intelligence Officer [id number] at 12/12/2016 5:32 PM CDT Miscellmeryl - Johann Agee D.O. - 04/01/2014 4:55 PM CDT School Excuse 01 April 2014 RUY NEGRETE [address] [place] [id number] Dear RUY NEGRETE, You were examined in my office on: 04/01/14 To return to school today: ( X ) Yes ( _ ) No To return to regular activity: ( _ ) Yes ( X ) No To have modified activity: ( X ) Yes ( _ ) No As follows: ( X ) No contact sports ( X ) May do upper body activities ( _ ) May do lower body activities ( X ) May do walking program as tolerated. No high impact sports (running/jumping, etc..) ( _ ) No physical activity ( _ ) Other: _ Duration of activity restriction: Until seen by orthopedics Sincerely, JOHANN AGEE [address] [place] [id number] Electronic Signature Electronically Signed By: JOHANN AGEE DO On: 01 April 2014 This document has images extracted. Source: [facility] [employer]etry Document Id: [id number] Electronically signed by Conversion, [facility] Geographic Area Intelligence Officer [id number] at 12/12/2016 5:32 PM CDT Mark - Johann Agee D.O. - 04/01/2014 4:11 PM CDT Ambulatory Patient Summary [address] [id number] Visit Information Name: PENELOPE RUY ARANA [facility] Number: [id number] Current Date: 04/01/2014 16:11:00 Physicians Attending Provider: JOHANN AGEE DO Primary Care Provider: MELANIA BENITEZ MD RUY [...] the Following Medications: Medication list as of 04-01-14 16:10 Attention: If you have any medications at home that are not on this list, DO NOT take them until youcontact your provider for clarification. Give a copy of your medication list to your primary care provider. Update your medication list any time medications or doses are changed and carry your medication list at all times in case of emergency. Electronically Signed By: JOHANN AGEE DO Signed On:01-APR-2014 16:08:26 Your Allergies & Intolerances Substance Reaction Symptoms Category Comments No Known Allergies Drug Your Problem List Problem Status Onset Comments Hip pain-swelling Active 08/23/2013 Your Upcoming Appointments Date Time Location Provider No Appointments found Attention: Contact your local Clinic if further appointment detail needed. ADHD and Your Family Taking care of a child with ADHD might cause other relationships in the household to suffer. This doesnt have to happen. Each member of the family can help build lasting bonds. That way, life can get better for everyone. How You May Feel If you have a child with ADHD, you may feel guilty, worried, and tired. Try to get enough rest and do some things you enjoy. Ask family and friends for support. You and Your Partner Its easy to blame each other. You may not agree on the basilio diagnosis, treatment, or discipline. Finding answers isnt easy, but make an effort to talk each day. Now is the time to build new trust within your relationship. Nurturing Your Other Children You may devote a lot of time and effort to the child with ADHD. As a result, your other children mayfeel left out. Do your best to spend time with your other children, too. Instead of using up your energy, you may find that these moments help build your reserves. Parents Role ?? For yourself: Recharge and relax. Free up some time by finding a caregiver who understands ADHD. Ask a counselor or your support group about people who might be able to supervise your child. ?? For your marriage: Try to respect any differing opinions. Also, spend time alone as a couple. Talk about things other than your child and coping with ADHD. ?? For your other children: Do things with them. Ask about their hobbies, desires, and fears. Let them know they matter to you. Then help them relate to the child with ADHD. ?? Reward everyones efforts to act like a family. ?? Counseling may help you manage your stress. It can also help strengthen your marriage and resolvefamily conflicts. The Future Holds Promise Your basilio ADHD symptoms are likely to change and evolve as he or she matures. But with time and ongoing guidance, your child can learn to manage his or her traits. Many adults with ADHD are happy and successful. ?? [phone] [facility], [address] [place] [address]. All rights reserved. This information is not intended as a substitute for professional medical care. Always follow your healthcare professional's instructions. Your Goals/Additional instructions: This document has images extracted. Please consider using [employer] for all your patient education needs. Source: [facility] POWERCHART Document Id: [id number] Miscellaneous - Johann Agee D.O. - 04/01/2014 4:10 PM CDT Ambulatory Discharge Medication List [place] [place], [place] [phone] Visit Information Name: RUY NEGRETE [facility] Number: [id number] Visit Date: 04/01/2014 16:10:58 Attending Provider: JOHANN AGEE DO Primary Care Provider: MELANIA BENITEZ MD RUY [...] the Following Medications: Medication list as of 04-01-14 16:10 Attention: If you have any medications at home that are not on this list, DO NOT take them until youcontact your provider for clarification. Give a copy of your medication list to your primary care provider. Update your medication list any time medications or doses are changed and carry your medication list at all times in case of emergency. Electronically Signed By: JOHANN AGEE DO Signed On:01-APR-2014 16:08:26 Additional Information: Source: [facility] POWERCHART Document Id: [id number] Miscellaneous - Luzmaria Bynum, L.P.N. - 04/01/2014 3:37 PM CDT Pediatric Sales Stock Associate Intake/History Pediatric Sales Stock Associate Intake/History Entered On: 04/01/2014 15:40 CDT Performed On: 04/01/2014 15:37 CDT by LUZMARIA BYNUM BLENDING MACHINE FEEDER Intake Chief Complaint : refills left leg injury--4 months ago, had a fall left foot wart wants treated Temperature Core : 36.4 DegC(Converted to: 97.5 DegF) (LOW) Peripheral Pulse Rate : 69 /min Systolic Blood Pressure : 118 mmHg Diastolic Blood Pressure : 60 mmHg NIBP Mean : 79 mmHg SpO2 : 98 % Height : 170 cm(Converted to: 5 ft 7 inch(es), 67 inch(es)) Actual Weight : 87 kg(Converted to: 191 lb 13 oz) Dosing Weight Clinic : 87 kg Clinic BSA : 2.03 Body Mass Index : 30.1 kg/m2 COBYAneeshLUZMARIA [facility] - 04/01/2014 15:37 CDT General Info Accompanied By : Mother Languages : Yemeni Is Patient Female and 13-50 no hysterectomy : Yes Status : Patient denies Are you ? : No JINNYCAROLLUZMARIA Jenn [facility] - 04/01/2014 15:37 CDT Subjective Pain Symptoms : Yes JINNYCAROLLUZMARIA [facility] - 04/01/2014 15:37 CDT Pain Pain Assessment Grid Pain 1 Location : Other: left leg injury JINNYCAROLLUZMARIA Jenn [facility] - 04/01/2014 15:37 CDT Dependent Habits Tobacco Use/Currently Using : No Exposure to Tobacco Smoke : Care provider denies smoking in home Smoking Status : Never smoker Alcohol Use : No JINNYCAROLLUZMARIA Jenn [facility] - 04/01/2014 15:37 CDT Caffeine Use Grid Amount : very rare COBYAneeshLUZMARIA Jenn [facility] - 04/01/2014 15:37 CDT [facility] Document Id: [id number] CDT!34 documented in this encounter Plan of Treatment Not on filedocumented as of this encounter Procedures Procedure Name Priority Date/Time Associated Diagnosis Comme nts DX TIBIA FIBULA Routine 04/01/2014 5:05 PM Result s for this LEFT 2 VIEWS CDT procedure are i n the results section. documented in this encounter Results DX Tibia Fibula Left 2 Views (04/01/2014 5:05 PM CDT) Anatomical Region Laterality Modality Lower Extremity, TibFib Left Radiographic Angella ging Specimen (Source) Anatomical Collection Method Collection Time Re ceived Time Location / / Volume Laterality 04/01/2014 5:05 PM CDT Impressions 04/03/2014 8:39 AM CDT Negative left tibia and fibula. Narrative 04/03/2014 8:39 AM CDT EXAM: XR Tibia and Fibula Left 2 views INDICATION: pain/injury 4mo ago COMPARISON: None. FINDINGS: Soft tissues are unremarkable. No fracture or destructive lesion is identified. Knee and ankle terry nt spaces are preserved. Procedure Note Olegario Ortega Jr., M.D. - 2016 EXAM: XR Tibia and Fibula Left 2 views INDICATION: pain/injury 4mo ago COMPARISON: None. FINDINGS: Soft tissues are unremarkable. No fracture or destructive lesion is identified. Knee and ankle terry nt spaces are preserved. IMPRESSION: Negative left tibia and fibu la. Historical Provider IMG DIAGNOSTIC IMAGING PROCE KAUSHAL documented in this encounter Visit Diagnoses Not on filedocumented in this encounter
--- OUTSIDE RECORDS SUMMARY | 2022-03-28 15:51 | XMS_ITS | Encounter Summary ---
:2000 Author Organization [facility] Address [address] [place] [address] Care Team Providers Name Role Phone Unavailable Primary Care Provider Unavailable Encounter Details Date Type Department Care Team Description 12/16/2014 Hospital Encounter [facility]X [facility] Nanda Lyles P.A.-C., [place] Social History Tobacco Use Types Packs/Day Years [...] 07/21/2021 relatives? How often do you attend yazdanism or voodoo services? 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 - 12/16/2014 5:47 PM CDT [id number] [facility] CHIEF COMPLAINT/REASON FOR VISIT Ear wax. MEDICATIONS Review documentation in [employer]ner. ALLERGIES Review documentation in [employer]. HISTORY OF PRESENT ILLNESS Patient has ear wax problems and her right ear has been feeling full. She has not been able to hear well with it for a while and so she comes in to have that looked at and indeed there was a wax buildup in there. She is otherwise feeling fine. SYSTEMS REVIEW CONSTITUTIONAL: No fever, fatigue or body aches. ENT: Some wax plugging in the right ear. Nose: No nasal congestion. RESPIRATORY: No cough. SKIN: No rashes. PAST MEDICAL/SURGICAL HISTORY Past medical history: She is generally healthy PHYSICAL EXAMINATION PSYCH: Alert and oriented. No acute distress. ENT: The right ear does have a cerumen impaction that was irrigated with tap water and cleared of wax. At that time the eardrum appears pearly handy in color, and the wax is gone. The ear looks normal. On the left side, the tympanic membrane appears normal and the canal is clear. SKIN: [place], warm, and dry. IMPRESSION/REPORT/PLAN Cerumen impaction, removed. PLAN: Follow up for any further concerns. Mother is in agreement with this plan. Raoul Mcnally/pos Electronically Signed By: BALAJI UP PA-C On: 12/17/2014 06:02 PM Source: [facility] MHSDOLBEYNONRADSYS Document Id: [id number] documented in this encounter Miscellaneous Notes Miscellaneous - Balaji Up P.A.-C. - 12/16/2014 6:26 PM CDT Ambulatory Patient Summary [facility] - [address] [id number] Visit Information Name: [facility]HAD NE[facility] Number: [id number] Current Date: 12/16/2014 18:26:56 Physicians Attending Provider: BALAJI UP PA-C Primary Care Provider: MELANIA BENITEZ MD FARHAD [...] the Following Medications: Medication list as of 12-16-14 18:26 Attention: If you have any medications at home that are not on this list, DO NOT take them until youcontact your provider for clarification. Give a copy of your medication list to your primary care provider. Update your medication list any time medications or doses are changed and carry your medication list at all times in case of emergency. Electronically Signed By: Signed On: Your Allergies & Intolerances Substance Reaction Symptoms Category Comments No Known Allergies Drug Your Problem List Problem Status Onset Comments Hip pain-swelling Active 08/23/2013 Your Upcoming Appointments Date Time Location Provider No Appointments found Attention: Contact your local Clinic if further appointment detail needed. Your Goals/Additional instructions: Source: [facility] POWERCHART Document Id: [id number] Miscellaneous - Balaji Up P.A.-C. - 12/16/2014 6:26 PM CDT Ambulatory Discharge Medication List [facility] - [address], [place] [id number] Visit Information Name: FARHAD NEGRETE [facility] Number: [id number] Visit Date: 12/16/2014 18:26:54 Attending Provider: BALAJI UP PA-C Primary Care Provider: MELANIA BENITEZ MD FARHAD [...] the Following Medications: Medication list as of 12-16-14 18:26 Attention: If you have any medications at home that are not on this list, DO NOT take them until youcontact your provider for clarification. Give a copy of your medication list to your primary care provider. Update your medication list any time medications or doses are changed and carry your medication list at all times in case of emergency. Electronically Signed By: Signed On: Additional Information: Source: [facility] POWERCHART Document Id: [id number] Miscellaneous - Steve Cervantes, C.M.AChen - 12/16/2014 6:09 PM CDT Pediatric Rn Team Leader Intake/History Pediatric Rn Team Leader Intake/History Entered On: 12/16/2014 18:11 CDT Performed On: 12/16/2014 18:09 CDT by STEVE CERVANTES Intake Chief Complaint : ear wax impaction in Right ear Onset of Symptoms : today: 1.5 hours ago Ambulatory Intake Additional Information : water instilled in ear today, no relief Temperature Core : 37.2 DegC(Converted to: 99.0 DegF) Peripheral Pulse Rate : 68 /min Systolic Blood Pressure : 100 mmHg Diastolic Blood Pressure : 60 mmHg NIBP Mean : 73 mmHg Actual Weight : 88.2 kg(Converted to: 194 lb 7 oz) Dosing Weight Clinic : 88.2 kg STEVE CERVANTES - 12/16/2014 18:09 CDT General Info Languages : Chinese Is Patient Female and 13-50 no hysterectomy : Yes Status : Patient denies Are you ? : No STEVE CERVANTES - 12/16/2014 18:09 CDT Subjective Pain Symptoms : No STEVE CERVANTES 12/16/2014 18:09 CDT Dependent Habits Tobacco Use/Currently Using : No Exposure to Tobacco Smoke : Care provider denies smoking in home Smoking Status : Never smoker STEVE CERVANTES - 12/16/2014 18:09 CDT Caffeine Use Grid Amount : very rare STEVE CERVANTES - 12/16/2014 18:09 CDT Source: [facility] POWERCHART Document Id: [id number] CDT!26 documented in this encounter Plan of Treatment Not on filedocumented as of this encounter Visit Diagnoses Not on filedocumented in this encounter
--- OUTSIDE RECORDS SUMMARY | 2022-03-28 15:51 | XMS_ITS | Encounter Summary ---
:2000 Author Organization [facility] Address [address] [place] [address] Care Team Providers Name Role Phone Unavailable Primary Care Provider Unavailable Encounter Details Date Type Department Care Team Description 01/12/2014 Hospital Encounter HX [facility] Nanda Lyles P.A.-C., [...] 07/21/2021 relatives? How often do you attend judaism or evangelical services? Never 07/21/2021 Do you belong to any clubs or organizations such as No 07/21/2021 judaism groups, unions, fraternal or athletic groups, or [...] or slept in a prison (including now)? 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 - 01/12/2014 2:33 PM CDT [id number] CHIEF COMPLAINT/REASON FOR VISIT Ear wax in the left ear. MEDICATION Review documentation in [employer]ner. ALLERGIES Reviewed documentation in [employer]ner. HISTORY OF PRESENT ILLNESS The patient has ear wax issues and feels like there is wax in her ear, cannot hear very well. She has not done any pretreatment but is here for ear wax removal. SYSTEMS REVIEW CONSTITUTIONAL: No fever, fatigue or body aches or feeling ill. ENT: Ears feel plugged with wax. RESPIRATORY: No cough. SKIN: No rashes. GI: No nausea, vomiting, or diarrhea. PAST MEDICAL/SURGICAL HISTORY She is generally healthy. PHYSICAL EXAMINATION PSYCH: Alert and oriented. No acute distress. ENT: Both ears were lavaged and cerumen impactions removed. The TMs appear normal. Nose, clear nasaldrainage. Throat is clear. No lymphadenopathy. IMPRESSION/REPORT/PLAN Cerumen impaction, cerumen removal on both sides. PLAN: Periodic use of Debrox. No <__IM_1: unclear __>. Followup for any further concerns. The patient and mother are in agreement with this plan. Raoul Mcnally/pos Electronically Signed By: BALAJI UP PA-C On: 01/13/2014 04:36 PM Source: [facility] MHSDOLBEYNONRADSYS Document Id: [id number] documented in this encounter Miscellaneous Notes Miscellaneous - Balaji Up P.A.-C. - 01/12/2014 4:03 PM CDT Ambulatory Patient Summary [facility] - [address] [place] [id number] Visit Information Name: FARHAD NEGRETE [facility] Number: [id number] Current Date: 01/12/2014 16:03:33 Physicians Attending Provider: BALAJI UP PA-C Primary Care Provider: MELANIA BENITEZ MD FARHAD NEGRETE has been given the following list of follow-up instructions, medication list, andpatient education materials: Follow-up Instructions Your Medications Here [...] Spansule 5 mg oral capsule, extended release) See Instructions 3 cap(s)PO Daily AM Stop Taking the Following Medications: Medication list as of 01-12-14 16:03 Attention: If you have any medications at [...] 08/23/2013 Your Upcoming Appointments Date Time Location Reason Provider No Appointments found Attention: Contact your local Clinic if further appointment detail needed. Your Goals/Additional instructions: Source: [facility] POWERCHART Document Id: [id number] Miscellaneous - Balaji Up P.A.-C. - 01/12/2014 4:03 PM CDT Ambulatory Discharge Medication List [facility] [address] [place] [id number] Visit Information Name: FARHAD NEGRETE [facility] Number: [id number] Visit Date: 01/12/2014 16:03:33 Attending Provider: BALAJI UP PA-C Primary Care [...] Spansule 5 mg oral capsule, extended release) See Instructions 3 cap(s)PO Daily AM Stop Taking the Following Medications: Medication list as of 01-12-14 16:03 Attention: If you have any medications at [...] Signed By: Signed On: Additional Information: Source: [facility] POWERCHART Document Id: [id number] Miscellaneous - Steve Cervantes, C.M.AChen - 01/12/2014 3:37 PM CDT Pediatric Ampoule Inspector Intake/History Pediatric Ampoule Inspector Intake/History Entered On: 01/12/2014 15:41 CDT Performed On: 01/12/2014 15:37 CDT by TSEVE CERVANTES Intake Chief Complaint : seeking ear lavage; Left ear Onset of Symptoms : 1 days ago Ambulatory Intake Additional Information : pt been swimming Temperature Core : 37.3 DegC(Converted to: 99.1 DegF) Peripheral Pulse Rate : 84 /min Systolic Blood Pressure : 102 mmHg Diastolic Blood Pressure : 72 mmHg NIBP Mean : 82 mmHg Height : 173.5 cm(Converted to: 5 ft 8 inch(es), 68 inch(es)) Actual Weight : 87.2 kg(Converted to: 192 lb 4 oz) Dosing Weight Clinic : 87.2 kg Clinic BSA : 2.05 Body Mass Index : 28.97 kg/m2 STEVE CERVANTES - 01/12/2014 15:37 CDT General Info Languages : Cook Islander STEVE CERVANTES - 01/12/2014 15:37 CDT Subjective Pain Symptoms : No STEVE CERVANTES 01/12/2014 15:37 CDT Dependent Habits Tobacco Use/Currently Using : No Exposure to Tobacco Smoke : Care provider denies smoking in home Smoking Status : Never smoker STEVE CERVANTES - 01/12/2014 15:37 CDT Caffeine Use Grid Amount : very rare STEVE CERVANTES 01/12/2014 15:37 CDT Source: [employer] Document Id: [id number] CDT!26 documented in this encounter Plan of Treatment Not on filedocumented as of this encounter Visit Diagnoses Not on filedocumented in this encounter
--- OUTSIDE RECORDS SUMMARY | 2022-03-28 15:51 | XMS_ITS | Encounter Summary ---
:2000 Author Organization [facility] Address [address] [place] [address] Care Team Providers Name Role Phone Unavailable Primary Care Provider Unavailable Encounter Details Date Type Department Care Team Description 04/24/2014 Hospital Encounter HX [facility] Johann Hong D.O. [address] [place] [address] (Wo rk) Social History Tobacco [...] 07/21/2021 relatives? How often do you attend quaker or buddhism services? 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 (Girls, 2-20 Years) documented in this encounter Progress Notes Johann Agee D.O. - 04/24/2014 4:15 PM CDT [id number] CHIEF COMPLAINT/REASON FOR VISIT Follow-up plantar warts, left foot. Mother is not certain they have improved much. Ruy has not been doing any home treatment. She is not debriding as we have recommended. As far as the left leg pain is concerned, she did see ortho. They found that she has hernández splints after doing an MRI. She has been placed on rest. ADHD medication, Dextroamphetamine 5 mg, 3 capsules daily seems to be working exceptionably well. We will give her a 3-month supply with the understanding I will not fill this early, and they should keep the medication locked and secured. PHYSICAL EXAMINATION Plantar warts, left foot. There was a large one at the base of the second toe with a few clustered along the distal metatarsals approximately 10 left, all treated with 3 ywdcmk-qocd-cchpoc cycles usingliquid nitrogen and the cryo gun. She tolerated treatment well. Once again, encouraged her to debride them with a pumice stone. Mother reports she did buy one. I will leave it up to them to decide whether or not she should return for further treatments here. Johann Agee D.O./pos Electronically Signed By: JOHANN AGEE DO On: 04/27/2014 08:00 AM Source: [facility] MHSDOLBEYNONRADSYS Document Id: [id number] documented in this encounter Miscellaneous Notes Miscellaneous - Dilma Simpson T - 10/21/2014 3:[address] JOHANN AGEE: MEDICATION REFILL REQUEST Document Contains Addenda Addendum by JACQUIE BYNUM LPN on 26 October 2014 15:07:17 CDT notified Addendum by JACQUIE BYNUM LPN on 23 October 2014 13:28:11 CDT LM Addendum by JACQUIE BYNUM LPN on 22 October 2014 10:53:20 CDT LM Addendum by AGUSTINA BROWNLEE RN on 21 October 2014 16:58:42 CDT From: AGUSTINA BROWNLEE RN ([facility] Nurse) To: JACQUIE BYNUM LPN; Sent: 10/21/2014 16:58:42 CDT Subject: FW: Med Refill Request: Dextroamphetamine please notify when ready for chart picker. Addendum by MARLA SAWYER RN on 21 October 2014 16:50:33 CDT From: MARLA SAWYER RN ([facility] Nurse) To: [facility] Nurse; Sent: 10/21/2014 16:50:33 CDT Subject: FW: Med Refill Request: Dextroamphetamine pending signature. Addendum by JOHANN AGEE DO on 21 October 2014 16:49:25 CDT From: JOHANN AGEE DO Sent: 10/21/2014 16:49:25 CDT Subject: RE:Med Refill Request: Dextroamphetamine Approved Order:dextroamphetamine (Dexedrine Spansule 5 mg oral capsule, extended release) 3 cap(s) PO Daily AM Qty: 90 cap(s) Refills: 0 Substitutions Allowed Print - [id number] Signed by JOHANN AGEE DO 10/21/2014 16:49:16 Addendum by MARLA SAWYER RN on 21 October 2014 16:18:21 CDT From: MARLA SAWYER RN ([facility] Nurse) To: JOHANN AGEE DO; Sent: 10/21/2014 16:18:21 CDT Subject: Med Refill Request: Dextroamphetamine On hold pending signature Order:dextroamphetamine (Dexedrine Spansule 5 mg oral capsule, extended release) 3 cap(s) PO Daily AM Qty: 90 cap(s) Refills: 0 Substitutions Allowed Print - [id number] Refill Request for Dextroamphetamine. Pt last refill was 07/31/14 for 90 caps. Ordered 3 5mg caps PO QAM. Pt last seen: 04/24/14; Med check 04/01/14 From: DILMA SIMPSON ([facility] To: ALEJANDRINA [facility]; Cc: [facility] Sent: 10/21/2014 15:57:11 CDT Subject: DR JOHANN AGEE: MEDICATION REFILL REQUEST Actions: Notify patient- refer to General Message If you need a prescription refill please call your pharmacy. Please allow 3 business days for processing. Call Center Template: ?? May we leave a message for you on this phone? YES ?? How soon do you need a call back? ?? What can I help you with today?CAROLINA HAS 5 DEXTROAMPHETAMINE LEFT. YOANA WOULD LIKE TO REQUEST THAT A REFILL BE PRINTED OUT FOR HER TO KNIFE EDGER. PLEASE CALL WHEN IT IS READY TO BE PICKED UP AT THE HEAD OF MARKETING. ?? If Medication Refill: o What is the medication?DEXTROAMPHETAMINE o What pharmacy do you use? o Have you contacted your pharmacy regarding this request? I will send this information to the appropriate staff member who will look into your concern. If thenurse needs to talk to you he or she will call you back within two hours. Thank you for calling [facility]. Source: [facility] POWERCHART Document Id: [id number] Electronically signed by Latha [facility] Lay Up Operator [id number] at 12/12/2016 3:31 AM CDT Miscellaneous - Ismael Moss, RChenN. - 07/30/2014 4:01 PM CST Med Refill Request: Dextroamphetamine Document Contains Addenda Addendum by ELEN PHOENIX RN on 31 July 2014 12:02:23 NURSING TECHN Rx signed and mother notified. Addendum by MARLA SAWYER RN on 31 July 2014 09:18:26 NURSING TECHN From: MARLA SAWYER RN ([facility] Nurse) To: [facility]DRINA [facility]; Sent: 07/31/2014 09:18:26 NURSING TECHN Subject: FW: Med Refill Request: Dextroamphetamine pending signature. Addendum by JOHANN AGEE DO on 31 July 2014 09:01:06 NURSING TECHN From: JOHANN AGEE DO Sent: 07/31/2014 09:01:05 NURSING TECHN Subject: RE:Med Refill Request: Dextroamphetamine Approved Order:dextroamphetamine (Dexedrine Spansule 5 mg oral capsule, extended release) 3 cap(s) PO Daily AM Qty: 90 cap(s) Refills: 0 Substitutions Allowed Print - [id number] Signed by JOHANN AGEE DO 07/31/2014 09:00:59 From: ISMAEL MOSS RN ([facility] Nurse) To: JOHANN AGEE DO; Sent: 07/30/2014 16:01:27 NURSING TECHN Subject: Med Refill Request: Dextroamphetamine On hold pending signature Order:dextroamphetamine (Dexedrine Spansule 5 mg oral capsule, extended release) 3 cap(s) PO Daily AM Qty: 90 cap(s) Refills: 0 Substitutions Allowed Print - [id number] Caller is: ( ) Patient ( ) Mother ( ) Father ( ) Spouse ( ) Daughter ( ) Son ( x ) Pharmacy ( ) Other: Provider: [facility] Name of Medications Needing Refill:Adderall Last Refill Date: 04/30/14 Additional Information: Pt was seen by you on 04/01/14 for ADHD med checks Last / Future Appointment:04/24/14 Disposition: ( ) Send to Pharmacy ( ) Call to Pharmacy (x ) Patient will chart picker Script ( ) Mail Rx to Patient Source: [facility] POWERCHART Document Id: [id number] Miscellaneous - Meron Treadwell L.P.N. - 04/24/2014 4:19 PM CDT Pediatric Fitness Coach Intake/History Pediatric Fitness Coach Intake/History Entered On: 04/24/2014 16:21 CDT Performed On: 04/24/2014 16:19 CDT by MERON TREADWELL LPN Intake Chief Complaint : F/u wart Lt foot Temperature Core : 36.4 DegC(Converted to: 97.5 DegF) (LOW) Peripheral Pulse Rate : 72 /min Respiratory Rate : 14 /min Systolic Blood Pressure : 112 mmHg Diastolic Blood Pressure : 70 mmHg NIBP Mean : 84 mmHg SpO2 : 96 % Height : 170 cm(Converted to: 5 ft 7 inch(es), 67 inch(es)) Actual Weight : 85.2 kg(Converted to: 187 lb 13 oz) Dosing Weight Clinic : 85.2 kg Clinic BSA : 2.01 Body Mass Index : 29.48 kg/m2 MERON TREADWELL LPN - 04/24/2014 16:19 CDT General Info Accompanied By : Mother Languages : Bulgarian Is Patient Female and 13-50 no hysterectomy : Yes Status : Patient denies Are you ? : No MERON TREADWELL LPN - 04/24/2014 16:19 CDT Subjective Pain Symptoms : No MERON TREADWELL LPN - 04/24/2014 16:19 CDT Dependent Habits Tobacco Use/Currently Using : No Exposure to Tobacco Smoke : Care provider denies smoking in home Smoking Status : Never smoker MERON TREADWELL LPN - 04/24/2014 16:19 CDT Caffeine Use Grid Amount : very rare MERON TREADWELL LPN - 04/24/2014 16:19 CDT Source: [facility] POWERCHART Document Id: [id number] CDT!30 documented in this encounter Plan of Treatment Not on filedocumented as of this encounter Visit Diagnoses Not on filedocumented in this encounter
--- OUTSIDE RECORDS SUMMARY | 2022-03-28 15:51 | XMS_ITS | Encounter Summary ---
:2000 Author Organization [facility] Address [address] [place] [address] Care Team Providers Name Role Phone Unavailable Primary Care Provider Unavailable Encounter Details Date Type Department Care Team Description 01/08/2014 - Hospital Encounter HX [facility] MAJOLENE PT [place], 01/29/2014 D.P.M. [address] [place] [address] (Wo rk) Social History Tobacco Use Types [...] How often do you attend amish or mosque services? Never 07/21/2021 Do you belong to [...] or slept in a alf (including now)? 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 - 01/08/2014 12:00 AM CDT [id number] ONSET DATE: September 2013. START OF CARE DATE: 01/08/2014. PRIMARY DIAGNOSIS: Right sinus tarsi syndrome. TREATMENT DIAGNOSIS: Impaired range of motion motor function muscle performance associated with softtissue and connective tissue dysfunction. SUBJECTIVE EXAMINATION: The patient presents today with chief complaint of pain in her right ankle. The patient has a longstanding history of ankle pain. In 2009 she fractured her right ankle and growth plate. She has had multiple ankle issues since that injury. The patient underwent physical therapy and MRI approximately 18 months ago. She did have slight relief of symptoms until October of last year.She underwent a cortisone injection which also offered relief for approximately 2 months until she sprained her right ankle again. The patient states that the pain had been better since last summer until September of this year, the pain began to return. She did see her insurance account specialist. 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 The patient complains that her right leg is now swollen and black and blue. She is currently wearing a compression sock since Sunday which does offer some relief of her symptoms. The patient rates pain at a 2/10 at rest, and points to the anterior and lateral aspect of her ankle anteriorly of the right lateral malleoli. The patient states that pain does get to a 9/10 at its worst, such as prolonged moving or sweeping functions. The patient states that in November she jumped on a friend's trampoline. She did not have symptoms while jumping but states that increased pain for an entire week following that episode. She has difficulty with activities such as walking. States she has onset of symptoms after 1 mile or 0.5 hour of walking. Also has difficulty with prolonged standing, tolerance of 0.5 hour. She did go swimmingearlier this week, which offered slight decrease of symptoms, but states that when she was pumping her ankles she did have increased pain. This did not linger after exiting the pool. The patient was prescribed ibuprofen 3 times a day for inflammation. She has not been icing but states that referring physician did also recommend icing. OBJECTIVE EXAMINATION: OBSERVATION: The patient has orthopedic insert in right shoe, states that she received this on Sunday as well. Increased swelling on right anterior and lateral ankle, compared to the left. The patient ambulates with slight decreased weightbearing on the right lower extremity. PALPATION: Tenderness with palpation to right lateral malleolus as well as sinus tarsi region. No tenderness to lower leg musculature. NEUROLOGICAL EXAMINATION: Sensation intact to light touch bilateral lower extremities. Active range of motion, right 8 degrees dorsiflexion, 48 degrees plantar flexion, 28 degrees inversion, 13 degreeseversion. Left: 14 degrees dorsiflexion, 70 degrees plantar flexion, 35 degrees inversion and 16 degrees eversion. Passive range of motion on the right 10 degrees dorsiflexion with onset of pain, 60 degrees plantar flexion. STRENGTH: 5/5 for left lower extremity. On the right, 4+/5 for dorsiflexion, inversion, and eversion4/5 with pain on resisted eversion. SPECIAL TESTS: Positive varus test on right. Negative valgus test. Negative anterior and posterior drawer. TREATMENT AND EDUCATION: Treatment today consisted of ultrasound at 1.2 nielsen per cm squared to the right anterior lateral ankle. Also initiated active range of motion of towel crunch performance of the alphabet without resistance, single leg stance and bilateral heel raise. ASSESSMENT: The patient is a 13-year-old female with chronic history of right ankle pain following an ankle fracture in 2009. Problem list includes decreased active and passive range of motion on the right, decreased strength with inversion, eversion, and dorsiflexion. Decreased tolerance to activities such as walking, standing, biking, swimming. PLANS: Goals: 1. The patient to increase walking tolerance to 1 hour to return to shopping activities with friendsin 3 weeks. 2. Patient to decrease resting pain to 0/10 in 2 weeks. 3. Patient to become independent in home exercise program for long-term maintenance of right ankle issues. The patient benefit from continued physical therapy services including modalities for pain andswelling modulation, manual therapy techniques for range of motion deficits, therapeutic exercise, and neuromuscular re-education will be used primarily for active range of motion strengthening and stabilization of the right ankle. The patient will be seen 2 times a week for a period of 2 to 4 weeks. Thank you for your referral. Sophie Guerra P.T., D.P.T./pos Electronically Signed By: SOPHIE GUERRA On: 01/09/2014 01:55 PM Modified by and Electronically Signed by: SOPHIE GUERRA On: 01/09/2014 01:55 PM Source: [facility] MHSDOLBEYNONRADSYS Document Id: [id number] documented in this encounter Plan of Treatment Not on filedocumented as of this encounter Visit Diagnoses Not on filedocumented in this encounter
--- OUTSIDE RECORDS SUMMARY | 2022-03-28 15:51 | XMS_ITS | Encounter Summary ---
:2000 Author Organization [facility] Address [address] [place] [address] Care Team Providers Name Role Phone Unavailable Primary Care Provider Unavailable Encounter Details Date Type Department Care Team Description 07/13/2014 Hospital Encounter HX [facility] Nanda Lyles P.A.-C., [...] How often do you attend judaism or pentecostalism services? Never 07/21/2021 Do you [...] slept in a skilled nursing (including now)? 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 - 07/13/2014 6:07 PM CST [id number] [facility] CHIEF COMPLAINT/REASON FOR VISIT Possible ringworm in one spot and eczema in the other. MEDICATIONS Review documentation in Cerner. ALLERGIES Review documentation in Cerner. HISTORY OF PRESENT ILLNESS Patient has an area near her right eye that is round and has a raised red border and central clearing that they wonder if that might be ringworm. 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 Apparently her mother had this issue and now she has it as well, and it has flared with the winter arrival. The area that they believe is possibly ringworm that is something that just popped up recently. She is otherwise feeling fine. Generally healthy doing well, a never smoker. She is not having any fevers. Does not feel ill. SYSTEMS REVIEW CONSTITUTIONAL: Negative for fever, fatigue or body aches. ENT: No nasal congestion, sore throat. RESPIRATORY: No cough. SKIN: She does have these 2 different types of dermatitis on her face. ALLERGIC/IMMUNOLOGIC: She is known to have the history of eczema. PAST MEDICAL/SURGICAL HISTORY She is generally healthy. PHYSICAL EXAMINATION PSYCH: Alert and oriented. No acute distress. HEENT: Head: On the face, she does have just lateral to the right eye at 1.5 cm round oval shaped red raised border with a central clearing that gives the appearance of ringworm. Then she also has a chronic flaky dermatitis on the upper portion of the eyelids and at the borders of the nares on both sides with some flaking. No associated lymphadenopathy. SKIN: Otherwise pink, warm and dry. IMPRESSION/REPORT/PLAN The one area I think it looks like ringworm. The other is a chronic eczematous dermatitis in the eyebrow area and nose area. PLAN For the ringworm I have given them a prescription for the Lamisil cream to use twice a day x21 days.For the eczema, I gave her a prescription for the triamcinolone topical 1% cream to be used twice a day for up to 7 days. No longer. And then after that, moisturizing with either Cetaphil cream or the E ucerin eczema cream to keep it at bay. Mother is in agreement with this plan. Timmy Mcnally./pos Electronically Signed By: OLGA UP PA-C On: 07/15/2014 10:17 AM Source: [facility] MHSDOLBEYNBULLSYS Document Id: [id number] STRY OPERATIONS INVESTIGATOR documented in this encounter Miscellaneous Notes Miscellaneous - Olga Up P.A.-C. - 07/13/2014 6:37 PM CST Ambulatory Patient Summary [facility] - [address] [id number] Visit Information Name: PENELOPE FARHAD SUMIT [facility] Number: [id number] Current Date: 07/13/2014 18:37:15 Physicians Attending Provider: OLGA UP PA-C Primary Care Provider: MELANIA BENITEZ [...] tablet) 1 Tablet(s), Oral, once a day terbinafine topical (Lamisil Topical 1% topical cream) 1 mars, Topical, two times a day x 21 day(s) New Routed to Printer triamcinolone topical (triamcinolone 0.1% topical cream) 1 mars, Topical, three times a day x 7 day(s) New Routed to Printer Stop Taking the Following Medications: Medication list as of 07-13-14 18:37 Attention: If you have any medications at [...] appointment detail needed. Your Goals/Additional instructions: Source: [facility] POWERCHART Document Id: [id number] STRY OPERATIONS INVESTIGATOR Miscellaneous - Olga Up P.A.-C. - 07/13/2014 6:37 PM CST Ambulatory Discharge Medication List [facility] - [address] [id number] Visit Information Name: FARHAD NEGRETE [facility] Number: [id number] Visit Date: 07/13/2014 18:37:13 Attending Provider: OLGA UP PA-C Primary Care Provider: MELANIA BENITEZ [...] tablet) 1 Tablet(s), Oral, once a day terbinafine topical (Lamisil Topical 1% topical cream) 1 mars, Topical, two times a day x 21 day(s) New Routed to Printer triamcinolone topical (triamcinolone 0.1% topical cream) 1 mars, Topical, three times a day x 7 day(s) New Routed to Printer Stop Taking the Following Medications: Medication list as of 07-13-14 18:37 Attention: If you have any medications at [...] Signed By: Signed On: Additional Information: Source: [facility] POWERCHART Document Id: [id number] STRY OPERATIONS INVESTIGATOR Miscellaneous - Steve Cervantes, C.M.AChen - 07/13/2014 6:09 PM CST Pediatric Grain Cleaner And Transfer Operator Intake/History Pediatric Grain Cleaner And Transfer Operator Intake/History Entered On: 07/13/2014 18:15 INDUSTRY OPERATIONS INVESTIGATOR Performed On: 07/13/2014 18:09 INDUSTRY OPERATIONS INVESTIGATOR by STEVE CERVANTES Intake Chief Complaint : ? impetigo/ringworm; near Right eye. ezcema around Right eyebrow. Lesion itches around face Temperature Core : 36.6 DegC(Converted to: 97.9 DegF) Systolic Blood Pressure : 112 mmHg Diastolic Blood Pressure : 60 mmHg NIBP Mean : 77 mmHg Actual Weight : 89 kg(Converted to: 196 lb 3 oz) Dosing Weight Clinic : 89 kg STEVE CERVANTES - 07/13/2014 18:09 INDUSTRY OPERATIONS INVESTIGATOR General Info Languages : Faroese Is Patient Female and 13-50 no hysterectomy : Yes Status : Patient denies Are you ? : No STEVE CERVANTES - 07/13/2014 18:09 INDUSTRY OPERATIONS INVESTIGATOR Subjective Pain Symptoms : No STEVE CERVANTES - 07/13/2014 18:09 INDUSTRY OPERATIONS INVESTIGATOR Dependent Habits Tobacco Use/Currently Using : No Exposure to Tobacco Smoke : Care provider denies smoking in home Smoking Status : Never smoker STEVE CERVANTES - 07/13/2014 18:09 INDUSTRY OPERATIONS INVESTIGATOR Caffeine Use Grid Amount : very rare STEVE CERVANTES - 07/13/2014 18:09 INDUSTRY OPERATIONS INVESTIGATOR ID Screen Travel Within Last 21 Days : No STEVE CERVANTES - 07/13/2014 18:09 INDUSTRY OPERATIONS INVESTIGATOR Source: [facility] POWERLocalEats Document Id: [id number] INDUSTRY OPERATIONS INVESTIGATOR!25 STRY OPERATIONS INVESTIGATOR documented in this encounter Plan of Treatment Not on filedocumented as of this encounter Visit Diagnoses Not on filedocumented in this encounter
--- OUTSIDE RECORDS SUMMARY | 2022-03-28 15:51 | XMS_ITS | Encounter Summary ---
:2000 Author Organization [facility] Address [address] [place] [address] Care Team Providers Name Role Phone Unavailable Primary Care Provider Unavailable Encounter Details Date Type Department Care Team Description 06/30/2014 Hospital Encounter HX [facility] Renu Cobian, DIRECTOR PROCESS, C.N.P. [address] [place] [address] (Wo rk) Social History Tobacco Use Types [...] How often do you attend baptism or uatsdin services? Never 07/21/2021 Do you belong to [...] or slept in a [facility] (including now)? 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 - 06/30/2014 4:47 PM CST [id number] [facility] CHIEF COMPLAINT/REASON FOR VISIT Sore throat. HISTORY OF PRESENT ILLNESS This pleasant 14-year-old female presents to clinic today with her mother, who reports abrupt onset of sore throat within the past 24 hours and now has developed a fever and presents today for further evaluation of possible strep throat. MEDICATIONS Ibuprofen. Zyrtec. Dextroamphetamine. Oral contraceptive pills. ALLERGIES No known diagnosed medication allergies. SYSTEMS REVIEW Sore throat, fever, rhinitis, chills, cough. Patient is fatigued and febrile. No nausea, no vomiting, no diarrhea. Patient is tolerating fluids. PAST MEDICAL/SURGICAL HISTORY The patient does not have a previous history of strep throat. SOCIAL HISTORY Patient attends [employer] in the 9th grade. FAMILY HISTORY The patient had been exposed to a relatives who had strep throat recently. VITAL SIGNS Temperature is 39.2, pulse is 88, blood pressure is 126/82, actual weight is 87 kg. PHYSICAL EXAMINATION Physical exam reveals a pleasant, 14-year-old female, no acute distress. SKIN: Generally is warm, dry and intact. Febrile at 39.2 degrees Celsius. HEENT: Head is normocephalic. Eyes are fatigued appearing. Ears are pearly white, bulging bilaterally. Nose is patent. Throat posteriorly mild erythema in the posterior oropharynx. Lymph: Neck is supple. No lymphadenopathy palpated. HEART: Rate is 88 beats per minute. LUNGS: Clear anterior posterior throughout. EXTREMITIES: Full range of motion upper and lower extremities. MENTAL STATUS: Pleasant cooperative fatigued. IMPRESSION/REPORT/PLAN Viral syndrome. DIAGNOSTICS: Rapid strep test negative. PLAN Informed mother we would call only if the culture would come back positive. Okay to call [phone]. Mother's name is Sonia and leave a message if necessary. Preferred pharmacy would be [facility] in [place], [place]. For now continue symptomatic relief measures, alternating ibuprofen,acetominophen and fluids. Follow up if symptoms persist an additional 5 to 7 days, sooner if symptoms would worsen, or as needed in the future for minor ailments. Patient is discharged in stable condition. Given written information outlining the details of today's visit. Aneesh [place].N.PChen/pos Electronically Signed By: SAVI POE POSTBED STITCHER On: 07/19/2014 09:35 AM Modified by and Electronically Signed by: SAVI POE POSTBED STITCHER On: 07/19/2014 09:18 AM Source: [facility] MHSDOLBEYNONRADSYS Document Id: [id number] CULTURE EXTENSION SPECIALIST documented in this encounter Procedure Notes Steve Cervantes C.MMaryellen - 06/30/2014 5:13 PM CST Rapid Strep A Screen POC Rapid Strep A Screen POC Entered On: 06/30/2014 17:13 AGRICULTURE EXTENSION SPECIALIST Performed On: 06/30/2014 17:13 AGRICULTURE EXTENSION SPECIALIST by STEVE CERVANTES Rapid Strep A Screen POC Rapid Strep A Screen POC : Negative Internal Positive QC : Pass Internal Negative QC : Pass Rapid Strep Device Lot Number : [id number] Rapid Strep Device Expiration Date : 10/14/2015 CDT STEVE CERVANTES - 06/30/2014 17:13 AGRICULTURE EXTENSION SPECIALIST Source: [facility] POWERCHART Document Id: [id number] AGRICULTURE EXTENSION SPECIALIST!7 CULTURE EXTENSION SPECIALIST documented in this encounter Nursing Notes Savi Poe APRN, C.N.P. - 06/30/2014 5:24 PM CST Ambulatory Patient Education The following Patient Education Materials have been given to the patient: Patient Education Materials: Ambulatory VIRAL SYNDROME (Adult) Ambulatory Viral Syndrome (Adult) A viral illness may cause a number of symptoms. The symptoms depend on the part of the body that thevirus affects. If it settles in the nose, throat, and lungs, it may cause cough, sore throat, congestion, and sometimes headache. If it settles in the stomach and intestinal tract, it may cause vomiting and diarrhea. Sometimes it causes vague symptoms like aching all over, feeling tired, loss of appetite, or fever. A viral illness usually lasts 1 to 2 weeks, but sometimes it lasts longer. In some cases, a more serious infection can look like a viral syndrome in the first few days of the illness. You may need another exam and additional tests to know the difference. Watch for the warning signs listed below. Home care Follow these guidelines for taking care of yourself at home: ?? If symptoms are severe, rest at home for the first 2 to 3 days. ?? Stay away from cigarette smoke - both your smoke and the smoke from others. ?? You may use acetaminophen or ibuprofen for fever, muscle aching, and headache, unless another medicine was prescribed for this. If you have chronic liver or kidney disease or ever had a stomach ulcer or GI bleeding, talk with your doctor before using these medicines No one who is younger than 18 and ill with a fever should take aspirin. It may cause severe liver damage. ?? Your appetite may be poor, so a light diet is fine. Avoid dehydration by drinking 8 to 12 8-ounceglasses of fluids each day. This may include water; orange juice; lemonade; apple, grape, and cranberry juice; clear fruit drinks; electrolyte replacement and sports drinks; and decaffeinated teas and coffee. If you have been diagnosed with a kidney disease, ask your doctor how much and what types of fluids you should drink to prevent dehydration. If you have kidney disease, drinking too much fluid can cause it build up in the your body and be dangerous to your health. ?? Sbib-hcn-fggvbtg remedies won't shorten the length of the illness but may be helpful for cough, sore throat; and nasal and sinus congestion. Don't use decongestants if you have high blood pressure. Follow-up care Follow up with your health care provider if you do not improve over the next week. When to seek medical care Get prompt medical attention if any of these occur: ?? Cough with lots of colored sputum (mucus) or blood in your sputum ?? Chest pain, shortness of breath, wheezing, or difficulty breathing ?? Severe headache; face, neck, or ear pain ?? Severe, constant pain in the lower right side of your belly (abdominal) ?? Continued vomiting (cant keep liquids down) ?? Frequent diarrhea (more than 5 times a day); blood (red or black color) or mucus in diarrhea ?? Feeling weak, dizzy, or like you are going to faint ?? Extreme thirst ?? Fever of 100.4?? F (38?? C) oral or higher, not better with fever medication ?? Convulsion ?? [id number] [facility], [address] [place] [address], [place] [address]. All rights reserved. This information is not intended as a substitute for professional medical care. Always follow your healthcare professional's instructions. Source: [facility] [email or web address] Document Id: [id number] CULTURE EXTENSION SPECIALIST Savi Poe APRN, C.N.P. - 06/30/2014 5:24 PM CST Ambulatory Patient Education The following Patient Education Materials have been given to the patient: Patient Education Materials: Source: [facility] [email or web address] Document Id: [id number] CULTURE EXTENSION SPECIALIST documented in this encounter Miscellaneous Notes Miscellaneous - Steve Cervantes, C.M.A. - 06/30/2014 5:02 PM CST Pediatric Nursing Director Intake/History Pediatric Nursing Director Intake/History Entered On: 06/30/2014 17:05 AGRICULTURE EXTENSION SPECIALIST Performed On: 06/30/2014 17:02 AGRICULTURE EXTENSION SPECIALIST by STEVE CERVANTES Intake Chief Complaint : ST, fever, runny nose, chills, cough w/slight Onset of Symptoms : few days ago Ambulatory Intake Additional Information : no flu shot Temperature Core : 39.2 DegC(Converted to: 102.6 DegF) (HI) Peripheral Pulse Rate : 88 /min Systolic Blood Pressure : 126 mmHg Diastolic Blood Pressure : 82 mmHg NIBP Mean : 97 mmHg Actual Weight : 87 kg(Converted to: 191 lb 13 oz) Dosing Weight Clinic : 87 kg STEVE CERVANTES - 06/30/2014 17:02 AGRICULTURE EXTENSION SPECIALIST General Info Languages : Bahraini Is Patient Female and 13-50 no hysterectomy : Yes Status : Patient denies Are you ? : No STEVE CERVANTES Xavi 06/30/2014 17:02 AGRICULTURE EXTENSION SPECIALIST Subjective Pain Symptoms : Yes STEVE CERVANTES Xavi 06/30/2014 17:02 AGRICULTURE EXTENSION SPECIALIST Pain Pain Assessment Grid Pain 1 Location : Throat STEVE CERVANTES Xavi 06/30/2014 17:02 AGRICULTURE EXTENSION SPECIALIST Dependent Habits Tobacco Use/Currently Using : No Exposure to Tobacco Smoke : Care provider denies smoking in home Smoking Status : Never smoker STEVE CERVANTES - 06/30/2014 17:02 AGRICULTURE EXTENSION SPECIALIST Caffeine Use Grid Amount : very rare STEVE CERVANTES Xavi 06/30/2014 17:02 AGRICULTURE EXTENSION SPECIALIST ID Screen Travel Within Last 21 Days : No STEVE CERVANTES Xavi 06/30/2014 17:02 AGRICULTURE EXTENSION SPECIALIST Source: [facility] POWERCHART Document Id: [id number] AGRICULTURE EXTENSION SPECIALIST!32 CULTURE EXTENSION SPECIALIST documented in this encounter Plan of Treatment Not on filedocumented as of this encounter Procedures Procedure Name Priority Date/Time Associated Diagnosis Comme nts RAPID STREP A Routine 06/30/2014 5:13 PM Results for this SCREEN AGRICULTURE EXTENSION SPECIALIST procedure are i n the results section. documented in this encounter Results Rapid Strep A Screen (06/30/2014 5:13 PM AGRICULTURE EXTENSION SPECIALIST) [facility] Method Time Signature HXRapid Strep POWERCHART Confirmation HXPre Negative for POWERCHART Group A Strep by culture. HXFinal Negative for POWERCHART Group A Strep by culture. Specimen (Source) Anatomical Collection Method Collection Time Re ceived Time Location / / Volume Laterality Throat 06/30/2014 5:13 PM AGRICULTURE EXTENSION SPECIALIST Historical Provider LAB MICROBIOLOGY - GENERAL O RDERABLES Performing Organization Address City/State/ZIP Code Phon e Number POWERCHART documented in this encounter Visit Diagnoses Not on filedocumented in this encounter
--- OUTSIDE RECORDS SUMMARY | 2022-03-28 15:51 | XMS_ITS | Encounter Summary ---
:2000 Author Organization [facility] Address [address] [place] [address] Care Team Providers Name Role Phone Unavailable Primary Care Provider Unavailable Encounter Details Date Type Department Care Team Description 08/23/2013 Hospital Encounter HX [facility] Valerie Maya ED, M.D. [address] [place], [place] [phone] (Wo rk) Social History Tobacco Use Types [...] 07/21/2021 relatives? How often do you attend restorationist or church services? 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 documented as of this encounter Last Filed Vital Signs Vital Sign Reading Time Taken Comments Blood Pressure - - Pulse - - Temperature - - Respiratory Rate - - Oxygen Saturation - - Inhaled Oxygen Concentration - - Weight 85.1 kg (187 lb 9.8 oz) 08/23/2013 4:59 PM MULTI SLIDE MACHINE TENDER Height 171 cm (5' 7.32) 08/23/2013 4:59 PM MULTI SLIDE MACHINE TENDER Body Mass Index 29.1 08/23/2013 4:59 PM MULTI SLIDE MACHINE TENDER Body Mass Index Percentile 96.55 % 08/23/2013 4:59 PM CS T Growth Chart: CDC (Girls, 2-20 Years) documented in this encounter Discharge Summaries Perlita GregoryBrody - 08/23/2013 6:01 PM CST ED Discharge Instructions [facility] [address] [place] [address] Name: RUY NEGRETE Date of : 2000 12:00 PM Visit Date: 08/23/2013 4:54 PM [facility] Number: [id number] Address: [address] [place] [phone] Primary Care Provider: MELANIA BENITEZ MD IMPORTANT: [facility] in [place] would like to thank you for allowing us to assistyou with your healthcare needs. The following includes patient education materials and information regarding your injury/illness. Chief Complaint: Hip pain-swelling; RT SIDED HIP PAIN Follow-Up Instructions: With: Address: When: MELANIA BENITEZ [address] [place] [phone] Business (1) Within1 - 2 weeks, only if needed Comments: Patient Education Materials: [id number] R.I.C.E. Rest an injury, elevate it, and use ice and compression as directed. R.I.C.E. stands for Rest, Ice, Compression, and Elevation. These can limit pain and swelling after an injury. R.I.C.E. may be recommended to help treat fractures, sprains, strains, and bruises or bumps. This sheet tells you more about how to use R.I.C.E. at home. HOME CARE ?? Rest. Limit the use of the injured body part. This helps prevent further damage to the body part and gives it time to heal. In some cases, you may need a sling, brace, splint, or cast to help keep the body part still until it has healed. ?? Ice. Applying ice right after an injury helps relieve pain and swelling. Wrap a bag of ice in a thin towel. (Frozen peas also works well.) Then, place it over the injured area. Do this for 10 to 15 minutes every 3 to 4 hours. Continue for the next 1 to 2 days or until your symptoms improve. Never put ice directly on your skin or ice an area longer than 15 minutes at a time. ?? Compression. Putting pressure on an injury helps reduce swelling and provides support. Wrap the injured area firmly with an elastic bandage (CHINMAY wrap). Make sure not to wrap the bandage too tightly or you will cut off blood flow to the injured area. If your bandage loosens, rewrap it. Do not wear an elastic bandage overnight. ?? Elevation. Keeping an injury raised above the level of your heart reduces swelling, pain, and throbbing. For instance, if you have a broken leg, it may help to rest your leg on several pillows when sitting or lying down. FOLLOW UP as advised by the doctor or our staff. GET PROMPT MEDICAL ATTENTION if any of the following occurs: ?? Fever of 100.4??F (38??C) or higher, or as directed by your healthcare provider ?? Increased pain or swelling in the injured body part ?? Injured body part becomes cold, blue, or numb or tingly ?? Bleeding in the injured body part Signs of infection such as warmth in the skin, redness, drainage, or bad smell coming from the injured body part ?? [phone] [place] [address]. All rights reserved. This information is not intended as a substitute for professional medical care. Always follow your healthcare professional's instructions. ED Tests and Procedures: Order Status XR Pelvis 2 or less views Completed Discharge Prescriptions & Home Medications: Medication/Strength Dose Route Frequency Indications/Special Instructions/Comments/Notes cetirizine (ZyrTEC 10 mg oral tablet) 10 mg Oral once a day dextroamphetamine (Dexedrine Spansule 5 mg oral capsule, extended release) See Instructions 3 cap(s)PO Daily AM Attention: If you have any medications at home not on this list, DO NOT take them until you contact your provider for clarification. Give a copy of your medication list to your primary care provider. Update your medication list any time medications or doses are changed and carry your medication list at all times in case of emergency. Medication Reconciliation: Reconciliation is a process of identifying the most accurate list of all medications a patient is taking - including name, dosage, frequency, and route - and using this list to provide to the patient information about how to take those medications. RUY NEGRETE or bj has reviewed the home me dications you have listed with us. Review the following instructions: You have NOT received any prescriptions and you have told us you are not currently taking any home medications You have NOT received any prescriptions. You have been provided a discharge medications list and you may CONTINUE taking your medications as previously prescribed by your regular providers. You have received the listed prescriptions and BEGIN all listed prescriptions as directed. Since you have listed no home medications, please check with your family doctor if you are taking any other medications. You have received the listed prescriptions and BEGIN all listed prescriptions as directed. Youhave been provided a discharge medications list and you may CONTINUE all home medications as previously prescribed by your regular providers. You have received the listed prescriptions and BEGIN all listed prescriptions as directed. Youhave been provided a discharge medications list. The following CHANGES have been made to your medication list; Otherwise, CONTINUE all home medications as previously prescribed by your regular provider. IMPORTANT: We examined and treated you today on an emergency basis only. This was not a substitute for, or an effort to provide, complete medical care. In most cases, you must let your doctor check youagain. Tell your doctor about any new or lasting problems. We cannot recognize and treat all injuries or illnesses in one Emergency Department visit. If you had special tests, such as EKG's or X- rays, we will review them again within 24 hours. We will call you if there are any new suggestions. Please follow the instructions above carefully. If you are being transferred to another facility, your follow up plan of care will be determined by the receiving facility. If you are a patient that is being discharged from the Emergency Department after receiving narcotics or other medications that may impair your judgment you may be a risk to yourself or others if you operate a motor vehicle. We recommend that you arrange a ride home with a responsible libertarian. I, RUY NEGRETE , or responsible libertarian have received this information and my questions have been answered. I have discussed any challenges I see with this plan with the nurse or physician. Patient Signature or Responsible Constitution Party/Relationship Date Time Provider Signature Date Time Medication Reconciliation: Reconciliation is a process of identifying the most accurate list of all medications a patient is taking - including name, dosage, frequency, and route - and using this list to provide to the patient information about how to take those medications. RUY NEGRETE or bj has reviewed the home me dications you have listed with us. Review the following instructions: You have NOT received any prescriptions and you have told us you are not currently taking any home medications You have NOT received any prescriptions. You have been provided a discharge medications list and you may CONTINUE taking your medications as previously prescribed by your regular providers. You have received the listed prescriptions and BEGIN all listed prescriptions as directed. Since you have listed no home medications, please check with your family doctor if you are taking any other medications. You have received the listed prescriptions and BEGIN all listed prescriptions as directed. Youhave been provided a discharge medications list and you may CONTINUE all home medications as previously prescribed by your regular providers. You have received the listed prescriptions and BEGIN all listed prescriptions as directed. Youhave been provided a discharge medications list. The following CHANGES have been made to your medication list; Otherwise, CONTINUE all home medications as previously prescribed by your regular provider. IMPORTANT: We examined and treated you today on an emergency basis only. This was not a substitute for, or an effort to provide, complete medical care. In most cases, you must let your doctor check youagain. Tell your doctor about any new or lasting problems. We cannot recognize and treat all injuries or illnesses in one Emergency Department visit. If you had special tests, such as EKG's or X- rays, we will review them again within 24 hours. We will call you if there are any new suggestions. Please follow the instructions above carefully. If you are being transferred to another facility, your follow up plan of care will be determined by the receiving facility. If you are a patient that is being discharged from the Emergency Department after receiving narcotics or other medications that may impair your judgment you may be a risk to yourself or others if you operate a motor vehicle. We recommend that you arrange a ride home with a responsible libertarian. I, RUY NEGRETE Nanda , or responsible libertarian have received this information and my questions have been answered. I have discussed any challenges I see with this plan with the nurse or physician. Patient Signature or Responsible Constitution Party/Relationship Date Time Provider Signature Date Time This document has images extracted. Please consider using [employer] for all your patient education needs. Source: [facility] POWERCHART Document Id: [id number] I SLIDE MACHINE TENDER Perlita Gregory R.N. - 08/23/2013 6:01 PM CST ED Depart Summary [facility] Emergency Department Clinical Discharge Summary PERSON INFORMATION Name RUY NEGRETE Age 13 Years 2000 12:00 PM Sex Female Language Yakut PCP MELANIA BENITEZ MD Marital Status Single Visit Id Visit Reason Hip pain-swelling; RT SIDED HIP PAIN Specialty Enc Type Emergency Med Service Emergency Medicine Referred by Track Group MAQN ED Discharge 08/23/2013 6:01 PM Tracking Id [id number] Checkout 08/23/2013 6:01 PM Checkin 08/23/2013 4:54 PM Acuity 3 -Urgent Dispo Type * Discharged to Home or Self Care Arrival 08/23/2013 4:54 PM Reg Status LOS 000 01:07 Address: [address] [place] [phone] Comment: PROVIDER INFORMATION Provider Role Provider Contact Time DIAGNOSIS Juvenile apophysitis NOS Comment: PATIENT EDUCATION INFORMATION Instructions: R.I.C.E. Follow up: With: Address: When: MELANIA BENITEZ [address] [place] [phone] Business (6) Within1 - 2 weeks, only if needed Comments: Source: [facility] [employer] Document Id: [id number] I SLIDE MACHINE TENDER documented in this encounter ED Notes Perlita Gregory R.N. - 08/23/2013 5:59 PM CST ED Disposition Summary ED Disposition Summary Entered On: 08/23/2013 17:59 MULTI SLIDE MACHINE TENDER Performed On: 08/23/2013 17:59 MULTI SLIDE MACHINE TENDER by PERLITA GREGORY [employer] Disposition Summary Accompanied By : Mother Mode of Discharge : Ambulatory Transportation : Private vehicle Printed Discharge Instructions Given to Patient : Yes Patient Status at Discharge from ED : Improved PERLITA GREGORY RN - 08/23/2013 17:59 MULTI SLIDE MACHINE TENDER Source: [facility] [employer] Document Id: [id number] MULTI SLIDE MACHINE TENDER!7 I SLIDE MACHINE TENDER Valerie Mtz M.D. - 08/23/2013 5:50 PM CST Hip pain-swelling Patient: RUY NEGRETE Age: 13 years Sex: Female : 2000 Author: JEFF MTZ MD Attachments: None Associated Diagnosis: Juvenile apophysitis NOS Basic Information Additional information: Chief Complaint from Nursing Triage Note : Chief Complaint Description 08/23/2013 16:59 MULTI SLIDE MACHINE TENDER Chief Complaint Description 13yr old presents with right sided hip pain x 2weeks. Patient states that rt hip was more painful yesterday at school. No history of any injury. . History of Present Illness Right hip pain times two weeks. She is active in gym class but mostly sedentary at home. She does not remember a specific injury. She has not been having a fever or feeling ill. Hip Injury-Pain The patient presents with Right. and hip pain. , The onset was 2 weeks ago. , The course/duration of symptoms is constant. , Type of injury: none. , Location: Right pelvis. , The character of symptoms is pain. , The degree at onset was moderate. , The degree at present is minimal. , The exacerbating factor is Seems to randomly flare-up. . and The relieving factor is none. . Review of Systems Constitutional symptoms: Negative except as documented in HPI. ENMT symptoms: Patient has some jaw misalignment. Surgery is ultimately anticipated once she is donegrowing. . Musculoskeletal symptoms: Negative except as documented in HPI. Health Status Allergies: Allergic Reactions (Selected) NKA. Past Medical/ Family/ Social History Surgical history: No active procedure history items have been selected or recorded.. Family history: No family history items have been selected or recorded.. Physical Examination Vital Signs: Vital Signs 08/23/2013 16:59 MULTI SLIDE MACHINE TENDER Temperature Core 36.7 DegC Peripheral Pulse Rate 77 /min Respiratory Rate 16 /min SpO2 97 % Systolic Blood Pressure 126 mmHg Diastolic Blood Pressure 80 mmHg Mean Arterial Pressure 95 mmHg BP Location Left upper , Measurements 08/23/2013 16:59 MULTI SLIDE MACHINE TENDER Height 171 cm Height Source Measured Dosing Weight 85.10 kg Actual Weight 85.1 kg Weight Source Standing scale Body Mass Index 29.1 kg/m2 , SpO2 08/23/2013 16:59 MULTI SLIDE MACHINE TENDER SpO2 97 % . General: Alert and no acute distress. Skin: Warm, dry, pink and intact. Musculoskeletal: The right hip joint is nontender to palpation and without erythema or warmth. However, the patient is tender on the top of a right iliac crest, exactly reproducing her symptoms. It does not seem to be with made worse by any particular muscular movement. Neurological: Alert and oriented to person, place, time, and situation and No focal neurological deficit observed. Psychiatric: Cooperative. Medical Decision Making Hip x-ray findingsAP view of the pelvis is negative. 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 There does not seem to be any moreominous diagnosis. Specifically there is nothing to suggest septic arthritis or occult fracture. I have outlined a plan of action of ibuprofen, ice and activity modification with followup in 1 to 2 weeks if not improving. . Reexamination/ Reevaluation Vital signs SpO2 08/23/2013 16:59 MULTI SLIDE MACHINE TENDER SpO2 97 % Impression and Plan Diagnosis Juvenile apophysitis NOS (Discharge, Emergency medicine, Medical) Plan Disposition: Discharged: Time 08/23/2013 17:51:00, to home. Limitations: No PE times 10 days. A note as given to this effect. . Follow up with: MELANIA BENITEZ Within 1 - 2 weeks, only if needed. Counseled: Patient, Family. Electronically Signed By: JEFF MTZ MD On: 08/23/2013 06:00 PM [facility] Document Id: [id number]} I SLIDE MACHINE TENDER Perlita Gregory R.N. - 08/23/2013 5:20 PM CST ED Nurse Reassess ED Nurse Reassess Entered On: 08/23/2013 17:20 MULTI SLIDE MACHINE TENDER Performed On: 08/23/2013 17:20 MULTI SLIDE MACHINE TENDER by PERLITA GREGORY RN Pain Assessment Pain Symptoms : Yes PERLITA GREGORY RN - 08/23/2013 17:20 MULTI SLIDE MACHINE TENDER Comfort Measures Comfort Measures Grid Comfortable Environment : Yes PERLITA GREGORY RN - 08/23/2013 17:20 MULTI SLIDE MACHINE TENDER Comfort Measures Response : Comfort level increased PERLITA GREGORY RN - 08/23/2013 17:20 MULTI SLIDE MACHINE TENDER Source: [employer] Document Id: [id number] MULTI SLIDE MACHINE TENDER!7 I SLIDE MACHINE TENDER Perlita Gregory R.N. - 08/23/2013 4:59 PM CST ED Primary Assessment Document Has Been Updated ED Primary Assessment Entered On: 08/23/2013 17:04 MULTI SLIDE MACHINE TENDER Performed On: 08/23/2013 16:59 MULTI SLIDE MACHINE TENDER by PERLITA GREGORY RN Reason For Visit (As Of: 08/23/2013 17:04:51 MULTI SLIDE MACHINE TENDER) Problems(Active) Hip pain-swelling (PNED :[id number] ) Name of Problem: Hip pain-swelling ;Onset Date: 08/23/2013 ; Recorder: PERLITA GREGORY RN; Confirmation: Complaint of ; Classification: Medical ; Code: [id number] ; Last Updated: 08/23/2013 17:00 MULTI SLIDE MACHINE TENDER ; Life CycleStatus: Active ; Responsible Provider: PERLITA GREGORY RN; Vocabulary: PNED Diagnoses(Active) Hip pain-swelling Date: 08/23/2013 ; Diagnosis Type: Reason For Visit ; Confirmation: Complaint of ;Clinical Dx: Hip pain-swelling ; Classification: Medical ; Clinical Service: Emergency medicine ; Code: PNED ; Probability: 0 ; Diagnosis Code: [id number] Triage Chief Complaint Description : 13yr old presents with right sided hip pain x 2weeks. Patient states that rt hip was more painful yesterday at school. No history of any injury. Information Given By : Patient Accompanied By : Mother Mode of Arrival ED : Private vehicle Track : Medical Languages : Yakut Vital Signs Assessed : Yes Treatments Prior to Arrival : Home treatments PERLITA GREGORY RN - 08/23/2013 17:00 MULTI SLIDE MACHINE TENDER Vital Signs Temperature Core : 36.7 DegC(Converted to: 98.1 DegF) Peripheral Pulse Rate : 77 /min Respiratory Rate : 16 /min Systolic Blood Pressure : 126 mmHg Diastolic Blood Pressure : 80 mmHg NIBP Mean : 95 mmHg BP Location : Left upper extremity SpO2 : 97 % Oxygen Therapy : Room air Height : 171 cm(Converted to: 5 ft 7 inch(es)) Actual Weight : 85.1 kg Actual Weight Conversion to Pounds : 187.22 lb Weight Source : Standing scale Height Source : Measured Body Mass Index : 29.1 kg/m2 PERLITA GREGORY RN - 08/23/2013 17:00 MULTI SLIDE MACHINE TENDER Pain Assessment Pain Symptoms : Yes PERLITA GREGORY 08/23/2013 17:00 MULTI SLIDE MACHINE TENDER Pain Pain Assessment Grid Pain 1 Location : Hip Intensity : 6 Time Pattern : Intermittent Quality : Other: feels like it is being stabbed. PERLITA GREGORY 08/23/2013 17:00 MULTI SLIDE MACHINE TENDER JOSE JOSE Level 1 : No JOSE Level 2 : No JOSE Level 3 : Many Vital Signs JOSE : No PERLITA GREGORY 08/23/2013 17:00 MULTI SLIDE MACHINE TENDER DCP GENERIC CODE Tracking Acuity : 3 -Urgent Tracking Group : MAQN ED PERLITA GREGORY 08/23/2013 17:00 MULTI SLIDE MACHINE TENDER Allergy (As Of: 08/23/2013 17:04:51 MULTI SLIDE MACHINE TENDER) Allergies (Active) NKA Estimated Onset Date: Unspecified ; Created By: MAJOR TREADWELL LPN; Reaction Status: Active ;Category: Drug ; Substance: NKA ; Type: Allergy ; Updated By: MAJOR TREADWELL LPN; Reviewed Date: 12/11/2012 16:35 CDT Respiratory Airway : Patent Respirations : Unlabored Respiratory Pattern : Regular PERLITA GREGORY 08/23/2013 17:00 MULTI SLIDE MACHINE TENDER Cardiovascular Heart Rhythm : Regular Skin Color : Normal for ethnicity Skin Description : Dry Skin Temperature : Warm PERLITA GREGORY 08/23/2013 17:00 MULTI SLIDE MACHINE TENDER Neurological Last Well Time Known : Not applicable Level of Consciousness : Alert Orientation : Oriented x 3 Characteristics of Speech : Clear PERLITA GREGORY 08/23/2013 17:00 MULTI SLIDE MACHINE TENDER ED Psychosocial Affect/Behavior : Calm, Cooperative, Appropriate Domestic Abuse Concerns : None Emotional Support Available : Yes PERLITA GREGORY 08/23/2013 17:00 MULTI SLIDE MACHINE TENDER Gastrointestinal Nutrition ED : Adequate PERLITA GREGORY 08/23/2013 17:00 MULTI SLIDE MACHINE TENDER Musculoskeletal Fall Prevention Education Provided : NA PERLITA GREGORY 08/23/2013 17:00 MULTI SLIDE MACHINE TENDER Social Habits Tobacco Use/Currently Using : No Exposure to Tobacco Smoke : Care provider denies smoking in home Smoking Status : Never smoker PERLITA GREGORY 08/23/2013 17:00 MULTI SLIDE MACHINE TENDER Source: [facility] POWERCHART Document Id: [id number] MULTI SLIDE MACHINE TENDER!69 I SLIDE MACHINE TENDER documented in this encounter Miscellaneous Notes Miscellaneous - Perlita Gregory R.N. - 08/23/2013 5:59 PM CST Valuables/Belongings Valuables/Belongings Entered On: 08/23/2013 17:59 MULTI SLIDE MACHINE TENDER Performed On: 08/23/2013 17:59 MULTI SLIDE MACHINE TENDER by PERLITA GREGORY RN Valuables/Belongings Home Medication Disposition : None brought in with patient PERLITA GREGORY RN - 08/23/2013 17:59 MULTI SLIDE MACHINE TENDER Source: [facility] POWERCHART Document Id: [id number] MULTI SLIDE MACHINE TENDER!3 I SLIDE MACHINE TENDER Miscellaneous - Perlita Gregory R.N. - 08/23/2013 4:54 PM CST Facility Charge Ticket 2.0 11.0 DX Facility Charge Ticket 2.0 11.0 DX Entered On: 08/23/2013 18:00 MULTI SLIDE MACHINE TENDER Performed On: 08/23/2013 16:54 MULTI SLIDE MACHINE TENDER by PERLITA GREGORY RN Facility Charge Ticket 2.0 11.0 DX ED Other Charges : Standard ED Encounter TVL Level Translated RTF : Hip pain-swelling TVL:3 TVL Level for Facility Charge Ticket : Level 3 Arrival Mode Calc : 1 Mode of Arrival ED : Private vehicle [facility] Mode of Arrival Interpreted : Standard [facility] Process Management : None Order Management RTF : Xray XR Pelvis 2 or less views,08/23/13 17:15,JEFF MTZ MD Completed [facility] Order Management : Xray - plain films 30 Minutes Critical Care : No Nursing Notes RTF : Nursing Notes ED Primary Assessment,08/23/13 16:59,PERLITA GREGORY [employer] Nurse Reassess,08/23/13 17:20,PERLITA GREGORY RN [facility] Nursing Assessment : Triage and 1-2 nursing assessments [facility] Disposition : Discharge [facility] Total Points with Diagnosis Control : 6 [facility] Visit Level : 71526 Level 3 Treatments Prior to Arrival : Home treatments PERLITA GREGORY RN - 08/23/2013 17:59 MULTI SLIDE MACHINE TENDER Source: [facility] POWERCHART Document Id: [id number] MULTI SLIDE MACHINE TENDER!18 I SLIDE MACHINE TENDER documented in this encounter Plan of Treatment Not on filedocumented as of this encounter Procedures Procedure Name Priority Date/Time Associated Diagnosis Comme nts DX PELVIS 1-2 VIEWS Routine 08/23/2013 5:48 PM Re sults for this MULTI SLIDE MACHINE TENDER procedure are i n the results section. documented in this encounter Results DX Pelvis 1-2 Views (08/23/2013 5:48 PM MULTI SLIDE MACHINE TENDER) Anatomical Region Laterality Modality Pelvis N/A Radiographic Imaging Specimen (Source) Anatomical Collection Method Collection Time Re ceived Time Location / / Volume Laterality 08/23/2013 5:48 PM MULTI SLIDE MACHINE TENDER Addenda Addendum by Provider, Allie Davis 08/23/2013 5:48 PM MULTI SLIDE MACHINE TENDER RAD^^^MA XR Pelvis 2 or less views 08/23/2013 17:48:00 Narrative 08/23/2013 5:51 PM MULTI SLIDE MACHINE TENDER COMPARISON: None. HISTORY: 13 year old female with pain. Findings: There is no acute pelvic osseo us abnormality. Bone mineralization is within normal limits. The visualized joint spaces are preserved. Impression: No acute pelvic osseous abno rmality. Procedure Note Nas Ricks M.D. / Provider, Fidel olivas M.D. - 11/24/2016 COMPARISON: None. HISTORY: 13 year old female with pain. Findings: There is no acute pelvic osseo us abnormality. Bone mineralization is within normal limits. The visualized joint spaces are preserved. Impression: No acute pelvic osseous abno rmality. Rico Ron(Nanda)(CT), Asaf(R) IMG DIAGNOSTIC RUPESH GING PROCEDURES documented in this encounter Visit Diagnoses Not on filedocumented in this encounter
--- OUTSIDE RECORDS SUMMARY | 2022-03-28 15:51 | XMS_ITS | Encounter Summary ---
:2000 Author Organization [facility] Address [address] [place] [address] Care Team Providers Name Role Phone Unavailable Primary Care Provider Unavailable Encounter Details Date Type Department Care Team Description 12/11/2012 Hospital Encounter HX [facility] Jose L Dominguez M.D. [address] [place] [address] (Wo rk) Social History Tobacco [...] How often do you attend orthodox or alevism services? 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 - 12/11/2012 4:25 PM CDT [id number] CHIEF COMPLAINT/REASON FOR VISIT The patient presents for inversion injury to her right ankle. This occurred yesterday morning and Phys Ed. She got tangled up with another runner and twisted it. She inverted it and she has had pain inthe lateral ankle since that time. She was unable to bear weight after the injury and now at the time of examination. She and her mother talk about problem with that foot and ankle in the past and thatrequired a cortisone injection. This was 2 months ago and it has finally felt good. She had had a fracture as well 3 years ago. Past medical history is otherwise negative. SOCIAL HISTORY The patient is not exposed to smoke. FAMILY HISTORY Noncontributory. SYSTEMS REVIEW The patient denies any other injury. VITAL SIGNS Heart rate 80, blood pressure 114/70. PHYSICAL EXAMINATION The right ankle reveals significant swelling about lateral malleolus. There is tenderness along the posterior aspect of the lateral malleolus, the tip of lateral malleolus and anteriorly. There is tenderness over the anterior talofibular ligament. There is no tenderness over the medial illness. Anterior drawer testing is normal. There is pain with inversion stressing but with solid end point. X-ray of the ankle shows no fracture or dislocations. IMPRESSION/REPORT/PLAN Inversion sprain right ankle. PLAN: 1. Would take Tylenol or ibuprofen as needed for discomfort. 2. Would bear weight as tolerated. 3. Would splint for high-risk activities. 4. Would expect 90% improvement over 2 weeks and I would have her follow up in 1 week if she is not improving. 5. Would start 1 leg standing exercises in about 2 weeks to avoid reinjury. Jose L Khanna M.D./tel Electronically Signed By: JOSE L KHANNA MD On: 12/19/2012 02:18 PM Source: [facility] MHSDOLBEYNONRADSYS Document Id: [id number] documented in this encounter Miscellaneous Notes Miscellaneous - Jose L Khanna M.D. - 12/11/2012 5:29 PM CDT Ambulatory Depart Summary [place] - [address] [address] Visit Information Name: RUY NEGRETE [facility] Number: [id number] Visit Date: 12/11/2012 17:29:57 Attending Provider: JOSE L KHANNA MD Primary Care Provider: MELANIA BENITEZ MD RUY NEGRETE has been given the following list of medications: Your Medications It is important to take your medications as directed. Use a pill box or chart to help remind you to take your medications. Please let your doctor or nurse know if you have problems taking your medications. Medication/Strength Dose Route Frequency Indications/Special Instructions/Comments dextroamphetamine (Dexedrine Spansule 5 mg oral capsule, extended release) See Instructions 3 cap(s)PO Daily AM Attention: If you have any medications at home that are not on this list, DO NOT take them until youcontact your provider for clarification. Additional Information: Source: [facility] POWERCHART Document Id: [id number] Miscellaneous - Jose L Khanna M.D. - 12/11/2012 5:29 PM CDT Ambulatory Patient Summary [address] [address] Visit Information Name: RUY NEGRETE [facility] Number: [id number] Current Date: 12/11/2012 17:29:57 Physicians Attending Provider: JOSE L KHANNA MD Primary Care Provider: MELANIA BENITEZ MD Your Medications Here is a list of your medications. It is important to take your medications as directed. Use a pillbox or chart to help remind you to take your medications. Please let your doctor or nurse know if you have problems taking your medications. Medication/Strength Dose Route Frequency Indications/Special Instructions/Comments dextroamphetamine (Dexedrine Spansule 5 mg oral capsule, extended release) See Instructions 3 cap(s)PO Daily AM Attention: If you have any medications at home that are not on this list, DO NOT take them until youcontact your provider for clarification. Your Allergies & Intolerances Substance Reaction Symptoms Category Comments No Known Allergies Drug Your Problem List Problem Status Onset Comments No current problems or disability Active Your Upcoming Appointments Date Time Location Reason Provider No Appointments found Your Goals/Additional instructions: Source: [facility] POWERCHART Document Id: [id number] Miscellaneous - Laura Chavez L.PRaquel - 12/11/2012 4:29 PM CDT Pediatric Beef Splitter Intake/History Pediatric Beef Splitter Intake/History Entered On: 12/11/2012 16:34 CDT Performed On: 12/11/2012 16:29 CDT by LAURA CHAVEZ LPN Intake Chief Complaint : Injured right ankle yesterday while running in [facility] ED. Previous fracture 3 years ago with problems ever since. Had Cortisone shot about 2 mos ago and it was finally feeling good. Peripheral Pulse Rate : 80 /min Heart Rhythm : Regular Systolic Blood Pressure : 114 mmHg Diastolic Blood Pressure : 70 mmHg NIBP Mean : 85 mmHg BP Location : Right upper extremity Blood Pressure Cuff Size : Regular Weight Source : Other: unable, on crutches LAURA CHAVEZ LPN - 12/11/2012 16:29 CDT General Info Mode of Arrival : Ambulatory Accompanied By : Mother Information Given By : Patient, Mother Languages : Kenyan BERNICELAURA LPN - 12/11/2012 16:29 CDT Subjective Pain Symptoms : Yes LAURA CHAVEZ LPN - 12/11/2012 16:29 CDT Pain Pain Assessment Grid Pain 1 Intensity : 10 LAURA CHAVEZ LPN - 12/11/2012 16:29 CDT Effects of Pain Grid Work/School : Severe (Comment: with boot off pain a 10 [LAURA CHAVEZ LPN - 12/11/2012 16:29 CDT] ) LAURA CHAVEZ LPN - 12/11/2012 16:29 CDT Dependent Habits Tobacco Use/Currently Using : No Smoking Status : Never smoker Alcohol Use : No LAURA CHAVEZ LPN - 12/11/2012 16:29 CDT Caffeine Use Grid Amount : very rare LAURA CHAVEZ LPN - 12/11/2012 16:29 CDT Source: [facility] POWERCHART Document Id: [id number] documented in this encounter Plan of Treatment Not on filedocumented as of this encounter Procedures Procedure Name Priority Date/Time Associated Diagnosis Comme nts DX ANKLE RIGHT 3+ Routine 12/11/2012 4:56 PM Resu lts for this VIEWS CDT procedure are i n the results section. documented in this encounter Results DX Ankle Right 3+ Views (12/11/2012 4:56 PM CDT) Anatomical Region Laterality Modality Lower Extremity, Ankle Right Radiographic Imag ing Specimen (Source) Anatomical Collection Method Collection Time Re ceived Time Location / / Volume Laterality 12/11/2012 4:56 PM CDT Addenda Addendum by Provider, Allie Davis o kristina 12/11/2012 4:56 PM CDT RAD^^^MA XR Ankle Right 3 or more views 12/11/2012 16:56:00 Impressions 12/11/2012 5:09 PM CDT Soft tissue swelling, no fracture. Narrative 12/11/2012 5:09 PM CDT EXAM: XR Ankle Right 3 or more views INDICATION: inversion injury COMPARISON: None. FINDINGS: There is soft tissue swelling at the lateral aspect of the ankle and hindfoot. No fracture is ident ified. There is an apparent small accessory ossicle at the tip of th e lateral malleolus as a normal variant. There is an ovoid sclero tic density in the distal tibial shaft consistent with a benign sc lerotic bone island. Ankle mortise is preserved and epiphyses are u nremarkable for age. Procedure Note Olegario Ortega Jr., M.D. / Ryan Costa M.D. - 12/01/2016 EXAM: XR Ankle Right 3 or more views INDICATION: inversion injury COMPARISON: None. FINDINGS: There is soft tissue swelling at the lateral aspect of the ankle and hindfoot. No fracture is ident ified. There is an apparent small accessory ossicle at the tip of th e lateral malleolus as a normal variant. There is an ovoid sclero tic density in the distal tibial shaft consistent with a benign sc lerotic bone island. Ankle mortise is preserved and epiphyses are u nremarkable for age. IMPRESSION: Soft tissue swelling, no fra cture. Sidney Gurrola XEOMN IMG DIAGNOSTIC IMAGING PROCE DURES documented in this encounter Visit Diagnoses Not on filedocumented in this encounter
--- OUTSIDE RECORDS SUMMARY | 2022-03-28 15:51 | XMS_ITS | Encounter Summary ---
:2000 Author Organization [facility] Address [address] [place] [address] Care Team Providers Name Role Phone Unavailable Primary Care Provider Unavailable Encounter Details Date Type Department Care Team Description 09/10/2012 Hospital Encounter [facility]X [facility] Reuben Negron M.D. [address] [place] [phone] (Wo rk) Social History Tobacco Use Types [...] How often do you attend hinduism or mandaen services? 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 - 09/10/2012 3:48 PM CST [id number] CHIEF COMPLAINT/REASON FOR VISIT Right ankle pain. HISTORY OF PRESENT ILLNESS A 12-year-old female complains of a 3-year history of ongoing right ankle problems. She apparently had a sprain to her right ankle and it is a little bit nebulous obtaining some history as to how this actually occurred. Ruy is not providing much reliable history and her mother is not certain actually as to what the actual injury was, although she does recall there being swelling and ecchymosis on the lateral aspect of ankle; therefore, I am suspecting it was an inversion type of rollover sprain. Since that time she has had intermittent pains and complaints with the ankle. This led to a podiatry evaluation in [place] this fall, during which Ruy underwent an x-ray and also an MRI of her ankle. I do not have these results available to review. Ruy's mother states that there might have beensome flattening of a ligament, but other than that she states that nothing was found. They have tried some physical therapy and she actually went into a splint device for 6 weeks; still complains of the same issues, which primarily are lateral ankle pain and sometimes a pinching sensation. She does not swell at this point. Ruy is currently not physically active. PAST MEDICAL/SURGICAL HISTORY Past medical history is negative for other major illnesses. SYSTEMS REVIEW Denies any other joint complaints. She has had no history of eczema or psoriasis. No numbness or tingling noted. PHYSICAL EXAMINATION Heart rate 76, respiratory rate is 16, body mass index 26.9. Examination of both ankles and feet show symmetric appendages. She does not have any swelling of the right ankle. Mother thinks that there is some black and blue discoloration about the inferior ankle, but this is difficult for me to appreciate. She has some mild tenderness over the lateral talus, inferior to the fibula. There is no pain tothe inferior pole of the fibula. There is no crepitation with range of motion, and she appears to have normal range of motion. I do not see any significant ligament laxity. IMPRESSION/REPORT/PLAN Chronic right ankle pain, refractory to recent workup and treatment that apparently included some immobilization and physical therapy. PLAN: I am recommending a second podiatry opinion and will make some arrangements at the [facility], either with Dr. Stock or Zulay. I have encouraged mother to collect the data that will be needed for that appointment, including preferably a consultation report, x-ray and report, MRI and report. I elected not to proceed with any further imaging at this time. Ruy does not appear to be in need of any immediate treatment as far as today's visit is concerned. Lionel Luo M.D./sharmila DOCID: [id number] Electronically Signed By: LIONEL LUO MD On: 09/17/2012 01:37 PM Source: [facility] MHSDOLBEYNONRADSYS Document Id: [id number] INSPECTOR documented in this encounter Miscellaneous Notes Miscellaneous - Lionel Luo M.D. - 09/11/2012 8:17 AM CST Ambulatory Patient Summary [place] [address] [place] [address] Visit Information Name: RUY NEGRETE [facility] Number: [id number] Current Date: 09/11/2012 08:17:34 Physicians Attending Provider: LIONEL LUO MD Primary Care Provider: LIONEL LUO MD Your Medications Here is a list [...] Problem List Problem Status Onset Comments No Problems found Your Upcoming Appointments Date Time Location Reason Provider No Appointments found Your Goals/Additional instructions: Source: [facility] Document Id: [id number] Lionel Leger M.D. - 09/11/2012 8:17 AM CST Ambulatory Depart Summary [address] [address] Visit Information Name: RUY NEGRETE [facility] Number: [id number] Visit Date: 09/11/2012 08:17:33 Attending Provider: LIONEL LUO MD Primary Care Provider: LIONEL LUO MD RUY NEGRETE has been given the [...] your provider for clarification. Additional Information: Source: [facility] Document Id: [id number] IDA Flores - Meron Treadwell L.P.N. - 09/10/2012 4:04 PM CST Pediatric Health Care Coach Intake/History Pediatric Health Care Coach Intake/History Entered On: 09/10/2012 16:07 TIRE INSPECTOR Performed On: 09/10/2012 16:04 TIRE INSPECTOR by MERON TREADWELL LPN Intake Chief Complaint : Rt ankle pain. Old injury 3 years ago.Check bump on side of foot. Peripheral Pulse Rate : 76/min Respiratory Rate : 16/min Height : 170cm(Converted to: 5ft 7inch(es), 66.93inch(es)) Actual Weight : 77.8kg(Converted to: 171lb 8oz) Dosing Weight Clinic : 77.80kg Clinic BSA : 1.92 Body Mass Index : 26.92kg/m2 MERON TREADWELL LPN - 09/10/2012 16:04 TIRE INSPECTOR General Info Accompanied By : Mother Languages : Prydeinig MERON TREADWELL LPN - 09/10/2012 16:04 TIRE INSPECTOR Subjective Pain Symptoms : Yes MERON TREADWELL LPN - 09/10/2012 16:04 TIRE INSPECTOR Pain Pain Assessment Grid Pain 1 Location : Ankle Laterality : Right MERON TREADWELL LPN - 09/10/2012 16:04 TIRE INSPECTOR Dependent Habits Tobacco Use/Currently Using : No Smoking Status : Never smoker MERON TREADWELL LPN - 09/10/2012 16:04 TIRE INSPECTOR Allergy Allergies (Active) NKA Estimated Onset Date: Unspecified ; Created By: MERON TREADWELL LPN; Reaction Status: Active ;Category: Drug ; Substance: NKA ; Type: Allergy ; Updated By: MERON TREADWELL LPN; Reviewed Date: 09/10/2012 16:02 TIRE INSPECTOR Source: [facility] POWERCHART Document Id: [id number] INSPECTOR documented in this encounter Plan of Treatment Not on filedocumented as of this encounter Visit Diagnoses Not on filedocumented in this encounter
--- OUTSIDE RECORDS SUMMARY | 2022-03-28 15:51 | XMS_ITS | Encounter Summary ---
:2000 Author Organization [facility] Address [address] [place] [address] Care Team Providers Name Role Phone Unavailable Primary Care Provider Unavailable Encounter Details Date Type Department Care Team Description 12/28/2014 Hospital Encounter [facility]X [facility] Reubne Negron M.D. [address] [place] [phone] (Wo rk) Social History Tobacco Use Types [...] How often do you attend druze or yazidism services? Never 07/21/2021 Do you belong to [...] slept in a group home (including now)? 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 - 12/28/2014 1:16 PM CDT [id number] CHIEF COMPLAINT/REASON FOR VISIT Cough. HISTORY OF PRESENT ILLNESS A 14-year-old male who has been coughing for the past 9 days or so. It would appear that his symptoms have improved slightly since yesterday, but still has a nonproductive cough. No fever, sweats, or chills. This young man was seen in urgent care December 16 for ear related symptoms, and was not having any respiratory tract problems at that time. PAST MEDICAL/SURGICAL HISTORY Negative for pneumonia or asthma. SYSTEMS REVIEW No fever, chills, or sweats. No sputum production or hemoptysis. No chest pain. No abdominal pain, vomiting, or diarrhea. PHYSICAL EXAMINATION VITAL SIGNS: Temp 36, heart rate 100, blood pressure is 104/64, weight 87 kilos. SKIN: Is warm and dry. No neck vein distention. LUNGS: Sound clear. HEART: Rhythm is regular. HEENT: TMs and ear canals are both clear. Nose is not draining. Pharynx is not injected. No exudate.No neck tenderness, swelling, or mass. IMPRESSION/REPORT/PLAN Acute bronchitis. PLAN: Continue with supportive cares. If no improvement in 3 to 4 days, would consider antibiotic treatment, although it would appear that Ruy has turned the corner. I have explained that he may cough for another week or so, but overall he is feeling improved so I anticipate persistent improvement overall. Lionel Luo M.D./pos Electronically Signed By: LIONEL LUO MD On: 01/05/2015 02:08 PM Source: [facility] MHSDOLBEYNONRADSYS Document Id: [id number] documented in this encounter Miscellaneous Notes Miscellaneous - Lionel Luo M.D. - 12/28/2014 2:03 PM CDT Ambulatory Patient Summary [address] [place], [place] [id number] Visit Information Name: RUY NEGRETE [facility] Number: [id number] Current Date: 12/28/2014 14:03:40 Physicians Attending Provider: LIONEL LUO MD Primary Care Provider: LIONEL LUO MD HIGINIORUY SURESH has been given the following list of [...] Take Indications/Special Instructions/Comments/Notes for Patient Medication Changes/Routing azithromycin (Zithromax 250 mg oral tablet) 2 tablets on day 1, then 1 tablet on days 2-5, Oral, as directed x 5 day(s) New Routed to [facility] [address] [place] [id number] dextroamphetamine (Dexedrine Spansule 5 mg oral capsule, extended release) 3 cap, Oral, once a day (in the morning) levonorgestrel-ethinyl estradiol (Lutera 100 mcg-20 mcg oral tablet) 1 Tablet(s), Oral, once a day Stop Taking the Following Medications: cetirizine (ZyrTEC 10 mg oral tablet) Medication list as of 12-28-14 14:03 Attention: If you have any medications at home that are not on this list, DO NOT take them until youcontact your provider for clarification. Give a copy of your medication list to your primary care provider. Update your medication list any time medications or doses are changed and carry your medication list at all times in case of emergency. Electronically Signed By: LIONEL LUO MD Signed On:28-DEC-2014 14:03:22 Your Allergies & Intolerances Substance Reaction Symptoms Category Comments No Known Allergies Drug Your Problem List Problem Status Onset Comments Hip pain-swelling Active 08/23/2013 Your Upcoming Appointments Date Time Location Provider No Appointments found Attention: Contact your local Clinic if further appointment detail needed. Your Goals/Additional instructions: Source: [facility] POWERCHART Document Id: [id number] Miscellaneous - Lionel Luo M.D. - 12/28/2014 2:03 PM CDT Ambulatory Discharge Medication List [address] [id number] Visit Information Name: RUY NEGRETE [facility] Number: [id number] Visit Date: 12/28/2014 14:03:38 Attending Provider: LIONEL LUO MD Primary Care Provider: LIONEL LUO MD RUY NEGRETE SUMIT has been given the following list of medications: Your Medications It is important to take your medications as directed. Use a pill box or chart to help remind you to take your medications. Please let your doctor or nurse know if you have problems taking your medications. Medication/Strength How to Take Indications/Special Instructions/Comments/Notes for Patient Medication Changes/Routing azithromycin (Zithromax 250 mg oral tablet) 2 tablets on day 1, then 1 tablet on days 2-5, Oral, as directed x 5 day(s) New Routed to [facility] [address] [place] [id number] dextroamphetamine (Dexedrine Spansule 5 mg oral capsule, extended release) 3 cap, Oral, once a day (in the morning) levonorgestrel-ethinyl estradiol (Lutera 100 mcg-20 mcg oral tablet) 1 Tablet(s), Oral, once a day Stop Taking the Following Medications: cetirizine (ZyrTEC 10 mg oral tablet) Medication list as of 12-28-14 14:03 Attention: If you have any medications at home that are not on this list, DO NOT take them until youcontact your provider for clarification. Give a copy of your medication list to your primary care provider. Update your medication list any time medications or doses are changed and carry your medication list at all times in case of emergency. Electronically Signed By: LIONEL LUO MD Signed On:28-DEC-2014 14:03:22 Additional Information: Source: [facility] POWERCHART Document Id: [id number] Miscellaneous - Meron Treadwell L.P.N. - 12/28/2014 1:22 PM CDT Pediatric Concrete Saw Operator Intake/History Pediatric Concrete Saw Operator Intake/History Entered On: 12/28/2014 13:24 CDT Performed On: 12/28/2014 13:22 CDT by MERON TREADWELL LPN Intake Chief Complaint : cough x 9 days Temperature Core : 36.4 DegC(Converted to: 97.5 DegF) (LOW) Peripheral Pulse Rate : 108 /min (HI) Systolic Blood Pressure : 104 mmHg Diastolic Blood Pressure : 64 mmHg NIBP Mean : 77 mmHg SpO2 : 98 % Height : 172 cm(Converted to: 5 ft 8 inch(es), 68 inch(es)) Actual Weight : 87.8 kg(Converted to: 193 lb 9 oz) Dosing Weight Clinic : 87.8 kg Clinic BSA : 2.05 Body Mass Index : 29.68 kg/m2 MERON TREADWELL LPN - 12/28/2014 13:22 CDT General Info Accompanied By : Mother Languages : Mongolian Is Patient Female and 13-50 no hysterectomy : Yes Status : Patient denies Are you ? : No MERON TREADWELL LPN - 12/28/2014 13:22 CDT Subjective Pain Symptoms : No MERON TREADWELL LPN - 12/28/2014 13:22 CDT Dependent Habits Tobacco Use/Currently Using : No Exposure to Tobacco Smoke : Care provider denies smoking in home Smoking Status : Never smoker MERON TREADWELL LPN - 12/28/2014 13:22 CDT Caffeine Use Grid Amount : very rare MERON TREADWELL LPN - 12/28/2014 13:22 CDT Source: [facility] LMN-1CHART Document Id: [id number] CDT!29 documented in this encounter Plan of Treatment Not on filedocumented as of this encounter Visit Diagnoses Not on filedocumented in this encounter
--- OUTSIDE RECORDS SUMMARY | 2022-03-28 15:51 | XMS_ITS | Encounter Summary ---
:2000 Author Organization [facility] Address [address] [place] [address] Care Team Providers Name Role Phone Unavailable Primary Care Provider Unavailable Encounter Details Date Type Department Care Team Description 02/25/2014 Hospital Encounter HX [facility] Ron Lopes, [employer], C.N.P. [address] [place] [phone] (Wo rk) Social History Tobacco [...] How often do you attend cheondoism or mandaeism services? 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 - 02/25/2014 12:48 PM CDT [id number] CHIEF COMPLAINT/REASON FOR VISIT Dysmenorrhea. HISTORY OF PRESENT ILLNESS Ruy presents to clinic today, brought by her mother, to discuss heavy, painful periods. Mom states that Ruy has always struggled with painful heavy periods since her onset of menses. Ruy states her periods will last about 5 days. She will have terrible cramping for about the first 2 days. She will also have excessive bleeding during those days, having to change her pad about every 2 or 3 hours. She is getting regular monthly periods. Mom has tried Midol and acetaminophen but this has not provided any relief for the patient. They are wanting to discuss contraception management to see if this would help with her period symptoms. Ruy has otherwise been feeling well. They did want to disc uss some lifestyle modifications for weight loss management. MEDICATIONS Current medications: Dextroamphetamine 5 mg extended release 1 tab daily. Zyrtec as needed. ALLERGIES No known allergies. PAST MEDICAL/SURGICAL HISTORY 1. Tonsillectomy and adenoidectomy. 2. History of irritable bowel syndrome. 3. Questionable ADD history, although the patient did not relay this to me. FAMILY HISTORY The patient has had a maternal aunt with breast cancer. No family history of blood clots, strokes, or bleeding disorders. Parents and siblings are healthy. SOCIAL HISTORY The patient is a nonsmoker. There are no smokers in the home. VITAL SIGNS Temp 36.8, heart rate 89, respiratory rate 18, blood pressure 102/68, oxygen 97% on room air, cm, weight 87.6 kg. BMI is 30. PHYSICAL EXAMINATION GENERAL: Ruy is alert and oriented. She is calm, cooperative, and pleasant throughout our exam. Appears to be in no acute distress. LUNGS: Lungs are clear to auscultation. CARDIAC: Regular rate and rhythm. EXTREMITIES: No peripheral edema. Capillary refill is brisk. Pulses are palpable and symmetric. SKIN: No rashes. NECK: Supple. No masses or lymphadenopathy. IMPRESSION/REPORT/PLAN 1. Dysmenorrhea. We discussed contraception management as she has tried yizt-fvb-tjybmhl medications without much relief. We will start her on low-dose combined oral contraceptive pills. Had a long discussion with patient and mother about possible risks and side effects of these medications, including risk for blood clots. Patient and mother both understood and would like to proceed with trying thismedication. We also discussed administration, how to use and what to do if she has days of missed pills. Patient is not currently sexually active. We will try Lutera 1 tab daily and the patient will follow up in 3 months if symptoms are not improved or sooner if symptoms worsen. I have also advised topretreat with ibuprofen 1 day prior to her period and the 2 days her period is more severe. She can take up to 600 mg twice daily with food. The patient and mother both understood and agreed. One year supply given. 2. Overweight. BMI is close to 30. We discussed healthy diet and overall daily exercise for more healthy weight. According to mom and patient, the patient eats a fairly healthy diet but is quite sedentary so we discussed safe exercise practices to help her increase calories burned. ADMINISTRATIVE BILLING This was a 25 minute office visit, of which 20 minutes was spent in direct patient and parent counseling and discussion. 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 - 02/25/2014 1:49 PM CDT Ambulatory Patient Summary [address] [id number] Visit Information Name: RUY NEGRETE [facility] Number: [id number] Current Date: 02/25/2014 13:49:31 Physicians Attending Provider: AUGUSTINA FOSS Primary Care Provider: MELANIA BENITEZ MD RUY [...] release) See Instructions 3 cap(s)PO Daily AM levonorgestrel-ethinyl estradiol (Lutera 100 mcg-20 mcg oral tablet) 1 Tablet(s), Oral, once a day [facility] [address] [place] [address] Stop Taking the Following Medications: Medication list as of 02-25-14 13:49 Attention: If you have any medications at home that are not on this list, DO NOT take them until youcontact your provider for clarification. Give a copy of your medication list to your primary care provider. Update your medication list any time medications or doses are changed and carry your medication list at all times in case of emergency. Electronically Signed By: AUGUSTINA FOSS Signed On:25-FEB-2014 13:49:26 Your Allergies & Intolerances Substance Reaction Symptoms Category Comments No Known Allergies Drug Your Problem List Problem Status Onset Comments Hip pain-swelling Active 08/23/2013 Your Upcoming Appointments Date Time Location Reason Provider No Appointments found Attention: Contact your local Clinic if further appointment detail needed. Your Goals/Additional instructions: Source: [facility] POWERCHART Document Id: [id number] Miscellaneous - Augustina Foss APRN, C.N.P. - 02/25/2014 1:49 PM CDT Ambulatory Discharge Medication List [address] [address] [place], [place] [phone] Visit Information Name: RUY NEGRETE [facility] Number: [id number] Visit Date: 02/25/2014 13:49:30 Attending Provider: AUGUSTINA FOSS Primary Care Provider: MELANIA BENITEZ MD RUY [...] release) See Instructions 3 cap(s)PO Daily AM levonorgestrel-ethinyl estradiol (Lutera 100 mcg-20 mcg oral tablet) 1 Tablet(s), Oral, once a day New [facility] to [facility] [address] [place] [address] Stop Taking the Following Medications: Medication list as of 02-25-14 13:49 Attention: If you have any medications at home that are not on this list, DO NOT take them until youcontact your provider for clarification. Give a copy of your medication list to your primary care provider. Update your medication list any time medications or doses are changed and carry your medication list at all times in case of emergency. Electronically Signed By: AUGUSTINA FOSS Signed On:25-FEB-2014 13:49:26 Additional Information: Source: [facility] POWERCHART Document Id: [id number] Miscellaneous - Aury Benítez L.P.N. 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 Intake/History Entered On: 02/25/2014 13:11 CDT Performed On: 02/25/2014 13:05 CDT by AURY BENÍTEZ LPN Intake Chief Complaint : Severe menstrual cramps Onset of Symptoms : always had bad cramp LMP Date : Ambulatory Intake Additional Information : occassional heavy bleeding Temperature Core : 36.8 DegC(Converted to: 98.2 DegF) Peripheral Pulse Rate : 89 /min Respiratory Rate : 18 /min Heart Rhythm : Regular AURY BENÍTEZ LPN - 02/25/2014 13:05 CDT Systolic Blood Pressure : 110 mmHg Diastolic Blood Pressure : 87 mmHg NIBP Mean : 95 mmHg AURY BENÍTEZ LPN - 02/25/2014 13:21 CDT BP Location : Right upper extremity Blood Pressure Cuff Size : Large SpO2 : 97 % Oxygen Therapy : Room air Height : 171.5 cm(Converted to: 5 ft 8 inch(es), 68 inch(es)) Actual Weight : 87.6 kg(Converted to: 193 lb 2 oz) Weight Source : Mechanical lift Dosing Weight Clinic : 87.6 kg Clinic BSA : 2.04 Body Mass Index : 29.78 kg/m2 AURY BENÍTEZ LPN - 02/25/2014 13:05 CDT General Info Preferred Name : Ruy Mode of Arrival : Ambulatory Accompanied By : Mother Chief Complaint : mentrual cramps Information Given By : Patient Languages : Arabic Is Patient Female and 13-50 no hysterectomy : Yes Status : Patient denies Are you ? : No AURY BENÍTEZ LPN - 02/25/2014 13:05 CDT Subjective Pain Symptoms : No AURY BENÍTEZ LPN - 02/25/2014 13:05 CDT Dependent Habits Tobacco Use/Currently Using : No Exposure to Tobacco Smoke : Care provider denies smoking in home Smoking Status : Never smoker AURY BENÍTEZ LPN - 02/25/2014 13:05 CDT Caffeine Use Grid Amount : very rare AURY BENÍTEZ LPN - 02/25/2014 13:05 CDT Source: [facility] StylectCHART Document Id: [id number] CDT!5 documented in this encounter Plan of Treatment Not on filedocumented as of this encounter Visit Diagnoses Not on filedocumented in this encounter
--- OUTSIDE RECORDS SUMMARY | 2022-03-28 15:53 | XMS_ITS ---
:1999 Author Care Team Providers Name Role Phone DR. VALERI OBREGON Referring Provider [phone] VALERI OBREGON MD Referring Provider [phone] Allergies Code Code System Name Reaction Severity Status Onset Dairy Aid ? ? Active ? [id number] RxNorm Gluten ? ? Active ? Medications Name Status Start Date Stop Date ? ? dextroamphetamine sulfate ER 10 mg capsule,extended Completed ? 08/10/2021 release dextroamphetamine sulfate ER 15 mg capsule,extended Active ? Not available release Falmina (28) 0.1 mg-20 mcg tablet Active ? Not available fluoxetine 10 mg capsule Active ? Not ibrahima ilable TAKE 1 CAPSULE BY MOUTH ALONG WITH 20MG IN AM. fluoxetine 20 mg capsule Active ? Not ibrahima ilable TAKE 1 CAPSULE BY MOUTH EVERY MORNING. hydroxyzine pamoate 25 mg capsule Active ? Not available propranolol 40 mg tablet Active ? Not ibrahima ilable Notes: Zyertc Problems Name Status Onset Date Source ? 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 Myofascial Pain Active 06/27/2021 ? Bilateral Temporomandibular Joint Pain Active ? Procedures Date Name Performed by ? ? Tonsilectomy/adenoids Information not av ailable ? Jaw Arthroscopy/surgery Information not available Notes: upper and lower Results Lab Results None recorded. Past Encounters 08/10/2021 Upper Airway Resistance Syndrome; Bilate ral Temporomandibular Joint Pain; Myofascial Pain Sandy Gilbert, DDS: [facility] [address] [place] [address], Ph. 06/27/2021 Upper Airway Resistance Syndrome; Bilate ral Temporomandibular Joint Pain; Myofascial Pain Sandy Gilbert DDS: [facility] [address] [address] [place] [address], Ph. Social History Tobacco Smoking Status Never Smoker Vaccine List Notes: [employer] Covid vaccine completed 11/2020 Plan of Care Patient Instructions 1. inserted a SomnoDent Dorsal Air+ MAD and instructed pt. in care and use of the MAD appliance, including instructions in a jaw exercise (using an AM Legal Secretary I fabricated for the patient today) the pa tient was instructed to do every morning to re-establish their bite. I also discussed limitations and expectations of treatment using a MAD. 2. 1/2 hr w/Dr. Gilbert in 2-3 weeks to mon itor symptoms 3. I did not advance the mandibular comp onent which is at ~-1.5mm 1. I educated the pt. in advantages and disadvantages of ERNESTO treatment using a MAD, including the possibility that the patient's occlusal relationship could climate change analyst time with continued use of the MAD. 2. If the patient decides to initiate tr eatment I recommended that he/she follow up with me to take impressions to fabricate a mandibular advancement device (MAD) that I will custom fit for the patient 4 weeks after impressions. (retruded= -7 .0mm, protruded= +4.0mm, treatment= - 1.0mm, take G.G. to -1.0mm) 3. P.A. SomnoDent Dorsal Air+ MAD applia nce. Mandibular midline is 0.5mm left of maxillary midline 4. . After the initial fitting, it chadic ally takes ~2 months to determine the optimum treatment position that will provide maximally restorative sleep. Once this position has been determined I will crystal mmend that the patient follow up with hi s/her sleep physician to have a follow up sleep study while using the MAD. Reminders Provider Appointments None recorded. ? ? Lab None recorded. ? ? Referral None recorded. ? ? Procedures None recorded. ? ? Surgeries None recorded. ? ? Imaging None recorded. ? ? Vitals 08/10/2021 09:30AM SPLINT INSERT Height Weight BMI Blood Pressure 5 ft 8 in 230 lbs 35 kg/m2 143/89 mm[Hg] 06/27/2021 03:30PM NEW PATIENT (Sleep Apnea) Height Weight BMI Blood Pressure 5 ft 8 in 230 lbs 35 kg/m2 128/92 mm[Hg]
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
--- NOTE | 2022-03-28 16:56 | ED.SKABFB ---
HPI - Skin/Abscess/Foreign Bdy General Date Seen: 03/28/22 Chief complaint: Skin/Abscess/Foreign Body Stated complaint: Cyst lower back Time Seen by Provider: 03/28/22 15:19 Source: patient Mode of arrival: ambulatory Limitations: no limitations History of Present Illness HPI narrative: Patient is a very nice 21-year-old female presents here with abscess in between her gluteal cleft, she has had this for couple days increasing pain, she went to the urgent care and was told to come to the emergency room, for it to be incised and drained, I told her that make sure she tells them that she needs a CT scan of this area. No history of any abdominal pain fevers chills she has had a previous pilonidal abscess. Related Data Home Medications Medication Instructions Recorded Confirmed norelgestromin 150 mcg-e.estradiol patch 03/28/22 35 mcg/24 hr weekly transderm patch (Xulane) Previous Rx's Medication Instructions Recorded amoxicillin 875 mg-potassium 1 tab PO BID pilonidal #14 tabs 03/28/22 clavulanate 125 mg tablet hydrocodone 5 mg-acetaminophen 325 1 tab PO TID PRN pain #14 tabs 03/28/22 mg tablet Allergies Allergy/AdvReac Type Severity Reaction Status Date / Time gluten Allergy Mild Verified 03/28/22 13:27 dairy Allergy Mild Uncoded 03/28/22 13:27 Review of Systems Status of ROS: Reports: 6 or more systems reviewed and unremarkable except as noted in History and below PFSH PFSH Social History Smoking Status: Never smoker Do you use any of these nicotine containing products: None Second hand tobacco smoke exposure: No How often do you have a drink containing alcohol: never How often do you have six or more drinks on one occasion: Never AUDIT-C Alcohol total score: 0 Exam Narrative: Exam Narrative: This very nice lady presents, she is lying on her stomach, or in the prone position. Clearly on the left side of her gluteal cleft has a pilonidal abscess of approximately 5-6 cm., there is no other issue going on. I discussed with her the treatment of this would be incision drainage and packing it, then follow-up with surgery, as this is been twice now, she should have definitive surgery. She was comfortable with this, 1% xylocaine x9 mL is infiltrated resulted in good and anesthesia. My nurse Delma present, I was able to use a 15 scalpel blade make a 1 cm incision, and get out approximately 15 mL of pus. I did not do cultures as this is normally not done, I did pack it with half-inch regular packing. X approximately 8 in. She tolerated this well estimated blood loss less than 3 mL. Const: Vital Signs, click to edit/add: Vital Signs - 24 hr 03/28/22 13:22 Temperature 98.6 F Pulse Rate [Right Pulse Oximeter] 123 H Respiratory Rate 16 Blood Pressure [Ri ght Upper Arm] 137/72 Pulse Oximetry 97 Oxygen Delivery Me thod Room Air Documenting provider has reviewed patient's vital signs: yes Course Vital Signs Vital signs: Initial Vital Signs Temperature 98.6 F 03/28/22 13:22 Temperature Source Temporal Artery Scan 03/28/22 13:22 Pulse Rate 123 H 03/28/22 13:22 Pulse Rhythm 03/28/22 13:22 Respiratory Rate 16 03/28/22 13:22 Blood Pressure 137/72 03/28/22 13:22 Blood Pressure Mean 93 03/28/22 13:22 Blood Pressure Position Sitting 03/28/22 13:22 Pulse Oximetry 97 03/28/22 13:22 Oxygen Delivery Method 03/28/22 13:22 Vital Signs Temperature 98.6 F 03/28/22 13:22 Pulse Rate 123 H 03/28/22 13:22 Respiratory Rate 16 03/28/22 13:22 Blood Pressure 137/72 03/28/22 13:22 Pulse Oximetry 97 03/28/22 13:22 Oxygen Delivery Method 03/28/22 13:22 Temperature 98.6 F 03/28/22 13:22 Pulse Rate 123 H 03/28/22 13:22 Respiratory Rate 16 03/28/22 13:22 Blood Pressure 137/72 03/28/22 13:22 Pulse Oximetry 97 03/28/22 13:22 Oxygen Delivery Method 03/28/22 13:22 Discharge Plan Discharge Clinical Impression: Cyst, pilonidal, with abscess Patient Disposition: Home w/ Parent or Adult Condition: Improved Instructions: Pilonidal Cyst (ED), Abscess Follow-up (ED), Pilonidal Cyst Excision (DC) Additional Instructions: Home rest sits baths t.i.d., antibiotics as directed, Vicodin for breakthrough pain, follow-up in 1-2 weeks with surgery, please advance packing half an inch a day. Over the next 5-6 days until it is completely out. Return here if increasing fevers chills or other issues. Prescriptions: New hydrocodone-acetaminophen 5-325 mg tablet 1 tab PO TID PRN (Reason: pain) Qty: 14 0RF amoxicillin-pot clavulanate 875-125 mg tablet 1 tab PO BID Qty: 14 0RF No Action Xulane 150-35 mcg/24 hr patch weekly Follow Up/Referrals: Rakel Carr MD [Staff Physician] - Juan Patterson MD [Staff Physician] - Ro Albert MD [Staff Physician] - Provider,Not a Local [Primary Care Provider] - Stand Alone Forms: [email or web address] Info Instructions
== END 2022-03-28 17:02 | disposition home or self-care (01) ==
PROVIDERS: Emergency Provider Family Medicine
DX: L05.01 Pilonidal cyst with abscess (principal)
CPT/HCPCS: 10080; 99283; 99284; A9270